=== PATIENT | male | born 1970 | race African-American/Black ===

== ENCOUNTER 2025-04-21 12:29 | Inpatient (IN) ==
--- NOTE | 2025-04-21 13:18 | Emergency Department Note ---
Impression & Plan Thrombocytopenia, Acute idiopathic thrombocytopenic purpura, Chronic anticoagulation, Deep vein thrombosis (DVT) of left upper extremity ED Provider Note CHIEF COMPLAINT: Low platelets HISTORY OF PRESENTING ILLNESS: This 55-year-old male patient presents to the emergency department with a friend for evaluation of low platelets and a concern for bruising The patient states that he was seen in the ER yesterday and was told he had low platelets. Admission was recommended, but the patient declined admission. Today he looks like he has worsening bruising in his mouth as well as bruising to his abdomen and legs. The patient also has blood in his urine which is new today. He denies any hematochezia or melena. Denies any hemoptysis or hematemesis. He is on Eliquis for history of a known DVT with extension into the SVC. He denies any history of low platelet counts. He has been seeing Dr. Farrar of hematology due to his DVTs. No known family history of bleeding disorders. No known personal history of bleeding disorders. Denies any recent injury or trauma. The patient's white blood cell count yesterday was 6.91. Hemoglobin was 12.6 and hematocrit 37.9. Platelet count was 0. aPTT elevated at 65, but other coags were normal. BUN elevated at 24 and glucose 110. CMP otherwise without concerning abnormalities. A consult with Dr. Perry of ENT was made in the ER last night due to the bruising like oral lesions of the buccal membrane and tongue. After reviewing pictures, she did not feel the patient required emergent treatment, but biopsy to be considered if symptoms persist. The patient was ordered TXA swish and spit. The patient declined admission. The patient was to follow-up with hematology this morning. He follows with [facility] hematology and per patient they told him to come back to the ER this morning. He last saw hematology on 04/04/2025. Per their note, he had thrombophilia workup which revealed normal protein C, protein S, and Antithrombin III. Factor V Leiden and prothrombin gene mutation were negative. The DRVVT and/or lupus sensitive APTT screen are prolonged. Additional reflex testing suggest the presence of a factor Xa inhibitor. Recommended repeat LA testing when patient is off anticoagulation. The patient's Doppler ultrasound revealed an occlusive venous thrombus throughout the left internal jugular and brachiocephalic veins, distal extension to the visualized superior vena cava. Vascular surgery evaluated the case and he was to continue with anticoagulation. 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 He had a CT scan of the chest and MRI of the abdomen done that showed bilateral adrenal nodules of indeterminate significance as well as a 2.6 cm indeterminate nodule of the left suprarenal fossa and lesion in the right hepatic lobe which is most likely hemangioma. No history of IV drug use. Unclear etiology for the extensive thrombosis of the left upper extremity. He was to continue the Eliquis indefinitely per hematology. REVIEW OF SYSTEMS: See HPI for pertinent positives and pertinent negatives. ALLERGIES: Chantix, Pollen MEDICATIONS: See below PAST MEDICAL HISTORY: See below PHYSICAL EXAM: VITALS: Vitals are noted on the nurse's note and reviewed by myself. GENERAL: Non toxic, in no acute distress, non-diaphoretic. SKIN: The patient has multiple areas of ecchymosis to his abdomen and lower legs. No obvious petechiae or purpura at this time, but due to the patient's skin tone, faint petechiae or purpura may be missed. Capillary refill <2 sec. EYES: PERRLA. EOMI. Conjunctivae without injection, sclerae without icterus. NOSE: Patent without discharge. No active bleeding. No septal hematoma. MOUTH: The patient has multiple areas of bruising over his tongue, gingiva, and buccal membranes. No active bleeding. Mucous membranes moist. Uvula midline. Airway patent. NECK: Supple without nuchal rigidity. HEART: Regular rate and rhythm without murmurs gallops or rubs. LUNGS: Clear to auscultation bilaterally without wheezes, rales or rhonchi. No retractions or accessory muscle use. ABDOMEN: Positive bowel sounds x 4. Normal tympanic percussion. Soft, nontender to palpation. No masses or hepatosplenomegaly. Em sign negative. No CVA tenderness. No guarding, rigidity, or rebound tenderness. No focal RLQ or LLQ tenderness. NEURO: Patient was alert and oriented. No focal neurological deficits. DIFFERENTIAL DIAGNOSIS: Differential diagnosis includes ITP, TTP, DIC, heparin- induced thrombocytopenia, drug-induced thrombocytopenia, malignancy, infection, coagulopathy, acute intracranial bleed, acute intra abdominal/pelvic bleed, acute cardiopulmonary bleed or abnormality. PE, or others. ED COURSE AND MEDICAL DECISION MAKING: HISTORY FROM INDEPENDENT HISTORIAN: Additional history was obtained from the patient's friend MEDICATIONS GIVEN: 500 mL normal saline solution bolus. Decadron 40 mg IV and IVIG dosed by the ED pharmacist. MONITOR: Continuous air sampling and monitoring: Order was placed for continuous air sampling and monitoring. Patient was placed on the air sampling and monitoring and continuous pulse ox. Patient was noted to be in normal sinus rhythm at an initial rate of 80 bpm per my interpretation. EKG: EKG was interpreted by myself as normal sinus rhythm at 74 bpm with no acute ST or T wave abnormalities. INTERPRETATION OF LABS: I interpreted the labs with full lab results as below in the lab section of this note. Laboratory results pertinent to the emergent complaint are discussed in the MDM section below. The patient was advised to follow up with their PCP and/or specialist(s) for further outpatient monitoring and management of any abnormal results. INTERPRETATION OF IMAGING: Imaging studies were interpreted by myself and read by radiology as per the imaging section of this note. The patient was advised to follow up with their PCP and/or specialist(s) for further outpatient management of any non-emergent abnormal findings. CT scan of the head without contrast showed no evidence for acute intracranial bleed. 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 CTA of the chest showed no evidence for PE. There is a small mass versus thrombus or flow artifact within the SVC which is likely secondary to the patient's known DVT in this area. Atelectasis versus early pneumonia of the medial left lung base. Multinodular goiter with possible right nodule measuring 3 cm. No evidence for acute bleeding. CT scan of the abdomen and pelvis with IV contrast shows no evidence for acute bleeding. Bilateral adrenal nodules with nonspecific density. Mass posterior to the left adrenal gland could represent an exophytic adrenal nodule or other finding. EXTERNAL RECORDS REVIEWED: I reviewed the patient's hematology office visit notes from [facility] as summarized above. Some on the nonemergent findings on the imaging today were also seen on previous imaging and are undergoing outpatient workup. CHRONIC MEDICAL/SOCIAL CONDITIONS AFFECTING CARE: Chronic Eliquis use CONSULTATIONS: Case management. ED pharmacist. Dr. Farrar of [facility] hematology. On-call hospitalist. MDM SUMMARY: I examined the patient. The patient was seen yesterday in the ER for bruising in his mouth. He was found to have a platelet count of 0. The patient declined admission at that time. The patient was to follow-up with hematology this morning as an outpatient, but was advised to come to the ER since he developed blood in his urine. The patient states he still has the bruising in his mouth as well as bruising to his abdomen and legs. He also has the hematuria, but denies other symptoms of bleeding. He denies any other symptoms at this time. An IV lock was placed and labs were drawn. The patient was given 500 mL normal saline solution bolus. White blood cell count normal at 6.66. Hemoglobin stable at 12.4. Platelet count is still 0. Peripheral smear is still pending. aPTT 66, but PT/INR and PTT ratio normal. Fibrinogen elevated at 504. LDH normal at 141. CMP without concerning abnormalities. Lipase slightly elevated at 109. High-sensitivity troponin normal. Magnesium normal. Urinalysis with 3+ protein, 3+ glucose, 2+ ketones, 3+ blood, 3+ bilirubin, positive urobilinogen, 3+ leukocyte esterase, greater than 20 red blood cells, greater than 50 white blood cells, and 2+ bacteria. The patient's blood type is A positive. CT scan of the head, chest, abdomen, and pelvis as above showed no evidence for acute bleeding. However, it does show nonemergent findings that will need further workup/evaluation. I had a meaningful discussion about this patient with Dr. Reynoso who agrees with my assessment and the treatment plan. The patient was agreeable to admission at this time. I spoke with Dr. Farrar of [facility] hematology. He recommended the patient to receive Decadron 40 mg IV once a day for 4 days as well as IVIG. He did not recommend platelet transfusion at this time. The patient was given his first dose of Decadron 40 mg IV in the ER. I spoke with the ED pharmacist in regards to dosing of the IVIG. I spoke with the on-call hospitalist who agreed to admit the patient for further evaluation and treatment. Please refer to their dictation for further details. The patient's care was transferred in stable condition. DIAGNOSIS: Acute thrombocytopenia - presumed ITP DVT of the left upper extremity Chronic Eliquis use Past Med/Surg History Problem List (Updated 04/21/25 @ 23:50 by Jocelyn Soliman PA-C) Deep vein thrombosis (DVT) of left upper extremity (Acute) Acute idiopathic thrombocytopenic purpura (Acute) Essential hypertension Adrenal nodule Dyslipidemia Type 2 diabetes mellitus Chronic anticoagulation (Acute) Thrombocytopenia (Acute) Medical History (Updated 04/21/25 @ 23:50 by Jocelyn Soliman PA-C) Deep vein thrombosis (DVT) of left upper extremity Atopic dermatitis Surgical History (Updated 04/21/25 @ 16:19 by Jessica Arteaga PA-C) No pertinent past surgical history Social History (Updated 04/21/25 @ 18:20 by Jessica Arteaga PA-C) Smoking Status: Current every day smoker Tobacco Type: Cigarettes Cigarettes Per Day: 10/day; Hx Alcohol Use: Yes Alcohol type: beer Hx Substance Use: Yes Substance Use Type Other:: 3 times per week Preferred Language: [place] Communication Ability: Effective Skidder Operator Required: No Beliefs That Will Affect Care: None Current Living Situation: Significant Other current occupation: [employer] Other Information That Helps Us Care for You: No Feels Safe at Home: Yes Safety Concerns: Feels Safe At This Time Assistive Devices: Glasses Allergies Allergies Allergy/AdvReac Type Severity Reaction Status Date / Time pollen extracts Allergy Unknown UNKNWN Verified 04/20/25 15:33 varenicline [From Chantix] AdvReac Insomnia Verified 04/20/25 15:32 Home Meds Home Medications Medication Instructions Recorded Confirmed apixaban 5 mg tablet (Eliquis) 5 mg PO BID 04/20/25 04/21/25 empagliflozin 25 mg tablet 25 mg PO QAM 04/20/25 04/21/25 (Jardiance) fluocinonide 0.05 % topical cream 1 applic topical DAILY 04/20/25 04/21/25 losartan 100 mg tablet 100 mg PO QAM 04/20/25 04/21/25 metformin 500 mg tablet,extended 500 mg PO UD 04/20/25 04/21/25 release 24 hr triamcinolone acetonide 0.1 % 1 applic topical BID 04/20/25 04/21/25 topical ointment Results & Data (ED) Vital Signs Vital Signs - 24 hr 04/21/25 12:32 04/21/25 13:00 04/21/25 13:22 Temperature 36.6 C Temperature Source Temporal Artery Scan Pulse Rate 82 82 83 Pulse Rate [Finger] Pulse Rate from SpO2 Sensor 81 83 Pulse Rhythm [Finger] Pulse Strength [Finger] Respiratory Rate 18 18 15 Respiratory Effort / Characteristics Non-Labored Spontaneous Respiratory Depth Normal Respiratory Pattern Blood Pressure 167/104 H 178/90 H Blood Pressure [Right Arm] Blood Pressure Mean 125 127 Blood Pressure Mean [Right Arm] Blood Pressure Position [Right Arm] Pulse Oximetry 95 97 96 Oxygen Delivery Method Room Air Room Air Room Air Oxygen Flow Rate Sepsis Recent Fever Within 48 Hours No Sepsis New/Unexplained Change in Mental Status No Sepsis Action Taken by Nursing No Action Required 04/21/25 13:23 04/21/25 13:47 04/21/25 14:00 Temperature Temperature Source Pulse Rate 75 Pulse Rate [Finger] 77 Pulse Rate from SpO2 Sensor 75 Pulse Rhythm [Finger] Regular Pulse Strength [Finger] Normal Respiratory Rate 18 18 Respiratory Effort / Characteristics Non-Labored Respiratory Depth Normal Respiratory Pattern Regular Blood Pressure 174/112 H Blood Pressure [Right Arm] 178/90 H Blood Pressure Mean 132 Blood Pressure Mean [Right Arm] 119 Blood Pressure Position [Right Arm] Lying Pulse Oximetry 97 95 96 Oxygen Delivery Method Room Air Room Air Room Air Oxygen Flow Rate 0 Sepsis Recent Fever Within 48 Hours Sepsis New/Unexplained Change in Mental Status Sepsis Action Taken by Nursing 04/21/25 14:41 04/21/25 14:41 04/21/25 14:41 Temperature Temperature Source Pulse Rate 71 Pulse Rate [Finger] 73 Pulse Rate from SpO2 Sensor Pulse Rhythm [Finger] Pulse Strength [Finger] Respiratory Rate 20 16 Respiratory Effort / Characteristics Non-Labored Spontaneous Respiratory Depth Normal Respiratory Pattern Regular Blood Pressure 155/91 H 155/91 H Blood Pressure [Right Arm] 155/91 H Blood Pressure Mean 106 106 Blood Pressure Mean [Right Arm] 112 Blood Pressure Position [Right Arm] Pulse Oximetry 97 99 Oxygen Delivery Method Room Air Oxygen Flow Rate Sepsis Recent Fever Within 48 Hours Sepsis New/Unexplained Change in Mental Status Sepsis Action Taken by Nursing 04/21/25 16:00 04/21/25 17:15 Temperature Temperature Source Pulse Rate 74 Pulse Rate [Finger] 81 Pulse Rate from SpO2 Sensor 74 Pulse Rhythm [Finger] Regular Pulse Strength [Finger] Normal Respiratory Rate 19 18 Respiratory Effort / Characteristics Non-Labored Respiratory Depth Normal Respiratory Pattern Regular Blood Pressure 174/119 H Blood Pressure [Right Arm] 159/98 H Blood Pressure Mean 134 Blood Pressure Mean [Right Arm] 118 Blood Pressure Position [Right Arm] Lying Pulse Oximetry 98 99 Oxygen Delivery Method Room Air Oxygen Flow Rate 0 Sepsis Recent Fever Within 48 Hours Sepsis New/Unexplained Change in Mental Status Sepsis Action Taken by Nursing Laboratory Data 04/21/25 12:50 04/21/25 12:50 Lab Results 04/21/25 04/21/25 04/21/25 Range/Units 12:50 14:05 14:42 WBC 6.66 (4.8-10.8) K/ul RBC 4.41 L (4.70-6.10) M/uL Hgb 12.4 L (14.0-18.0) g/dl Hct 36.8 L (42.0-52.0) % MCV 83.4 (80.0-100.0) fL MCH 28.1 (25.0-34.0) pg MCHC 33.7 (32.0-36.0) g/dL RDW Std Deviation 43.8 (36.4-46.3) fL RDW Coeff of Johnny 14.5 (11.5-14.5) % Plt Count 0 L* (130-400) K/uL Immature Gran % (Auto) 0.6 % Neut % (Auto) 56.0 % Lymph % (Auto) 31.2 % [place] % (Auto) 10.5 % Eos % (Auto) 1.4 % Baso % (Auto) 0.3 % Reticulocyte % (Auto) 1.39 (0.50-2.00) % Neut # (Auto) 3.73 (1.40-6.50) K/uL Lymph # (Auto) 2.08 (1.20-3.40) K/uL [place] # (Auto) 0.70 H (0.11-0.59) K/uL Eos # (Auto) 0.09 (0.00-0.50) K/uL Baso # (Auto) 0.02 (0.00-0.20) K/uL Reticulocyte # 0.060 (0.020-0.100) 10^6/uL Immature Gran # (Auto) 0.04 (0.01-0.20) K/uL Platelet Estimate Signific. Decreased L (Normal) PT 10.6 (9.0-12.0) Seconds INR 1.0 (0.9-1.1) APTT 66 H (21-31) Seconds PTT Ratio 2.5 Fibrinogen 504 H (184-400) mg/dl Sodium 141 (136-145) mmol/L Potassium 3.8 (3.5-5.1) mmol/L Chloride 110 H (98-107) mmol/L Carbon Dioxide 23 (21-32) mmol/L Anion Gap 8 (3-11) BUN 22 (6-23) mg/dl Creatinine 0.89 (0.6-1.4) mg/dl Est Cr Clr Drug Dosing 139.2 ml/min eGFR 100.58 BUN/Creatinine Ratio 24.7 H (10-20) Glucose 106 H (70-99(Fasting)) mg/dl Calcium 8.9 (8.6-10.3) mg/dl Magnesium 1.9 (1.7-2.4) mg/dl Total Bilirubin 0.4 (0.2-1.0) mg/dl AST 22 (13-39) U/L ALT 22 (7-52) U/L Alkaline Phosphatase 98 (34-104) U/L Lactate Dehydrogenase TNP 141 Troponin I High Sens 7.7 (0-20) pg/ml Total Protein 8.1 (6.0-8.3) gm/dl Albumin 3.5 (3.4-5.0) gm/dl Globulin 4.6 H (2.5-4.0) gm/dl Albumin/Globulin Ratio 0.8 L (0.9-2) Lipase 109 H (11-82) U/L Urine Color Red Urine Appearance Turbid A (Clear) Urine pH 8.5 H (4.5-7.5) Ur Specific [place] <= 1.005 (1.000-1.030) Urine Protein 3+ H (Negative) Urine Glucose (UA) 3+ H (Negative) Urine Ketones 2+ H (Negative) Urine Blood 3+ H (Negative) Urine Nitrite Negative (Negative) Urine Bilirubin 3+ H (Negative) Urine Urobilinogen Positive H (Negative) Ur Leukocyte Esterase 3+ H (Negative) Urine RBC >20 H (0-2) /hpf Urine WBC >50 H (0-5) /hpf Ur Epithelial Cells 0-2 (0-2) /hpf Urine Bacteria 2+ H (None Seen) Urine Comment Blood Type Antibody Screen 04/21/25 Range/Units 15:09 WBC (4.8-10.8) K/ul RBC (4.70-6.10) M/uL Hgb (14.0-18.0) g/dl Hct (42.0-52.0) % MCV (80.0-100.0) fL MCH (25.0-34.0) pg MCHC (32.0-36.0) g/dL RDW Std Deviation (36.4-46.3) fL RDW Coeff of Johnny (11.5-14.5) % Plt Count (130-400) K/uL Immature Gran % (Auto) % Neut % (Auto) % Lymph % (Auto) % [place] % (Auto) % Eos % (Auto) % Baso % (Auto) % Reticulocyte % (Auto) (0.50-2.00) % Neut # (Auto) (1.40-6.50) K/uL Lymph # (Auto) (1.20-3.40) K/uL [place] # (Auto) (0.11-0.59) K/uL Eos # (Auto) (0.00-0.50) K/uL Baso # (Auto) (0.00-0.20) K/uL Reticulocyte # (0.020-0.100) 10^6/uL Immature Gran # (Auto) (0.01-0.20) K/uL Platelet Estimate (Normal) PT (9.0-12.0) Seconds INR (0.9-1.1) APTT (21-31) Seconds PTT Ratio Fibrinogen (184-400) mg/dl Sodium (136-145) mmol/L Potassium (3.5-5.1) mmol/L Chloride (98-107) mmol/L Carbon Dioxide (21-32) mmol/L Anion Gap (3-11) BUN (6-23) mg/dl Creatinine (0.6-1.4) mg/dl Est Cr Clr Drug Dosing ml/min eGFR BUN/Creatinine Ratio (10-20) Glucose (70-99(Fasting)) mg/dl Calcium (8.6-10.3) mg/dl Magnesium (1.7-2.4) mg/dl Total Bilirubin (0.2-1.0) mg/dl AST (13-39) U/L ALT (7-52) U/L Alkaline Phosphatase (34-104) U/L Lactate Dehydrogenase Troponin I High Sens (0-20) pg/ml Total Protein (6.0-8.3) gm/dl Albumin (3.4-5.0) gm/dl Globulin (2.5-4.0) gm/dl Albumin/Globulin Ratio (0.9-2) Lipase (11-82) U/L Urine Color Urine Appearance (Clear) Urine pH (4.5-7.5) Ur Specific [place] (1.000-1.030) Urine Protein (Negative) Urine Glucose (UA) (Negative) Urine Ketones (Negative) Urine Blood (Negative) Urine Nitrite (Negative) Urine Bilirubin (Negative) Urine Urobilinogen (Negative) Ur Leukocyte Esterase (Negative) Urine RBC (0-2) /hpf Urine WBC (0-5) /hpf Ur Epithelial Cells (0-2) /hpf Urine Bacteria (None Seen) Urine Comment Blood Type A Positive Antibody Screen NEGATIVE Administered Medications Pantoprazole Sodium (Protonix) 40 mg in 10 mls @ 5 mls/min IV BID CHRIST Stop: 05/21/25 20:59 Last Admin: 04/21/25 22:12 Dose: 5 mls/min Documented By: SCAR Insulin Aspart (Insulin Aspart Per Unit Charge) 0 units SC ACHS CHRIST Stop: 05/21/25 20:59 Last Admin: 04/21/25 20:47 Dose: Not Given Documented By: SCAR Nicotine (Nicotine 21 Mg/24 Hr Tdsy) 1 patch TD QAM [facility]ST Stop: 05/21/25 20:09 Last Admin: 04/21/25 20:45 Dose: Not Given Documented By: SCAR Discontinued Medications Sodium Chloride (Nss) 500 mls @ 999 mls/hr IV .Q31M ONE Stop: 04/21/25 14:14 Last Infusion: 04/21/25 15:10 Dose: Infused Documented By: Admin: 04/21/25 14:39 Dose: 999 mls/hr Documented By: JAYDEN Immune Globulin (Octagam 10%) 200 mls @ 63 mls/hr IV Q1H CHRIST; Protocol Stop: 04/21/25 23:29 Last Admin: 04/21/25 22:40 Dose: 3.17 mg/kg/min, 200 mls/hr Documented By: Titration: 04/21/25 22:40 Dose: Infused Documented By: Titration: 04/21/25 22:09 Dose: 2.38 mg/kg/min, 150 mls/hr Documented By: Titration: 04/21/25 21:36 Dose: 1.43 mg/kg/min, 90 mls/hr Documented By: Admin: 04/21/25 20:33 Dose: 1 mg/kg/min, 63 mls/hr Documented By: Titration: 04/21/25 20:12 Dose: Infused Documented By: Titration: 04/21/25 18:32 Dose: 3.17 mg/kg/min, 200 mls/hr Documented By: Admin: 04/21/25 18:28 Dose: 1 mg/kg/min, 63 mls/hr Documented By: MEENU Immune Globulin (Octagam 10%) 50 mls @ 63 mls/hr IV NOW ONE; Protocol Stop: 04/21/25 17:02 Last Titration: 04/21/25 18:27 Dose: Infused Documented By: Admin: 04/21/25 17:39 Dose: 1 mg/kg/min, 63 mls/hr Documented By: MEENU Dexamethasone 40 mg/ Dextrose 35 mls @ 70 mls/hr IV NOW ONE Stop: 04/21/25 16:59 Last Infusion: 04/21/25 17:59 Dose: Infused Documented By: Admin: 04/21/25 17:29 Dose: 70 mls/hr Documented By: MEENU Ioversol (Optiray 320 125ml) 118 ml IV ONCE ONE Stop: 04/21/25 14:28 Last Admin: 04/21/25 14:28 Dose: 118 ml Documented By: DAVI Imaging Data Radiologist's Impression: Head CT 04/21/25 13:36 CT SCAN OF THE BRAIN WITHOUT IV CONTRAST CLINICAL HISTORY: Evaluate for bleed. COMPARISON STUDY: None TECHNIQUE: Unenhanced axial CT scan of the brain was performed from the vertex to the skull base. A dose lowering technique was utilized adhering to the principles of ALARA. FINDINGS: No acute intracranial hemorrhage, midline shift or mass effect is present. A round 6 mm hyperdense focus at the foramen of Monro represents a colloid cyst. There is no hydrocephalus. Basal cisterns are patent. No extra axial collections are present. There are no findings to suggest acute dural sinus thrombosis or acute territorial infarct. There are no calvarial fracture. IMPRESSION: 1. No acute intracranial findings. 2. 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 No hydrocephalus. ACT 112: Negative or not required by law. Electronically signed by: Gustavo Lima M.D. 04/21/2025 2:49 PM Abdomen/Pelvis CT 04/21/25 13:[address] WITH IV CONTRAST CT DOSE: 4103.67 mGy.cm HISTORY: thrombocytopenia, hematuria, abdominal bruising TECHNIQUE: Multiaxial CT images of the abdomen and pelvis were performed following the IV administration of 120 cc of Optiray, A dose lowering technique was utilized adhering to the principles of ALARA. COMPARISON STUDY: None FINDINGS: ABDOMEN: There are a few tiny cysts in the liver. There is mild fatty liver. Otherwise the liver, gallbladder, spleen, and pancreas are unremarkable. There are bilateral adrenal nodules measuring 2 cm on the left and 1.7 cm on the right. There is a 2.6 cm oval mass posterior to the left adrenal gland and superior to the pancreatic tail series 9 image 98. Kidneys show no hydronephrosis or calculi. No abdominal aortic aneurysm. Pelvis: Prostate is grossly unremarkable. Urinary bladder is mildly distended. There is sigmoid diverticulosis. No acute diverticulitis. Normal appendix. No bowel inflammation or obstruction. No free fluid, free air, or abscess. No soft tissue hematoma seen. No acute osseous findings. IMPRESSION: 1. No acute findings seen. 2. Bilateral adrenal nodules with nonspecific density on this IV contrast exam. Mass posterior to the left adrenal gland could represent an exophytic adrenal nodule or other finding. Suggest follow-up CT or MRI with adrenal mass protocol. 3. Otherwise as described. ACT 112: Positive. There are findings on this exam that require communication between the performing entity and the patient following Patient Test Result Information Act [place] Act 112) guidelines. The above report was generated using voice recognition software. It may contain grammatical, syntax or spelling errors. Electronically signed by: Lanre Lugo M.D. 04/21/2025 2:54 PM Chest CTA 04/21/25 13:43 CT angio chest PE protocol CT DOSE: 4104 HISTORY: PE. TECHNIQUE: Multiple CTA images of the chest were obtained after the intravenous administration of 120 ml Optiray. Coronal and sagittal MIPS were obtained from the axial data set and were submitted for review. All measurements were obtained according to NASCET criteria. A dose lowering technique was utilized adhering to the principles of ALARA. COMPARISON STUDY: None FINDINGS: There is mild bronchial wall thickening suggesting bronchitis. Inspiration is shallow and there is mild atelectasis in the lung bases. There is no lobar consolidation or pleural effusion. There is a small area of patchy groundglass opacity medial left lung base which could represent atelectasis or small area of pneumonitis/early pneumonia. No pneumothorax. There is a large multinodular goiter with a possible right-sided nodule measuring up to 3 cm. No enlarged adenopathy. No pericardial effusion. No pulmonary embolism seen. There is a 1.5 cm lobulated density within the SVC. No thoracic aortic dissection or aneurysm. There is a small area of mixed calcified and noncalcified plaque at the aortic arch. No significant aortic luminal narrowing seen. IMPRESSION: 1. No pulmonary embolism seen. 2. Small mass versus thrombus or flow artifact within the SVC. Suggest follow-up chest CT with normal venous phase contrast to see if this finding persists. 3. Atelectasis versus early pneumonia medial left lung base. 4. Multinodular goiter with possible right nodule measuring 3 cm. If this has not been previously evaluated, suggest follow-up thyroid ultrasound. ACT 112: Positive. There are findings on this exam that require communication between the performing entity and the patient following Patient Test Result Information Act ([place] Act 112) guidelines. The above report was generated using voice recognition software. It may contain grammatical, syntax or spelling errors. Electronically signed by: Lanre Lugo M.D. 04/21/2025 2:55 PM Discharge Plan Visit Data Chief Complaint: Facial Injury/Pain Stated Complaint: BLOOD CLOTS ED Provider: Danuta Reynoso ED Midlevel Provider: Jocelyn Soliman Discharge Problem: Thrombocytopenia, Acute idiopathic thrombocytopenic purpura, Chronic anticoagulation, Deep vein thrombosis (DVT) of left upper extremity Patient Disposition: Admitted As Inpatient Condition: Fair Discharge Instructions Interventions: ED Discharge Assessment Last Done: 04/21/25 19:27
[2025-04-21 14:16] LABS: Partial Thromboplastin Ratio 2.5; Partial Thromboplastin Time 66 Seconds (21-31); Prothrombin Time 10.6 Seconds (9.0-12.0)
[2025-04-21] MEDS: OPTIRAY 320 125ml IV ONE (14:28)
[2025-04-21 14:30] LABS: Hematocrit (blood only) 36.8 % (42.0-52.0); Hemoglobin 12.4 g/dl (14.0-18.0); Mean Corpuscular Hemoglobin 28.1 pg (25.0-34.0); Mean Corpuscular Hgb Conc 33.7 g/dL (32.0-36.0); Mean Corpuscular Volume 83.4 fL (80.0-100.0); Platelet Count 0 K/uL (130-400); RDW Coefficient of Variation 14.5 % (11.5-14.5); RDW Standard Deviation 43.8 fL (36.4-46.3); Red Blood Count 4.41 M/uL (4.70-6.10); White Blood Count 6.66 K/ul (4.8-10.8)
[2025-04-21 14:31] LABS: Alanine Aminotransferase 22 U/L (7-52); Albumin Globulin Ratio 0.8 (0.9-2); Alkaline Phosphatase 98 U/L (34-104); Anion Gap 8 (3-11); Aspartate Aminotransferase 22 U/L (13-39); BUN Creatinine Ratio 24.7 (10-20); Bilirubin,Total 0.4 mg/dl (0.2-1.0); Blood Urea Nitrogen 22 mg/dl (6-23); Calcium 8.9 mg/dl (8.6-10.3); Carbon Dioxide 23 mmol/L (21-32); Chloride 110 mmol/L (98-107); Creatinine Clr Calc Pharmacy 139.2 ml/min; Globulin 4.6 gm/dl (2.5-4.0); Glucose 106 mg/dl (70-99(Fasting)); Lipase 109 U/L (11-82); Magnesium 1.9 mg/dl (1.7-2.4); Potassium 3.8 mmol/L (3.5-5.1); Sodium 141 mmol/L (136-145); Total Protein 8.1 gm/dl (6.0-8.3); Troponin I High Sensitivity 7.7 pg/ml (0-20)
[2025-04-21] MEDS: SODIUM CHLORIDE 0.9% 500 ML IV ONE (14:39)
[2025-04-21 14:42] LABS: Basophils # (auto) 0.02 K/uL (0.00-0.20); Basophils % (auto) 0.3 %; Eosinophils # (auto) 0.09 K/uL (0.00-0.50); Eosinophils % (auto) 1.4 %; Immature Granulocytes # (auto) 0.04 K/uL (0.01-0.20); Immature Granulocytes % (auto) 0.6 %; Lymphocytes # (auto) 2.08 K/uL (1.20-3.40); Lymphocytes % (auto) 31.2 %; Monocytes % (auto) 10.5 %; Neutrophils # (auto) 3.73 K/uL (1.40-6.50); Platelet Estimate Signific. Decreased (Normal); Reticulocyte % 1.39 % (0.50-2.00)
[2025-04-21 14:49] LABS: Fibrinogen 504 mg/dl (184-400)
--- NOTE | 2025-04-21 14:52 | CT Scan Report ---
CT SCAN OF THE BRAIN WITHOUT IV CONTRAST CLINICAL HISTORY: Evaluate for bleed. COMPARISON STUDY: None TECHNIQUE: Unenhanced axial CT scan of the brain was performed from the vertex to the skull base. A dose lowering technique was utilized adhering to the principles of ALARA. FINDINGS: No acute intracranial hemorrhage, midline shift or mass effect is present. A round 6 mm hyp erdense focus at the foramen of Monro represents a colloid cyst. There is no hydrocephalus. Basal cis terns are patent. No extra axial collections are present. There are no findings to suggest acute dura l sinus thrombosis or acute territorial infarct. There are no calvarial fracture. IMPRESSION: 1. No acute intracranial findings. 2. 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 No hydrocephalus. ACT 112: Negative or not required by law. Electronically signed by: Gustavo Lima M.D. 04/21/2025 2:49 PM
--- NOTE | 2025-04-21 14:57 | CT Scan Report ---
CT angio chest PE protocol CT DOSE: 4104 HISTORY: PE. TECHNIQUE: Multiple CTA images of the chest were obtained after the intravenous administration of 120 ml Optiray. Coronal and sagittal MIPS were obtained from the axial data set and were submitted for review. All measurements were obtained according to NASCET criteria. A dose lowering technique was u tilized adhering to the principles of ALARA. COMPARISON STUDY: None FINDINGS: There is mild bronchial wall thickening suggesting bronchitis. Inspiration is shallow and t here is mild atelectasis in the lung bases. There is no lobar consolidation or pleural effusion. Ther e is a small area of patchy groundglass opacity medial left lung base which could represent atelectas is or small area of pneumonitis/early pneumonia. No pneumothorax. There is a large multinodular goite r with a possible right-sided nodule measuring up to 3 cm. No enlarged adenopathy. No pericardial eff usion. No pulmonary embolism seen. There is a 1.5 cm lobulated density within the SVC. No thoracic ao rtic dissection or aneurysm. There is a small area of mixed calcified and noncalcified plaque at the aortic arch. No significant aortic luminal narrowing seen. IMPRESSION: 1. No pulmonary embolism seen. 2. Small mass versus thrombus or flow artifact within the SVC. Suggest follow-up chest CT with normal venous phase contrast to see if this finding persists. 3. Atelectasis versus early pneumonia medial left lung base. 4. Multinodular goiter with possible right nodule measuring 3 cm. If this has not been previously joaquin luated, suggest follow-up thyroid ultrasound. ACT 112: Positive. There are findings on this exam that require communication between the performing entity and the patient following Patient Test Result Information Act [place] Act 112) guidelines. The above report was generated using voice recognition software. It may contain grammatical, syntax o r spelling errors. Electronically signed by: Lanre Lugo M.D. 04/21/2025 2:55 PM
--- NOTE | 2025-04-21 14:57 | CT Scan Report ---
ABDOMEN AND PELVIS CT WITH IV CONTRAST CT DOSE: 4103.67 mGy.cm HISTORY: thrombocytopenia, hematuria, abdominal bruising TECHNIQUE: Multiaxial CT images of the abdomen and pelvis were performed following the IV administrat ion of 120 cc of Optiray, A dose lowering technique was utilized adhering to the principles of ALARA . COMPARISON STUDY: None FINDINGS: ABDOMEN: There are a few tiny cysts in the liver. There is mild fatty liver. Otherwise the liver, gal lbladder, spleen, and pancreas are unremarkable. There are bilateral adrenal nodules measuring 2 cm o n the left and 1.7 cm on the right. There is a 2.6 cm oval mass posterior to the left adrenal gland a nd superior to the pancreatic tail series 9 image 98. Kidneys show no hydronephrosis or calculi. No a bdominal aortic aneurysm. Pelvis: Prostate is grossly unremarkable. Urinary bladder is mildly distended. There is sigmoid diver ticulosis. No acute diverticulitis. Normal appendix. No bowel inflammation or obstruction. No free fl uid, free air, or abscess. No soft tissue hematoma seen. No acute osseous findings. IMPRESSION: 1. No acute findings seen. 2. Bilateral adrenal nodules with nonspecific density on this IV contrast exam. Mass posterior to the left adrenal gland could represent an exophytic adrenal nodule or other finding. Suggest follow-up C T or MRI with adrenal mass protocol. 3. Otherwise as described. ACT 112: Positive. There are findings on this exam that require communication between the performing entity and the patient following Patient Test Result Information Act [place] Act 112) guidelines. The above report was generated using voice recognition software. It may contain grammatical, syntax o r spelling errors. Electronically signed by: Lanre Lugo M.D. 04/21/2025 2:54 PM
[2025-04-21 14:59] LABS: Appearance Urine Turbid (Clear); Bilirubin Urine 3+ (Negative); Blood Urine 3+ (Negative); Color Urine Red; Glucose Urine UA 3+ (Negative); Ketones Urine 2+ (Negative); Leukocyte Esterase Urine 3+ (Negative); Nitrite Urine Negative (Negative); Protein Urine 3+ (Negative); Specific Gravity Urine <= 1.005 (1.000-1.030); Urobilinogen Urine Positive (Negative); pH Urine 8.5 (4.5-7.5)
[2025-04-21 15:43] LABS: Epithelial Cell Urine 0-2 /hpf (0-2); RBC Urine >20 /hpf (0-2); WBC Urine >50 /hpf (0-5)
[2025-04-21 15:44] LABS: Bacteria Urine 2+ (None Seen)
[2025-04-21] MEDS ORDERED: dexAMETHasone**PF** 10 MG/ML VIAL IV ONE (15:56)
[2025-04-21] MEDS ORDERED: Nursing to Pharmacy Communication SCH (17:15)
[2025-04-21] MEDS: dexAMETHasone 40 MG in DEXTROSE 5% 25 ML IV ONE (17:29)
[2025-04-21] MEDS: Octagam 10% IVIG 5 gram bottle IV ONE (17:39)
--- NOTE | 2025-04-21 17:40 | History & Physical Report ---
Date of Service April 21, 2025 Assessment & Plan (1) Acute idiopathic thrombocytopenic purpura: (2) Type 2 diabetes mellitus: (3) Essential hypertension: (4) Deep vein thrombosis (DVT) of left upper extremity: (5) Adrenal nodule: Plan This is a 55 y/o male with DM2, HTN, recent UE DVT, bilateral adrenal nodules, dyslipidemia, and other history as outlined below who presents to the ED with worsening intraoral bleeding and hematuria. Work-up in the ED revealed a platelet count of 0. Hgb was stable from yesterday. CT abd/pel showed no acute findings, continues to show bilateral adrenal nodules. CT head showed no acute intracranial findings, 6 mm colloid cyst at foramen on Monro. CTA chest shows no pulmonary embolism but showed small mass vs. thrombus or flow artifact within the SVC, atelectasis vs. early pneumonia medial left lung base, multinodular goiter with possible right nodule measuring 3 cm (has previously had an FNA of the thyroid that was benign). ED provider spoke with pt's circulator who recommended admission with treatment for possible ITP. #Acute thrombocytopenia #Presumed ITP - Admit to PCU - Per hematology, dexamethasone x 4 days and IVIG - Follow CBC for response - Peripheral smear pending - Hold Eliquis for now due to bleeding risk #Recent LUE DVT with extension to SVC - CTA chest findings noted - Holding Eliquis for now as above - Will need to coordinate with hematology on appropriate timing to resume AC #Possible UTI - culture pending - Starting empiric ceftriaxone #Type 2 Diabetes - last A1c on 03/24/25 was 7.0 - Holding oral agents while admitted - Insulin sliding scale - BSG ACHS - Diabetic diet #Hypertension - BPs have been elevated as outpatient, pt was prescribed amlodipine but did not start due to concerns about side effects - Continue losartan at home dose - Monitor BP overnight and reevaluate in the AM - may need to consider addition of another agent #Bilateral adrenal nodules - Has seen surgery outpatient for this - recommended observation for now. Due for repeat CT in June. Pt seen and reviewed with collaborating physician, Dr. Harrington. Plan of care discussed and as outlined above. Updated pt's sister of the plan of care via phone. All questions answered. Code status: Full code DVT prophylaxis: Petrona I spent a total of 85 minutes coordinating, documenting, and providing care for this patient excluding time spent in the performance of separately billed services or time spent by another provider/QHP. Kathy Arteaga PA-C History of Present Illness Chief Complaint: bleeding in mouth, hematuria Primary Care Provider: Edenilson Roldan MD This is a 55 y/o male with DM2, HTN, recent UE DVT, bilateral adrenal nodules, dyslipidemia, and other history as outlined below who presents to the ED with worsening intraoral bleeding and hematuria. Pt developed acute DVT of the LUE in Dec 2024. Clot extended throughout the left internal jugular and brachiocephalic veins with distal extension to the SVC. Pt was started on Eliquis and evaluated by hematology. Thrombophilia workup is negative. Hematology recommended continuation of Eliquis indefinitely. Pt was seen by Dr. Mckinnon in March for the adrenal nodules - scheduled to have a f/u CT in June. 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 Yesterday, when he woke up, he noted a gritty sensation in his mouth, then noted multiple areas of intraoral ecchymosis so came to the ED for evaluation. In the ED, he was noted to have new thrombocytopenia with platelet count of 0 and was recommended to be admitted. However, pt states he became very overwhelmed and signed out AMA. Since being home, he noted worsening of the intraoral bruising and new hematuria that started last night. Pt spoke with hematology this morning who recommended he return to the ED. In the ED, labs again revealed platelets of 0 so patient was referred for admission. His main complaints are the intraoral bruising and hematuria. He notes the lesions in his mouth are painful but denies dysphagia or odynophagia. He denies epistaxis or blood in stool. 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 He denies recent illness. No chest pain, dyspnea, nausea, vomiting, syncope, BEDOYA, palpitations, unusual joint pains, peripheral edema. He is on losartan for HTN but BPs have remained elevated. He was prescribed amlodipine but did not start this due to concerns that it would cause edema. Allergies Allergy/AdvReac Type Severity Reaction Status Date / Time pollen extracts Allergy Unknown UNKNWN Verified 04/20/25 15:33 varenicline [From Chantix] AdvReac Insomnia Verified 04/20/25 15:32 Home Medications Medication Instructions Recorded Confirmed Type apixaban 5 mg tablet (Eliquis) 5 mg PO BID 04/20/25 04/21/25 History empagliflozin 25 mg tablet 25 mg PO QAM 04/20/25 04/21/25 History (Jardiance) fluocinonide 0.05 % topical cream 1 applic topical DAILY 04/20/25 04/21/25 History losartan 100 mg tablet 100 mg PO QAM 04/20/25 04/21/25 History metformin 500 mg tablet,extended 500 mg PO UD 04/20/25 04/21/25 History release 24 hr triamcinolone acetonide 0.1 % 1 applic topical BID 04/20/25 04/21/25 History topical ointment Past Med/Surg History Problem List (Updated 04/21/25 @ 18:51 by Jessica Arteaga PA-C) Acute idiopathic thrombocytopenic purpura Essential hypertension Adrenal nodule Dyslipidemia Type 2 diabetes mellitus Chronic anticoagulation (Acute) Thrombocytopenia (Acute) Medical History (Updated 04/21/25 @ 18:51 by Jessica Arteaga PA-C) Deep vein thrombosis (DVT) of left upper extremity Atopic dermatitis Surgical History (Updated 04/21/25 @ 16:19 by Jessica Arteaga PA-C) No pertinent past surgical history Social History (Updated 04/21/25 @ 18:20 by Jessica Arteaga PA-C) Smoking Status: Current every day smoker Cigarettes Per Day: 10; Hx Alcohol Use: No Hx Substance Use: Yes Substance Use Type Other:: edibles Preferred Language: Amharic current occupation: [employer] Feels Safe at Home: Yes Review of Systems Review of Systems: All systems reviewed & are unremarkable except as noted in Subjective Physical Exam Physical Exam: General: awake, alert, NAD HEENT: no scleral icterus, +multiple petechial lesions buccal mucosa, tongue, palate Neck: supple, trachea midline Heart: RRR, no M/G/R Lungs: CTA bilaterally Abdomen: soft, NTND, +BS Skin: +areas of ecchymosis bilateral UE and LE Neurologic: Ox3, no confusion or dysarthria Results & Data Results & Data Vital Signs (Past 12 Hours) Vital Signs Temp Pulse Pulse Resp BP BP Pulse Ox 04/21/25 17:15 81 18 159/98 H 99 04/21/25 16:00 74 19 174/119 H 98 04/21/25 14:41 71 16 155/91 H 99 04/21/25 14:41 155/91 H 04/21/25 14:41 73 20 155/91 H 97 04/21/25 14:00 75 18 174/112 H 96 04/21/25 13:47 95 04/21/25 13:23 77 18 178/90 H 97 04/21/25 13:22 83 15 178/90 H 96 04/21/25 13:00 82 18 167/104 H 97 04/21/25 12:32 36.6 C 82 18 95 O2 Del Method O2 Flow Rate 04/21/25 17:15 Room Air 0 04/21/25 16:00 04/21/25 14:41 04/21/25 14:41 04/21/25 14:41 Room Air 04/21/25 14:00 Room Air 04/21/25 13:47 Room Air 04/21/25 13:23 Room Air 0 04/21/25 13:22 Room Air 04/21/25 13:00 Room Air 04/21/25 12:32 Room Air Laboratory Results Lab Results 04/21/25 04/21/25 04/21/25 Range/Units 12:50 14:05 14:42 WBC 6.66 (4.8-10.8) K/ul RBC 4.41 L (4.70-6.10) M/uL Hgb 12.4 L (14.0-18.0) g/dl Hct 36.8 L (42.0-52.0) % MCV 83.4 (80.0-100.0) fL MCH 28.1 (25.0-34.0) pg MCHC 33.7 (32.0-36.0) g/dL RDW Std Deviation 43.8 (36.4-46.3) fL RDW Coeff of Johnny 14.5 (11.5-14.5) % Plt Count 0 L* (130-400) K/uL Immature Gran % (Auto) 0.6 % Neut % (Auto) 56.0 % Lymph % (Auto) 31.2 % [place] % (Auto) 10.5 % Eos % (Auto) 1.4 % Baso % (Auto) 0.3 % Reticulocyte % (Auto) 1.39 (0.50-2.00) % Neut # (Auto) 3.73 (1.40-6.50) K/uL Lymph # (Auto) 2.08 (1.20-3.40) K/uL [place] # (Auto) 0.70 H (0.11-0.59) K/uL Eos # (Auto) 0.09 (0.00-0.50) K/uL Baso # (Auto) 0.02 (0.00-0.20) K/uL Reticulocyte # 0.060 (0.020-0.100) 10^6/uL Immature Gran # (Auto) 0.04 (0.01-0.20) K/uL Platelet Estimate Signific. Decreased L (Normal) PT 10.6 (9.0-12.0) Seconds INR 1.0 (0.9-1.1) APTT 66 H (21-31) Seconds PTT Ratio 2.5 Fibrinogen 504 H (184-400) mg/dl Sodium 141 (136-145) mmol/L Potassium 3.8 (3.5-5.1) mmol/L Chloride 110 H (98-107) mmol/L Carbon Dioxide 23 (21-32) mmol/L Anion Gap 8 (3-11) BUN 22 (6-23) mg/dl Creatinine 0.89 (0.6-1.4) mg/dl Est Cr Clr Drug Dosing 139.2 ml/min eGFR 100.58 BUN/Creatinine Ratio 24.7 H (10-20) Glucose 106 H (70-99(Fasting)) mg/dl Calcium 8.9 (8.6-10.3) mg/dl Magnesium 1.9 (1.7-2.4) mg/dl Total Bilirubin 0.4 (0.2-1.0) mg/dl AST 22 (13-39) U/L ALT 22 (7-52) U/L Alkaline Phosphatase 98 (34-104) U/L Lactate Dehydrogenase TNP 141 Troponin I High Sens 7.7 (0-20) pg/ml Total Protein 8.1 (6.0-8.3) gm/dl Albumin 3.5 (3.4-5.0) gm/dl Globulin 4.6 H (2.5-4.0) gm/dl Albumin/Globulin Ratio 0.8 L (0.9-2) Lipase 109 H (11-82) U/L Urine Color Red Urine Appearance Turbid A (Clear) Urine pH 8.5 H (4.5-7.5) Ur Specific [place] <= 1.005 (1.000-1.030) Urine Protein 3+ H (Negative) Urine Glucose (UA) 3+ H (Negative) Urine Ketones 2+ H (Negative) Urine Blood 3+ H (Negative) Urine Nitrite Negative (Negative) Urine Bilirubin 3+ H (Negative) Urine Urobilinogen Positive H (Negative) Ur Leukocyte Esterase 3+ H (Negative) Urine RBC >20 H (0-2) /hpf Urine WBC >50 H (0-5) /hpf Ur Epithelial Cells 0-2 (0-2) /hpf Urine Bacteria 2+ H (None Seen) Urine Comment Blood Type Antibody Screen 04/21/25 Range/Units 15:09 WBC (4.8-10.8) K/ul RBC (4.70-6.10) M/uL Hgb (14.0-18.0) g/dl Hct (42.0-52.0) % MCV (80.0-100.0) fL MCH (25.0-34.0) pg MCHC (32.0-36.0) g/dL RDW Std Deviation (36.4-46.3) fL RDW Coeff of Johnny (11.5-14.5) % Plt Count (130-400) K/uL Immature Gran % (Auto) % Neut % (Auto) % Lymph % (Auto) % [place] % (Auto) % Eos % (Auto) % Baso % (Auto) % Reticulocyte % (Auto) (0.50-2.00) % Neut # (Auto) (1.40-6.50) K/uL Lymph # (Auto) (1.20-3.40) K/uL [place] # (Auto) (0.11-0.59) K/uL Eos # (Auto) (0.00-0.50) K/uL Baso # (Auto) (0.00-0.20) K/uL Reticulocyte # (0.020-0.100) 10^6/uL Immature Gran # (Auto) (0.01-0.20) K/uL Platelet Estimate (Normal) PT (9.0-12.0) Seconds INR (0.9-1.1) APTT (21-31) Seconds PTT Ratio Fibrinogen (184-400) mg/dl Sodium (136-145) mmol/L Potassium (3.5-5.1) mmol/L Chloride (98-107) mmol/L Carbon Dioxide (21-32) mmol/L Anion Gap (3-11) BUN (6-23) mg/dl Creatinine (0.6-1.4) mg/dl Est Cr Clr Drug Dosing ml/min eGFR BUN/Creatinine Ratio (10-20) Glucose (70-99(Fasting)) mg/dl Calcium (8.6-10.3) mg/dl Magnesium (1.7-2.4) mg/dl Total Bilirubin (0.2-1.0) mg/dl AST (13-39) U/L ALT (7-52) U/L Alkaline Phosphatase (34-104) U/L Lactate Dehydrogenase Troponin I High Sens (0-20) pg/ml Total Protein (6.0-8.3) gm/dl Albumin (3.4-5.0) gm/dl Globulin (2.5-4.0) gm/dl Albumin/Globulin Ratio (0.9-2) Lipase (11-82) U/L Urine Color Urine Appearance (Clear) Urine pH (4.5-7.5) Ur Specific [place] (1.000-1.030) Urine Protein (Negative) Urine Glucose (UA) (Negative) Urine Ketones (Negative) Urine Blood (Negative) Urine Nitrite (Negative) Urine Bilirubin (Negative) Urine Urobilinogen (Negative) Ur Leukocyte Esterase (Negative) Urine RBC (0-2) /hpf Urine WBC (0-5) /hpf Ur Epithelial Cells (0-2) /hpf Urine Bacteria (None Seen) Urine Comment Blood Type A Positive Antibody Screen NEGATIVE Diagnostic Findings Head CT 04/21/25 13:36 CT SCAN OF THE BRAIN WITHOUT IV CONTRAST CLINICAL HISTORY: Evaluate for bleed. COMPARISON STUDY: None TECHNIQUE: Unenhanced axial CT scan of the brain was performed from the vertex to the skull base. A dose lowering technique was utilized adhering to the principles of ALARA. FINDINGS: No acute intracranial hemorrhage, midline shift or mass effect is present. A round 6 mm hyperdense focus at the foramen of Monro represents a colloid cyst. There is no hydrocephalus. Basal cisterns are patent. No extra axial collections are present. There are no findings to suggest acute dural sinus thrombosis or acute territorial infarct. There are no calvarial fracture. IMPRESSION: 1. No acute intracranial findings. 2. 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 No hydrocephalus. ACT 112: Negative or not required by law. Electronically signed by: Gustavo Lima M.D. 04/21/2025 2:49 PM Abdomen/Pelvis CT 04/21/25 13:[address] WITH IV CONTRAST CT DOSE: 4103.67 mGy.cm HISTORY: thrombocytopenia, hematuria, abdominal bruising TECHNIQUE: Multiaxial CT images of the abdomen and pelvis were performed following the IV administration of 120 cc of Optiray, A dose lowering technique was utilized adhering to the principles of ALARA. COMPARISON STUDY: None FINDINGS: ABDOMEN: There are a few tiny cysts in the liver. There is mild fatty liver. Otherwise the liver, gallbladder, spleen, and pancreas are unremarkable. There are bilateral adrenal nodules measuring 2 cm on the left and 1.7 cm on the right. There is a 2.6 cm oval mass posterior to the left adrenal gland and superior to the pancreatic tail series 9 image 98. Kidneys show no hydronephrosis or calculi. No abdominal aortic aneurysm. Pelvis: Prostate is grossly unremarkable. Urinary bladder is mildly distended. There is sigmoid diverticulosis. No acute diverticulitis. Normal appendix. No bowel inflammation or obstruction. No free fluid, free air, or abscess. No soft tissue hematoma seen. No acute osseous findings. IMPRESSION: 1. No acute findings seen. 2. Bilateral adrenal nodules with nonspecific density on this IV contrast exam. Mass posterior to the left adrenal gland could represent an exophytic adrenal nodule or other finding. Suggest follow-up CT or MRI with adrenal mass protocol. 3. Otherwise as described. ACT 112: Positive. There are findings on this exam that require communication between the performing entity and the patient following Patient Test Result Information Act [place] Act 112) guidelines. The above report was generated using voice recognition software. It may contain grammatical, syntax or spelling errors. Electronically signed by: Lanre Lugo M.D. 04/21/2025 2:54 PM Chest CTA 04/21/25 13:43 CT angio chest PE protocol CT DOSE: 4104 HISTORY: PE. TECHNIQUE: Multiple CTA images of the chest were obtained after the intravenous administration of 120 ml Optiray. Coronal and sagittal MIPS were obtained from the axial data set and were submitted for review. All measurements were obtained according to NASCET criteria. A dose lowering technique was utilized adhering to the principles of ALARA. COMPARISON STUDY: None FINDINGS: There is mild bronchial wall thickening suggesting bronchitis. Inspiration is shallow and there is mild atelectasis in the lung bases. There is no lobar consolidation or pleural effusion. There is a small area of patchy groundglass opacity medial left lung base which could represent atelectasis or small area of pneumonitis/early pneumonia. No pneumothorax. There is a large multinodular goiter with a possible right-sided nodule measuring up to 3 cm. No enlarged adenopathy. No pericardial effusion. No pulmonary embolism seen. There is a 1.5 cm lobulated density within the SVC. No thoracic aortic dissection or aneurysm. There is a small area of mixed calcified and noncalcified plaque at the aortic arch. No significant aortic luminal narrowing seen. IMPRESSION: 1. No pulmonary embolism seen. 2. Small mass versus thrombus or flow artifact within the SVC. Suggest follow-up chest CT with normal venous phase contrast to see if this finding persists. 3. Atelectasis versus early pneumonia medial left lung base. 4. Multinodular goiter with possible right nodule measuring 3 cm. If this has not been previously evaluated, suggest follow-up thyroid ultrasound. ACT 112: Positive. There are findings on this exam that require communication between the performing entity and the patient following Patient Test Result Information Act ([place] Act 112) guidelines. The above report was generated using voice recognition software. It may contain grammatical, syntax or spelling errors. Electronically signed by: Lanre Lugo M.D. 04/21/2025 2:55 PM Medications Administered Discontinued Medications Sodium Chloride (Nss) 500 mls @ 999 mls/hr IV .Q31M ONE Stop: 04/21/25 14:14 Last Infusion: 04/21/25 15:10 Dose: Infused Documented By: Admin: 04/21/25 14:39 Dose: 999 mls/hr Documented By: JAYDEN Dexamethasone 40 mg/ Dextrose 35 mls @ 70 mls/hr IV NOW ONE Stop: 04/21/25 16:59 Last Admin: 04/21/25 17:29 Dose: 70 mls/hr Documented By: MEENU Ioversol (Optiray 320 125ml) 118 ml IV ONCE ONE Stop: 04/21/25 14:28 Last Admin: 04/21/25 14:28 Dose: 118 ml Documented By: DAVI Code Status & VTE Plan VTE Prophylaxis Plan VTE Prophylaxis will be ordered: Yes Supervising Physician Co-Signing Physician Notes Patient seen and examined independently. Discussed with above provider. Patient with a past medical history of DVT on Eliquis presented to the hospital with severe thrombocytopenia. He had presented initially on 04/20 but decided to leave AGAINST MEDICAL ADVICE but presented back to the ED today again. He has petechiae in bilateral lower extremity as well as oral mucosa. He also reports hematuria. Denies any hemoptysis, altered mental status, vision changes or abdominal pain. ED provider reached out to Dr. Farrar(patient's circulator) who recommended patient to be started on dexamethasone for 4 days and IVIG for possible ITP. Will start ceftriaxone for possible UTI. Discussed with patient's sister( who is a physician) over the phone. Plan to coordinate with patient's circulator in next subsequent days depending on clinical improvement. I have reviewed the advanced practitioner's documentation, and I agree with, and take responsibility for the plan of care I spent a total of 30 minutes coordinating, documenting, and providing care for this patient excluding time spent in the performance of separately billed services. 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
[2025-04-21] MEDS: Octagam 10% IVIG 20 gram bottle IV SCH (18:28)
[2025-04-21] MEDS ORDERED: GLUCOSE 40% GEL 15 GM TUBE PO PRN (20:10)
[2025-04-21] MEDS ORDERED: DEXTROSE 50% 50 ML SYRINGE IV PRN (20:10)
[2025-04-21] MEDS ORDERED: ACETAMINOPHEN 325 MG TAB PO PRN (20:10)
[2025-04-21] MEDS ORDERED: GLUCOSE 10 TAB/TUBE PO PRN (20:10)
[2025-04-21] MEDS ORDERED: CARBOHYDRATES FOR HYPOGLYCEMIA PO PRN (20:10)
[2025-04-21] MEDS ORDERED: GLUCAGON FOR INJ 1 MG VIAL SQ PRN (20:10)
[2025-04-21] MEDS: NICOTINE 21 MG/24 HR TDSY TD SCH (20:45)
[2025-04-21] MEDS: INSULIN ASPART PER UNIT CHARGE SC SCH (20:47)
[2025-04-21] MEDS: PANTOprazole 40 MG/10 ML SYR IV SCH (22:12)
[2025-04-22] MEDS: LOSARTAN POTASSIUM 50 MG TAB PO STA (00:17)
--- NOTE | 2025-04-22 06:39 | Electrocardiogram Report ---
Test Reason : Blood Pressure : */* mmHG Vent. Rate : 74 BPM Atrial Rate : 74 BPM P-R Int : 146 ms QRS Dur : 90 ms QT Int : 390 ms P-R-T Axes : 31 -37 -14 degrees QTcB Int : 432 ms Normal sinus rhythm Left axis deviation Minimal voltage criteria for LVH, may be normal variant ( R in aVL ) Abnormal ECG No previous ECGs available Confirmed by Clarence Fontenot ([id number]) on 04/22/2025 6:39:21 AM Referred By: Confirmed By: Clarence Fontenot
[2025-04-22 07:26] LABS: Calcium 8.5 mg/dl (8.6-10.3); Potassium 4.2 mmol/L (3.5-5.1)
--- NOTE | 2025-04-22 07:47 | Hospitalist Progress Note ---
Date of Service April 22, 2025 Assessment & Plan (1) Acute idiopathic thrombocytopenic purpura: (2) Type 2 diabetes mellitus: (3) Essential hypertension: (4) Deep vein thrombosis (DVT) of left upper extremity: (5) Adrenal nodule: Plan Mr Tapia is a 55 y/o male with DM2, HTN, recent extensive LUE DVT, bilateral adrenal nodules, dyslipidemia, and other history as outlined below admitted for concern of ITP. Work-up in the ED revealed a platelet count of 0. Hgb was stable from yesterday. CT abd/pel showed no acute findings, continues to show bilateral adrenal nodules. CT head showed no acute intracranial findings, 6 mm colloid cyst at foramen on [place]. CTA chest shows no pulmonary embolism but showed small mass vs. thrombus or flow artifact within the SVC, atelectasis vs. early pneumonia medial left lung base, multinodular goiter with possible right nodule measuring 3 cm (has previously had an FNA of the thyroid that was benign). 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 Discussion with Dr Farrar about patient's case was had, who recommended patient get transferred given his primary hematologic concerns with recent unprovoked DVT and now platelet dyscrasia. Discussed case with [place] (per patient request), plan to transfer to med/tele at [place] with accepting physician Dr. Walsh #Paroxysmal A Fib 3 min episode of A fib on tele starting metoprolol 12.5 q 6 h holding AC iso thrombocytopenia #Acute thrombocytopenia, suspected ITP - Per hematology, recommend transfer to tertiary care -Continue while admitted dexamethasone -s/p 105gm IVG - Follow CBC for response - Peripheral smear noncontributory - Hold Eliquis for now due to bleeding risk -elevated globlins/protein gap, ordered SPEP #Recent LUE DVT with extension to SVC - CTA chest findings noted, residual burden in SVC - Holding Eliquis for now as above #Possible UTI - culture pending, asymptomatic - continue empiric ceftriaxone #Type 2 Diabetes - last A1c on 03/24/25 was 7.0 - Holding oral agents while admitted - Insulin sliding scale - BSG ACHS - Diabetic diet #Hypertension - BPs have been elevated as outpatient, pt was prescribed amlodipine but did not start due to concerns about side effects - Continue losartan at home dose - Monitor BP overnight and reevaluate in the AM - may need to consider addition of another agent #Bilateral adrenal nodules - Has seen surgery outpatient for this - recommended observation for now. Due for repeat CT in June. stable on CT this admission Code status: Full code DVT prophylaxis: SCDs Admission and Anticipated Discharge Date Admission Date: April 21, 2025 Subjective Reports subjective improvement in mouth lesions and resolved tongue pain endorses anxiety over situation denies chest pain, palpitations, visible blood in urine Discussed at length with sisters and patient about transfer given ongoing conflicting hematologic issues warranting further evaluation Physical Exam Constitutional: WD/WN, vitals as above ENMT: near resolved purpura on tongue, some residual lesion on left lateral border as well as on bilateral buccal mucosa Cardiovascular: tachycardic Gastrointestinal (Abdomen): normal bowel sounds, soft, nontender, no hepatosplenomegaly Results & Data Results & Data Vital Signs (Past 12 Hours) Vital Signs Temp Pulse Pulse Resp BP Pulse Ox O2 Del Method 04/22/25 02:46 36.4 C L 65 20 153/93 H 94 Room Air 04/22/25 01:35 79 04/21/25 23:32 36.7 C 77 18 176/110 H 92 Room Air 04/21/25 19:50 36.6 C 75 20 187/98 H 94 Room Air Laboratory Results Short CBC 04/21/25 04/22/25 Range/Units 12:50 06:37 WBC 6.66 5.36 (4.8-10.8) K/ul Hgb 12.4 L 11.1 L (14.0-18.0) g/dl Hct 36.8 L 32.8 L (42.0-52.0) % Plt Count 0 L* 0 L* (130-400) K/uL BMP 04/21/25 04/22/25 12:50 06:37 Sodium 141 135 L Potassium 3.8 4.2 Chloride 110 H 107 Carbon Dioxide 23 21 BUN 22 22 Creatinine 0.89 0.88 Glucose 106 H 148 H Calcium 8.9 8.5 L Liver Function 04/21/25 Range/Units 12:50 Total Bilirubin 0.4 (0.2-1.0) mg/dl AST 22 (13-39) U/L ALT 22 (7-52) U/L Alkaline Phosphatase 98 (34-104) U/L Albumin 3.5 (3.4-5.0) gm/dl Urine 04/21/25 Range/Units 14:42 Urine Color Red Urine Appearance Turbid A (Clear) Urine pH 8.5 H (4.5-7.5) Ur Specific [place] <= 1.005 (1.000-1.030) Urine Protein 3+ H (Negative) Urine Glucose (UA) 3+ H (Negative) Medications Administered Home Medications Medication Instructions Recorded Confirmed Last Taken apixaban 5 mg tablet (Eliquis) 5 mg PO BID 04/20/25 04/21/25 04/21/25 AM DOSE empagliflozin 25 mg tablet 25 mg PO QAM 04/20/25 04/21/25 04/21/25 (Jardiance) fluocinonide 0.05 % topical cream 1 applic topical DAILY 04/20/25 04/21/25 Unknown losartan 100 mg tablet 100 mg PO QAM 04/20/25 04/21/25 04/21/25 metformin 500 mg tablet,extended 500 mg PO UD 04/20/25 04/21/25 04/21/25 release 24 hr AM triamcinolone acetonide 0.1 % 1 applic topical BID 04/20/25 04/21/25 Unknown topical ointment Active Medications Generic Name Dose Route Start Last Admin Trade Name Fanny PRN Reason Stop Dose Admin Betamethasone Dipropion Augmented 1 appln 04/22/25 09:00 04/22/25 08:11 Betamethasone Dip Aug (Diprolene) 0.05% Cr 15 Gm Tube EXT 05/22/25 08:59 1 appln DAILY CHRIST Administration Pantoprazole Sodium 40 mg in 10 mls @ 5 mls/min 04/21/25 21:00 04/21/25 22:12 Protonix IV 05/21/25 20:59 5 mls/min BID CHRIST Administration Insulin Aspart 0 units 04/21/25 21:00 04/22/25 08:09 Insulin Aspart Per Unit Charge SC 05/21/25 20:59 16 units ACHS CHRIST Administration Losartan Potassium 100 mg 04/22/25 09:00 04/22/25 08:10 Losartan Potassium 50 Mg Tab PO 05/22/25 08:59 100 mg QAM CHRIST Administration Miscellaneous 1 each 04/22/25 08:59 04/22/25 08:10 Remove Nicoderm Patch N/A 05/22/25 08:58 Not Given [id number] [facility] Nicotine 1 patch 04/21/25 20:10 04/22/25 08:13 Nicotine 21 Mg/24 Hr Tdsy TD 05/21/25 20:09 Not Given QAM [facility] (2) Type 2 diabetes mellitus Diabetes mellitus complication detail: with dermatitis Diabetes mellitus complication status: with skin complications Diabetes mellitus usp insulin use: without usp use Qualified Code(s): E11.620 - Type 2 diabetes mellitus with diabetic dermatitis (4) Deep vein thrombosis (DVT) of left upper extremity Affected thrombotic vein of extremity: unspecified vein of extremity Chronicity: unspecified Qualified Code(s): I82.622 - Acute embolism and thrombosis of deep veins of left upper extremity
[2025-04-22] MEDS: LOSARTAN POTASSIUM 50 MG TAB PO SCH (08:10)
[2025-04-22 08:11] LABS: Hematocrit (blood only) 32.8 % (42.0-52.0); Hemoglobin 11.1 g/dl (14.0-18.0); Mean Corpuscular Hemoglobin 28.5 pg (25.0-34.0); Mean Corpuscular Hgb Conc 33.8 g/dL (32.0-36.0); Mean Corpuscular Volume 84.1 fL (80.0-100.0); Platelet Count 0 K/uL (130-400); RDW Coefficient of Variation 14.4 % (11.5-14.5); RDW Standard Deviation 43.6 fL (36.4-46.3); White Blood Count 5.36 K/ul (4.8-10.8)
[2025-04-22] MEDS: BETAMETHASONE DIP AUG (DIPROLENE) 0.05% CR 15 GM TUBE EXT SCH (08:11)
[2025-04-22 08:27] LABS: Basophils # (auto) 0.01 K/uL (0.00-0.20); Basophils % (auto) 0.2 %; Immature Granulocytes # (auto) 0.03 K/uL (0.01-0.20); Immature Granulocytes % (auto) 0.6 %; Lymphocytes # (auto) 1.14 K/uL (1.20-3.40); Lymphocytes % (auto) 21.3 %; Monocytes # (auto) 0.11 K/uL (0.11-0.59); Monocytes % (auto) 2.1 %; Neutrophils # (auto) 4.07 K/uL (1.40-6.50); Neutrophils % (auto) 75.8 %
[2025-04-22] MEDS ORDERED: IMMUNE GLOBULIN (HUMAN) SOLN IV SCH (09:00)
[2025-04-22] MEDS: cefTRIAXone SODIUM 2,000 MG/50 ML BAG IV SCH (10:36)
[2025-04-22] MEDS: dexAMETHasone 40 MG in DEXTROSE 5% 25 ML IV SCH (10:40)
[2025-04-22] MEDS: METOPROLOL TARTRATE 25 MG TAB PO SCH (11:21)
[2025-04-22] MEDS: carvediloL 3.125 MG TAB PO SCH (12:45)
--- NOTE | 2025-04-22 13:36 | Electrocardiogram Report ---
Test Reason : Blood Pressure : */* mmHG Vent. Rate : 68 BPM Atrial Rate : 68 BPM P-R Int : 136 ms QRS Dur : 118 ms QT Int : 418 ms P-R-T Axes : 76 -15 -32 degrees QTcB Int : 444 ms Normal sinus rhythm T wave abnormality, consider inferior ischemia Abnormal ECG When compared with ECG of 21-Apr-2025 13:56, T wave inversion more evident in Inferior leads Confirmed by Sajan Arredondo ([id number]) on 04/22/2025 1:36:22 PM Referred By: REFERRED SELF Confirmed By: Sajan Arredondo
[2025-04-22] MEDS ORDERED: Octagam 10% IVIG 5 gram bottle IV SCH (21:00)
[2025-04-22] MEDS ORDERED: Octagam 10% IVIG 20 gram bottle IV SCH (22:00)
[2025-04-23 07:26] LABS: Hematocrit (blood only) 31.7 % (42.0-52.0); Mean Corpuscular Hemoglobin 28.4 pg (25.0-34.0); Mean Corpuscular Hgb Conc 34.7 g/dL (32.0-36.0); Mean Corpuscular Volume 81.9 fL (80.0-100.0); Platelet Count 0 K/uL (130-400); RDW Coefficient of Variation 14.2 % (11.5-14.5); RDW Standard Deviation 41.5 fL (36.4-46.3); Red Blood Count 3.87 M/uL (4.70-6.10); White Blood Count 11.61 K/ul (4.8-10.8)
[2025-04-23 07:31] LABS: Calcium 8.5 mg/dl (8.6-10.3); Creatinine Clr Calc Pharmacy 136.3 ml/min; Potassium 4.1 mmol/L (3.5-5.1)
[2025-04-23 08:04] LABS: Basophils # (auto) 0.01 K/uL (0.00-0.20); Basophils % (auto) 0.1 %; Immature Granulocytes # (auto) 0.07 K/uL (0.01-0.20); Immature Granulocytes % (auto) 0.6 %; Lymphocytes # (auto) 1.98 K/uL (1.20-3.40); Lymphocytes % (auto) 17.1 %; Monocytes # (auto) 0.68 K/uL (0.11-0.59); Monocytes % (auto) 5.9 %; Neutrophils # (auto) 8.87 K/uL (1.40-6.50); Neutrophils % (auto) 76.3 %
[2025-04-23] MEDS ORDERED: Octagam 10% IVIG 20 gram bottle IV SCH (22:00)
[2025-04-26 11:16] LABS: Albumin 3.3 g/dL (3.8-4.8); Alpha 1 Globulin 0.3 g/dL (0.2-0.3); Alpha 2 Globulin 0.8 g/dL (0.5-0.9); Beta-1-Globulin 0.5 g/dL (0.4-0.6); Beta-2-Globulin 0.5 g/dL (0.2-0.5); Gamma Globulin 3.3 g/dL (0.8-1.7); Monoclonal Protein Band 1 DNR g/dL (NONE DETECTED); Monoclonal Protein Band 2 DNR g/dL (NONE DETECTED); Monoclonal Protein Band 3 DNR g/dL (NONE DETECTED); Total Protein 8.8 g/dL (6.1-8.1)
--- NOTE | 2025-04-29 07:10 | Discharge Summary ---
Discharge Summary Date of Service April 29, 2025 Principal Dx & Hospital Course #1 = Principal Diagnosis (1) Acute idiopathic thrombocytopenic purpura: (2) Type 2 diabetes mellitus: (3) Essential hypertension: (4) Deep vein thrombosis (DVT) of left upper extremity: (5) Adrenal nodule: Plan Mr Tapia is a 55 y/o male with DM2, HTN, recent extensive LUE DVT, bilateral adrenal nodules, dyslipidemia, and other history as outlined below admitted for concern of ITP. Work-up in the ED revealed a platelet count of 0. Hgb was stable from yesterday. CT abd/pel showed no acute findings, continues to show bilateral adrenal nodules. CT head showed no acute intracranial findings, 6 mm colloid cyst at foramen on [place]. CTA chest shows no pulmonary embolism but showed small mass vs. thrombus or flow artifact within the SVC, atelectasis vs. early pneumonia medial left lung base, multinodular goiter with possible right nodule measuring 3 cm (has previously had an FNA of the thyroid that was benign). 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 Discussion with Dr Farrar about patient's case was had, who recommended patient get transferred given his primary hematologic concerns with recent unprovoked DVT and now platelet dyscrasia. Discussed case with [place] (per patient request), plan to transfer to med/tele at [place] with accepting physician Dr. Walsh #Paroxysmal A Fib 3 min episode of A fib on tele starting metoprolol 12.5 q 6 h holding AC iso thrombocytopenia #Acute thrombocytopenia, suspected ITP - Per hematology, recommend transfer to tertiary care -Continue while admitted dexamethasone -s/p 105gm IVG - Follow CBC for response - Peripheral smear noncontributory - Hold Eliquis for now due to bleeding risk -elevated globlins/protein gap, ordered SPEP #Recent LUE DVT with extension to SVC - CTA chest findings noted, residual burden in SVC - Holding Eliquis for now as above #Possible UTI - culture pending, asymptomatic - continue empiric ceftriaxone #Type 2 Diabetes - last A1c on 03/24/25 was 7.0 - Holding oral agents while admitted - Insulin sliding scale - BSG ACHS - Diabetic diet #Hypertension - BPs have been elevated as outpatient, pt was prescribed amlodipine but did not start due to concerns about side effects - Continue losartan at home dose - Monitor BP overnight and reevaluate in the AM - may need to consider addition of another agent #Bilateral adrenal nodules - Has seen surgery outpatient for this - recommended observation for now. Due for repeat CT in June. stable on CT this admission Code status: Full code DVT prophylaxis: SCDs Notes For Next Care Provider Medication Changes From Visit held eliquis started metoprolol iso a fib Admission HPI Per Admitting Provider This is a 55 y/o male with DM2, HTN, recent UE DVT, bilateral adrenal nodules, dyslipidemia, and other history as outlined below who presents to the ED with worsening intraoral bleeding and hematuria. Pt developed acute DVT of the LUE in Dec 2024. Clot extended throughout the left internal jugular and brachiocephalic veins with distal extension to the SVC. Pt was started on Eliquis and evaluated by hematology. Thrombophilia workup is negative. Hematology recommended continuation of Eliquis indefinitely. Pt was seen by Dr. Mckinnon in March for the adrenal nodules - scheduled to have a f/u CT in June. 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 Yesterday, when he woke up, he noted a gritty sensation in his mouth, then noted multiple areas of intraoral ecchymosis so came to the ED for evaluation. In the ED, he was noted to have new thrombocytopenia with platelet count of 0 and was recommended to be admitted. However, pt states he became very overwhelmed and signed out AMA. Since being home, he noted worsening of the intraoral bruising and new hematuria that started last night. Pt spoke with hematology this morning who recommended he return to the ED. In the ED, labs again revealed platelets of 0 so patient was referred for admission. His main complaints are the intraoral bruising and hematuria. He notes the lesions in his mouth are painful but denies dysphagia or odynophagia. He denies epistaxis or blood in stool. 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 He denies recent illness. No chest pain, dyspnea, nausea, vomiting, syncope, BEDOYA, palpitations, unusual joint pains, peripheral edema. He is on losartan for HTN but BPs have remained elevated. He was prescribed amlodipine but did not start this due to concerns that it would cause edema. Admission Exam Per Admitting Provider General: awake, alert, NAD HEENT: no scleral icterus, +multiple petechial lesions buccal mucosa, tongue, palate Neck: supple, trachea midline Heart: RRR, no M/G/R Lungs: CTA bilaterally Abdomen: soft, NTND, +BS Skin: +areas of ecchymosis bilateral UE and LE Neurologic: Ox3, no confusion or dysarthria Discharge Exam did not see on day of d/c Updated Medication List Medication Instructions Recorded Confirmed Type apixaban 5 mg tablet (Eliquis) 5 mg PO BID 04/20/25 04/21/25 History empagliflozin 25 mg tablet 25 mg PO QAM 04/20/25 04/21/25 History (Jardiance) fluocinonide 0.05 % topical cream 1 applic topical DAILY 04/20/25 04/21/25 History losartan 100 mg tablet 100 mg PO QAM 04/20/25 04/21/25 History metformin 500 mg tablet,extended 500 mg PO UD 04/20/25 04/21/25 History release 24 hr triamcinolone acetonide 0.1 % 1 applic topical BID 04/20/25 04/21/25 History topical ointment metoprolol tartrate 25 mg tablet 12.5 mg (1/2 x 25 mg) PO Q6H #0 04/22/25 Rx tabs nicotine 21 mg/24 hr daily 1 patch transdermal QAM #0 ea 04/22/25 Rx transdermal patch (Nicoderm CQ) Hospital Stay Data Consultations 04/21/25 16:59 ED Decision to Admit Stat 04/22/25 15:38 Burn CD for patient Stat 04/22/25 15:48 Burn CD for patient Stat Diagnostic Imagining Performed 04/21/25 13:36 CT head/brain wo con Stat 04/21/25 13:43 CT abd pelvis IV con only Stat CT angio chest PE protocol Stat Pending Results Patient Have Any Pending Studies at Discharge: No Discharge Instructions Given to Patient (Per Discharging Provider) You were admitted for low platelets (thrombocytopenia) Work-up in the ED revealed a platelet count of 0. CT abd/pel showed no acute findings, continues to show bilateral adrenal nodules. CT head showed no acute intracranial findings, 6 mm colloid cyst at foramen on [place]. CTA chest shows no pulmonary embolism but showed small mass vs. thrombus or flow artifact within the SVC, atelectasis vs. early pneumonia medial left lung base, multinodular goiter with possible right nodule measuring 3 cm (has previously had an FNA of the thyroid that was benign). Discussion with Dr Farrar about your case was had, who recommended patient get transferred given your primary blood-related concerns with recent unprovoked blood clot and now platelet dyscrasia. Plan to transfer to [place] with accepting physician Dr. Walsh #Paroxysmal A Fib 3 min episode of A fib on tele starting metoprolol 12.5 q 6 h holding AC iso thrombocytopenia #Acute thrombocytopenia, suspected ITP - Per hematology, recommend transfer to tertiary care -Continue while admitted dexamethasone -s/p 105gm IVG - Follow CBC for response - Peripheral smear noncontributory - Hold Eliquis for now due to bleeding risk -elevated globlins/protein gap, ordered SPEP #Recent LUE DVT with extension to SVC - CTA chest findings noted, residual burden in SVC - Holding Eliquis for now as above #Possible UTI - culture pending, asymptomatic - continue empiric ceftriaxone #Type 2 Diabetes - last A1c on 03/24/25 was 7.0 - Holding oral agents while admitted - Insulin sliding scale - BSG ACHS - Diabetic diet #Hypertension - BPs have been elevated as outpatient, pt was prescribed amlodipine but did not start due to concerns about side effects - Continue losartan at home dose - Monitor BP overnight and reevaluate in the AM - may need to consider addition of another agent #Bilateral adrenal nodules - Has seen surgery outpatient for this - recommended observation for now. Due for repeat CT in June. stable on CT this admission Total Time Total Time Spent Total Time Spent (In Minutes): 0
== END 2025-04-23 20:19 | disposition short-term general hospital (02) | DRG 813 ==
LOC: ED 12:29 → SUATTDRO 17:18 → 2S 17:18

== ENCOUNTER 2025-07-25 20:17 | Observation (INO) ==
--- NOTE | 2025-07-25 21:09 | Emergency Department Note ---
Impression & Plan Recurrent falls, MAGDA (acute kidney injury), Tachycardia, Elevated troponin, Thrombocytopenia ED Provider Note HISTORY OF PRESENT ILLNESS: Patient is a 55-year-old male presenting with generalized weakness and recurrent falls. Patient reportedly was just discharged a week and a half ago from [facility] after being admitted for intracranial hemorrhage. Patient has a history of ITP. He is on Eliquis. He reportedly has been feeling very lightheaded and dizzy like he is going to pass out when he gets up over the last 10 days. Denies any fevers or chills. No any chest pain or shortness of breath. He has fallen twice in the last 2 days secondary to this lightheadedness. He denies hitting his head with his falls. However, he was primary doctor referred him to the emergency department given his history of thrombocytopenia. Patient reports a history of DVT. Denies any PE history. Denies any abdominal pain, nausea or vomiting. Denies any dysuria or hematuria. Reports she has no lightheadedness or dizziness while seated, but only when standing. He reports good p.o. intake. ROS: as above PHYSICAL EXAM: Constitutional: Patient appears in no acute distress. HENT: Head: Normocephalic and atraumatic. Eyes: EOMI, PERRL Mouth/Throat: Mucous membranes moist. Neck: Trachea midline. Neck supple. Cardiovascular: RRR, No murmurs, rubs or gallops. Intact distal pulses. Pulmonary/Chest: No respiratory distress. Breath sounds clear and equal bilaterally. No wheezes or rales Abdominal: Abdomen soft, no tenderness, rebound or guarding. Musculoskeletal: No edema, tenderness or deformity noted. Skin: Warm and dry. No rash, erythema, pallor or cyanosis Psychiatric: Appropriate mood and affect for situation. Neurological: Alert and keenly responsive. CN II-XII grossly intact, moving all extremities equally and fully. MDM: - Vitals signs showed tachycardia - History obtained via patient. History as above. - Chronic conditions affecting care: DM-2; thrombocytopenia; HTN; ITP; HLD - Differential diagnoses include, but are not limited to: Dehydration; electrolyte abnormality; ACS; pneumonia; dysrhythmia; CVA; intracranial hemorrhage - Order placed for continuous cardiac monitoring. At this time, monitor showed rate of 82 bpm with normal sinus rhythm, per my interpretation. - External medical records reviewed. Discharge summary dated 04/29/2025 was reviewed. Patient was admitted for ITP. He had a platelet count of 0 on arrival. Patient was subsequently transferred to [facility] due to his unprovoked DVT and platelet dyscrasia - EKG image interpreted by myself showed normal sinus rhythm. Rate 97 bpm. QT 346. No acute ischemic changes. - Laboratory workup interpreted by myself showed leukocytosis (WBC 14.92); anemia (Hgb 8.6); thrombocytopenia (plt 40); normal electrolytes; MAGDA (Cr 2.06); elevated troponin (35.4) - CXR image reviewed by myself is negative for pneumonia, per my interpretation. - CT head wo contrast negative for acute pathology - CT cervical spine wo contrast negative - Orthostatic vital signs showed patient was grossly positive and noted to have significant tachycardia with position changes. - Patient was ordered 1 L normal saline for his MAGDA and orthostasis. However, when nursing went to administer the saline, the patient refused. I did elem back and discussed the results and plan of care with the patient. He reported that "I do not like this hospital and I want to be transferred to [facility]." I did discuss with the patient that based on his pathologies on laboratory workup today, we could care for him and treat him here at [facility] and he would not need transfer to a tertiary care facility. However, he is demanding that I speak with [facility]. - Did discuss case with [facility] hospitalist, Dr. Kohli, at [id number]. After discussion of the patient's test results, she reported that "this does not warrant a transfer to a tertiary care center." - Discussed tertiary care facilities recommendations with the patient and his significant other is at bedside and we called his sister to also discussed results. He is begrudgingly agreeable to admission and IV fluids at this time. - Discussion was had with rn case manager about patient's case and need for admission - Hospitalist consulted for admission - Patient admitted to [facility] for further evaluation and management. ASSESSMENT AND PLAN: Diagnosis: recurrent falls; MAGDA; tachycardia; elevated troponin; thrombocytopenia Plan: admit Past Med/Surg History Problem List (Updated 07/26/25 @ 01:57 by Danuta Reynoso MD) Thrombocytopenia (Acute) Elevated troponin (Acute) Tachycardia (Acute) MAGDA (acute kidney injury) (Acute) Recurrent falls (Acute) Deep vein thrombosis (DVT) of left upper extremity (Acute) Acute idiopathic thrombocytopenic purpura (Acute) Essential hypertension Adrenal nodule Dyslipidemia Type 2 diabetes mellitus Chronic anticoagulation (Acute) Thrombocytopenia (Acute) Medical History (Updated 07/26/25 @ 01:57 by Danuta Reynoso MD) Deep vein thrombosis (DVT) of left upper extremity Atopic dermatitis Surgical History No pertinent past surgical history Social History Smoking Status: Never smoker Tobacco Type: Cigarettes Cigarettes Per Day: 10/day; Hx Alcohol Use: Yes Alcohol type: beer Hx Substance Use: Yes Substance Use Type Other:: 3 times per week Preferred Language: Kazakh Communication Ability: Effective Blankmaker Required: No Beliefs That Will Affect Care: None Current Living Situation: Significant Other current occupation: [employer] Feels Safe at Home: Yes Assistive Devices: Glasses Allergies Allergies Allergy/AdvReac Type Severity Reaction Status Date / Time pollen extracts Allergy Intermediate ITCHY Verified 07/25/25 21:33 EYES, SNEEZING varenicline [From Chantix] AdvReac Intermediate Insomnia Verified 07/25/25 21:33 Home Meds Home Medications Medication Instructions Recorded Confirmed apixaban 5 mg tablet (Eliquis) 5 mg PO BID 04/20/25 07/25/25 fluocinonide 0.05 % topical cream 1 applic topical DAILY 04/20/25 07/25/25 losartan 100 mg tablet 100 mg PO QAM 04/20/25 07/25/25 triamcinolone acetonide 0.1 % 1 applic topical BID PRN Rash 04/20/25 07/25/25 topical ointment amlodipine 5 mg tablet 5 mg PO DAILY 07/25/25 07/25/25 aspirin 81 mg tablet,delayed 81 mg PO DAILY 07/25/25 07/25/25 release atorvastatin 80 mg tablet 80 mg PO DAILY 07/25/25 07/25/25 insulin glargine-yfgn 100 unit/mL 5 unit subcut HS 07/25/25 07/25/25 (3 mL) subcutaneous pen metoprolol tartrate 25 mg tablet 25 mg PO BID 07/25/25 07/25/25 pantoprazole 40 mg tablet,delayed 40 mg PO DAILY 07/25/25 07/25/25 release prednisone 10 mg tablet 10 mg PO DAILY 07/25/25 07/25/25 Results & Data (ED) Vital Signs Vital Signs - 24 hr 07/25/25 20:20 07/25/25 20:46 07/25/25 20:55 Temperature 36.5 C Temperature Source Temporal Artery Scan Pulse Rate - Lying 111 H Pulse Rate - Sitting 112 H Pulse Rate - Standing 132 H Pulse Rate 111 H Pulse Rate [Apical] Respiratory Rate 18 Respiratory Effort / Characteristics Non-Labored Spontaneous Respiratory Depth Normal Respiratory Pattern Blood Pressure - Lying 145/93 H Blood Pressure - Sitting 117/76 Blood Pressure- Standing 114/87 Blood Pressure 118/85 Blood Pressure [Right Arm] Blood Pressure Mean 96 Blood Pressure Mean [Right Arm] Pulse Oximetry 98 98 Oxygen Delivery Method Room Air Room Air Sepsis Recent Fever Within 48 Hours No Sepsis New/Unexplained Change in Mental Status No Sepsis Action Taken by Nursing No Action Required 07/25/25 20:55 07/25/25 21:11 07/25/25 21:44 Temperature 36.6 C 37 C Temperature Source Oral Oral Pulse Rate - Lying Pulse Rate - Sitting Pulse Rate - Standing Pulse Rate 102 H Pulse Rate [Apical] 121 H 86 Respiratory Rate 18 18 Respiratory Effort / Characteristics Non-Labored Respiratory Depth Normal Respiratory Pattern Blood Pressure - Lying Blood Pressure - Sitting Blood Pressure- Standing Blood Pressure Blood Pressure [Right Arm] 114/87 119/82 Blood Pressure Mean Blood Pressure Mean [Right Arm] 96 94 Pulse Oximetry 97 98 Oxygen Delivery Method Room Air Room Air Sepsis Recent Fever Within 48 Hours Sepsis New/Unexplained Change in Mental Status Sepsis Action Taken by Nursing 07/25/25 22:00 07/25/25 23:00 07/26/25 00:00 Temperature 37.1 C 36.9 C 36.8 C Temperature Source Oral Oral Oral Pulse Rate - Lying Pulse Rate - Sitting Pulse Rate - Standing Pulse Rate Pulse Rate [Apical] 94 H 78 82 Respiratory Rate 22 20 18 Respiratory Effort / Characteristics Non-Labored Spontaneous Non-Labored Spontaneous Non-Labored Respiratory Depth Normal Normal Normal Respiratory Pattern Regular Regular Blood Pressure - Lying Blood Pressure - Sitting Blood Pressure- Standing Blood Pressure Blood Pressure [Right Arm] 122/82 107/62 115/68 Blood Pressure Mean Blood Pressure Mean [Right Arm] 95 77 83 Pulse Oximetry 96 98 97 Oxygen Delivery Method Room Air Room Air Room Air Sepsis Recent Fever Within 48 Hours Sepsis New/Unexplained Change in Mental Status Sepsis Action Taken by Nursing 07/26/25 01:04 Temperature Temperature Source Pulse Rate - Lying Pulse Rate - Sitting Pulse Rate - Standing Pulse Rate 82 Pulse Rate [Apical] Respiratory Rate Respiratory Effort / Characteristics Respiratory Depth Respiratory Pattern Blood Pressure - Lying Blood Pressure - Sitting Blood Pressure- Standing Blood Pressure Blood Pressure [Right Arm] Blood Pressure Mean Blood Pressure Mean [Right Arm] Pulse Oximetry Oxygen Delivery Method Sepsis Recent Fever Within 48 Hours Sepsis New/Unexplained Change in Mental Status Sepsis Action Taken by Nursing Laboratory Data 07/25/25 20:36 07/25/25 20:36 Lab Results 07/25/25 07/25/25 Range/Units 20:36 22:42 WBC 14.92 H (4.8-10.8) K/ul RBC 3.43 L (4.70-6.10) M/uL Hgb 8.6 L (14.0-18.0) g/dl Hct 29.2 L (42.0-52.0) % MCV 85.1 (80.0-100.0) fL MCH 25.1 (25.0-34.0) pg MCHC 29.5 L (32.0-36.0) g/dL RDW Std Deviation 66.4 H (36.4-46.3) fL RDW Coeff of Johnny 21.2 H (11.5-14.5) % Plt Count 40 L (130-400) K/uL Immature Gran % (Auto) 0.7 % Neut % (Auto) 79.5 % Lymph % (Auto) 9.9 % Luna % (Auto) 8.8 % Eos % (Auto) 0.8 % Baso % (Auto) 0.3 % Neut # (Auto) 11.85 H (1.40-6.50) K/uL Lymph # (Auto) 1.48 (1.20-3.40) K/uL Luna # (Auto) 1.32 H (0.11-0.59) K/uL Eos # (Auto) 0.12 (0.00-0.50) K/uL Baso # (Auto) 0.05 (0.00-0.20) K/uL Immature Gran # (Auto) 0.10 (0.01-0.20) K/uL Absolute Nucleated RBC 0.02 (0.00-0.12) K/uL Nucleated RBC % (auto) 0.1 % Polychromasia 1+ Anisocytosis Present Tear Drop Cells 1+ PT 12.2 H (9.0-12.0) Seconds INR 1.1 (0.9-1.1) Sodium 138 (136-145) mmol/L Potassium 4.2 (3.5-5.1) mmol/L Chloride 106 (98-107) mmol/L Carbon Dioxide 20 L (21-32) mmol/L Anion Gap 12 H (3-11) BUN 50 H (6-23) mg/dl Creatinine 2.06 H (0.6-1.4) mg/dl Est Cr Clr Drug Dosing Not Reportable eGFR 37.11 BUN/Creatinine Ratio 24.3 H (10-20) Glucose 166 H (70-99(Fasting)) mg/dl Calcium 9.0 (8.6-10.3) mg/dl Total Bilirubin 0.3 (0.2-1.0) mg/dl AST 15 (13-39) U/L ALT 14 (7-52) U/L Alkaline Phosphatase 107 H (34-104) U/L Troponin I High Sens 35.4 H 34.1 H (0-20) pg/ml Total Protein 7.5 (6.0-8.3) gm/dl Albumin 4.0 (3.4-5.0) gm/dl Globulin 3.5 (2.5-4.0) gm/dl Albumin/Globulin Ratio 1.1 (0.9-2) Administered Medications Sodium Chloride (Nss) 1,000 mls @ 999 mls/hr IV .Q1H1M ONE Stop: 07/26/25 02:05 Last Admin: 07/26/25 01:10 Dose: 999 mls/hr Documented By: KRISTOPHER Discontinued Medications Sodium Chloride (Nss) 1,000 mls @ 999 mls/hr IV .Q1H1M ONE Stop: 07/26/25 00:30 Last Admin: 07/25/25 23:34 Dose: Not Given Documented By: KRISTOPHER Imaging Data Radiologist's Impression: Cervical Spine CT 07/25/25 20:31 Exam(s): CT C SPINE EXAM: CT Cervical Spine Without Intravenous Contrast CLINICAL HISTORY: recurrent falls. TECHNIQUE: Axial computed tomography images of the cervical spine without intravenous contrast. CTDI is 26.68 mGy and DLP is 597.28 mGy-cm. Automated exposure control was utilized for the study. A dose lowering technique was utilized adhering to the principles of ALARA. COMPARISON: No relevant prior studies available. FINDINGS: Vertebrae: No acute fracture. Maintenance of height of the vertebral bodies. No subluxation. Reversal of the normal cervical lordosis. Discs/spinal canal/neural foramina: Multilevel degenerative changes, greatest between C4-5 and C6-7 with prominent posterior disc osteophytes at C4-5 and C5-6. Soft tissues: Prevertebral soft tissues are unremarkable. Enlarged mdfou-jwynfyb-znup-left lobes of the thyroid gland with multiple nodules. IMPRESSION: Reversal of the normal cervical lordosis, most commonly seen with muscle spasm or positioning. Multilevel degenerative changes. Multinodular goiter. Electronically signed by: Willie Whatley M.D. 07/26/25 00:00 AM Chest X-Ray 07/25/25 20:31 Exam(s): XR CXR 1 VIEW EXAM: XR Chest, 1 View CLINICAL HISTORY: dizziness. TECHNIQUE: Frontal view of the chest. COMPARISON: No relevant prior studies available. FINDINGS: Lungs: No infiltrate. Hypoventilation with mild bibasilar atelectasis. No CHF. Pleural space: No pleural effusion. No pneumothorax. Heart: Unremarkable. No cardiomegaly. Mediastinum: Unremarkable. Normal mediastinal contour. Bones/joints: Unremarkable. No acute fracture. IMPRESSION: Hypoventilation with mild bibasilar atelectasis. Electronically signed by: Willie Whatley M.D. 07/26/25 00:[address] 07/25/25 20:31 Exam(s): CT HEAD Without Contrast EXAM: CT Head Without Intravenous Contrast CLINICAL HISTORY: recurrent falls. TECHNIQUE: Axial computed tomography images of the head/brain without intravenous contrast. CTDI is 63.46 mGy and DLP is 961.59 mGy-cm. Automated exposure control was utilized for the study. A dose lowering technique was utilized adhering to the principles of ALARA. COMPARISON: 04/21/2025. FINDINGS: Brain: Ventricles and sulci are normal in size and configuration for age. No acute stroke. No acute hemorrhage. 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 No abnormal extra-axial fluid collection. Ventricles: No hydrocephalus. No midline shift. Bones/joints: Unremarkable. No acute fracture. Soft tissues: Unremarkable. Sinuses: Unremarkable as visualized. No acute sinusitis. IMPRESSION: No acute abnormality. 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 No hydrocephalus. Electronically signed by: Willie Whatley M.D. 07/25/25 23:33 PM Discharge Plan Visit Data Chief Complaint: Referred by Doctor Stated Complaint: CAT SCAN ED Provider: Danuta Reynoso Discharge Problem: Recurrent falls, MAGDA (acute kidney injury), Tachycardia, Elevated troponin, Thrombocytopenia Condition: Fair Forms Stand Alone Forms: My [facility] ClearGist Prescriptions Prescriptions: No Action atorvastatin 80 mg tablet 80 mg PO DAILY prednisone 10 mg tablet 10 mg PO DAILY Rx Instructions: PER PT "ONLY HAVE 1 MORE WEEK UNTIL IT ENDS". amlodipine 5 mg tablet 5 mg PO DAILY aspirin 81 mg Tablet,Delayed Release (Dr/Ec) 81 mg PO DAILY pantoprazole 40 mg tablet,delayed release (DR/EC) 40 mg PO DAILY insulin glargine-yfgn 100 unit/mL (3 mL) insulin pen 5 unit SUBCUT HS metoprolol tartrate 25 mg tablet 25 mg PO BID Eliquis 5 mg tablet 5 mg PO BID Hold Instructions: ITP fluocinonide 0.05 % cream 1 applic TOPICAL DAILY losartan 100 mg tablet 100 mg PO QAM triamcinolone acetonide 0.1 % ointment 1 applic TOPICAL BID PRN (Reason: Rash) Rx Instructions: apply 2 times a day to rash on trunk/arms/legs Referrals Referrals: Edenilson Roldan MD [Primary Care Provider] -
[2025-07-25 21:11] LABS: Alanine Aminotransferase 14 U/L (7-52); Albumin Globulin Ratio 1.1 (0.9-2); Albumin Level 4.0 gm/dl (3.4-5.0); Alkaline Phosphatase 107 U/L (34-104); Anion Gap 12 (3-11); Bilirubin,Total 0.3 mg/dl (0.2-1.0); Blood Urea Nitrogen 50 mg/dl (6-23); Calcium 9.0 mg/dl (8.6-10.3); Carbon Dioxide 20 mmol/L (21-32); Chloride 106 mmol/L (98-107); Globulin 3.5 gm/dl (2.5-4.0); Glucose 166 mg/dl (70-99(Fasting)); Potassium 4.2 mmol/L (3.5-5.1); Sodium 138 mmol/L (136-145); Total Protein 7.5 gm/dl (6.0-8.3)
[2025-07-25 21:17] LABS: INR 1.1 (0.9-1.1); Prothrombin Time 12.2 Seconds (9.0-12.0)
[2025-07-25 21:20] LABS: Anisocytosis Present; Hematocrit (blood only) 29.2 % (42.0-52.0); Hemoglobin 8.6 g/dl (14.0-18.0); Immature Granulocytes # (auto) 0.10 K/uL (0.01-0.20); Immature Granulocytes % (auto) 0.7 %; Mean Corpuscular Hemoglobin 25.1 pg (25.0-34.0); Mean Corpuscular Volume 85.1 fL (80.0-100.0); Platelet Count 40 K/uL (130-400); Polychromasia 1+; RDW Standard Deviation 66.4 fL (36.4-46.3); Red Blood Count 3.43 M/uL (4.70-6.10); Tear Drop Cells 1+; White Blood Count 14.92 K/ul (4.8-10.8)
--- NOTE | 2025-07-25 23:33 | CT Scan Report ---
Exam(s): CT HEAD Without Contrast EXAM: CT Head Without Intravenous Contrast CLINICAL HISTORY: recurrent falls. TECHNIQUE: Axial computed tomography images of the head/brain without intravenous contrast. CTDI is 63.46 mGy and DLP is 961.59 mGy-cm. Automated exposure control was utilized for the study. A dose lowering technique was utilized adhering to the principles of ALARA. COMPARISON: 04/21/2025. FINDINGS: Brain: Ventricles and sulci are normal in size and configuration for age. No acute stroke. No acute hemorrhage. 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 No abnormal extra-axial fluid collection. Ventricles: No hydrocephalus. No midline shift. Bones/joints: Unremarkable. No acute fracture. Soft tissues: Unremarkable. Sinuses: Unremarkable as visualized. No acute sinusitis. IMPRESSION: No acute abnormality. 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 No hydrocephalus. Electronically signed by: Willie Whtaley M.D. 07/25/25 23:33 PM
[2025-07-25] MEDS: SODIUM CHLORIDE 0.9% 1,000 ML IV ONE (23:34)
--- NOTE | 2025-07-26 00:01 | CT Scan Report ---
Exam(s): CT C SPINE EXAM: CT Cervical Spine Without Intravenous Contrast CLINICAL HISTORY: recurrent falls. TECHNIQUE: Axial computed tomography images of the cervical spine without intravenous contrast. CTDI is 26.68 mGy and DLP is 597.28 mGy-cm. Automated exposure control was utilized for the study. A dose lowering technique was utilized adhering to the principles of ALARA. COMPARISON: No relevant prior studies available. FINDINGS: Vertebrae: No acute fracture. Maintenance of height of the vertebral bodies. No subluxation. Reversal of the normal cervical lordosis. Discs/spinal canal/neural foramina: Multilevel degenerative changes, greatest between C4-5 and C6-7 with prominent posterior disc osteophytes at C4-5 and C5-6. Soft tissues: Prevertebral soft tissues are unremarkable. Enlarged coarw-mnpgoot-azuu-left lobes of the thyroid gland with multiple nodules. IMPRESSION: Reversal of the normal cervical lordosis, most commonly seen with muscle spasm or positioning. Multilevel degenerative changes. Multinodular goiter. Electronically signed by: Willie Whatley M.D. 07/26/25 00:00 AM
--- NOTE | 2025-07-26 00:02 | XRay Report ---
Exam(s): XR CXR 1 VIEW EXAM: XR Chest, 1 View CLINICAL HISTORY: dizziness. TECHNIQUE: Frontal view of the chest. COMPARISON: No relevant prior studies available. FINDINGS: Lungs: No infiltrate. Hypoventilation with mild bibasilar atelectasis. No CHF. Pleural space: No pleural effusion. No pneumothorax. Heart: Unremarkable. No cardiomegaly. Mediastinum: Unremarkable. Normal mediastinal contour. Bones/joints: Unremarkable. No acute fracture. IMPRESSION: Hypoventilation with mild bibasilar atelectasis. Electronically signed by: Willie Whatley M.D. 07/26/25 00:01 AM
[2025-07-26] MEDS: SODIUM CHLORIDE 0.9% 1,000 ML IV ONE (01:10)
[2025-07-26 02:16] LABS: Magnesium 2.2 mg/dl (1.7-2.4)
--- NOTE | 2025-07-26 02:29 | History & Physical Report ---
Date of Service July 26, 2025 Assessment & Plan (1) Dizziness: Plan: Assessment and plan below following discussion of case with ED provider and reviewing patient history/pertinent normal/abnormal diagnostic test results. Dizziness likely secondary to orthostasis Orthostatic vitals noted to be positive at the ER. 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 Eliquis Full code Text document was generated using coresystems voice recognition software. It may contain grammatical or spelling errors. Kindly contact undersigned for clarification of any documentation item in question. History of Present Illness Chief Complaint: Dizziness Primary Care Provider: Edenilson Roldan MD History obtained from patient and records. Medical history significant for hypertension, hyperlipidemia, CVA, traumatic subdural hematoma, chronic anemia (baseline hemoglobin 8-9), ITP currently on CellCept, dapsone, outpatient Doptelet, ongoing steroid taper; DVT status post IVC on Eliquis, history chronic left IJ thrombus, DM 2 insulin requiring, Klinefelter syndrome as per records, history of thyroid nodules, bilateral adrenal nodules as per records, past tobacco abuse. Prolonged [facility] confinement April 23 to July 13, 2025 following [facility] transfer. Patient admitted for refractory ITP. Hospital stay complicated by multiple DVTs status post IVC filter placement, subacute stroke, subdural hematoma, NSTEMI, and hospital-acquired pneumonia. Patient with dizzy spells the last few days. No headache symptoms. Denies chest pain, SOB, abdominal pain. No obvious bleeding. Compliant with home medications. Denies flulike symptoms. Appetite okay. Patient directed to ER by outpatient provider. Medical History as above Surgical History : IVC filter, epistaxis procedure Family History : MS Personal/Social history : Past tobacco abuse, occasional EtOH intake, [employer] Allergies Allergy/AdvReac Type Severity Reaction Status Date / Time pollen extracts Allergy Intermediate ITCHY Verified 07/25/25 21:33 EYES, SNEEZING varenicline [From Chantix] AdvReac Intermediate Insomnia Verified 07/25/25 21:33 Home Medications Medication Instructions Recorded Confirmed Type apixaban 5 mg tablet (Eliquis) 5 mg PO BID 04/20/25 07/25/25 History fluocinonide 0.05 % topical cream 1 applic topical DAILY 04/20/25 07/25/25 History losartan 100 mg tablet 100 mg PO QAM 04/20/25 07/25/25 History triamcinolone acetonide 0.1 % 1 applic topical BID PRN Rash 04/20/25 07/25/25 History topical ointment amlodipine 5 mg tablet 5 mg PO DAILY 07/25/25 07/25/25 History aspirin 81 mg tablet,delayed 81 mg PO DAILY 07/25/25 07/25/25 History release atorvastatin 80 mg tablet 80 mg PO DAILY 07/25/25 07/25/25 History insulin glargine-yfgn 100 unit/mL 5 unit subcut HS 07/25/25 07/25/25 History (3 mL) subcutaneous pen metoprolol tartrate 25 mg tablet 25 mg PO BID 07/25/25 07/25/25 History pantoprazole 40 mg tablet,delayed 40 mg PO DAILY 07/25/25 07/25/25 History release prednisone 10 mg tablet 10 mg PO DAILY 07/25/25 07/25/25 History dapsone 100 mg tablet 100 mg PO DAILY 07/26/25 07/26/25 History mycophenolate mofetil 500 mg tablet 500 mg PO DAILY 07/26/25 07/26/25 History Past Med/Surg History Problem List (Updated 07/26/25 @ 06:31 by Shade Mcdwoell MD) Dizziness Thrombocytopenia (Acute) Elevated troponin (Acute) Tachycardia (Acute) MAGDA (acute kidney injury) (Acute) Recurrent falls (Acute) Deep vein thrombosis (DVT) of left upper extremity (Acute) Acute idiopathic thrombocytopenic purpura (Acute) Essential hypertension Adrenal nodule Dyslipidemia Type 2 diabetes mellitus Chronic anticoagulation (Acute) Thrombocytopenia (Acute) Medical History (Updated 07/26/25 @ 06:31 by Shade Mcdowell MD) Deep vein thrombosis (DVT) of left upper extremity Atopic dermatitis Surgical History No pertinent past surgical history Social History Smoking Status: Current every day smoker Tobacco Type: Cigarettes Cigarettes Per Day: 10; Second Hand Exposure: No; Do You Dip or Chew Tobacco: No; Hx Alcohol Use: Yes Alcohol type: beer Hx Substance Use: Yes Substance Use Type Other:: 3 times per week Preferred Language: Albanian Communication Ability: Effective 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 Beliefs That Will Affect Care: None Current Living Situation: Significant Other current occupation: [employer] Other Information That Helps Us Care for You: No Feels Safe at Home: Yes Safety Concerns: Feels Safe At This Time Assistive Devices: Glasses Review of Systems Review of Systems: As per HPI, all other systems reviewed and negative Physical Exam Physical Exam: GENERAL: Comfortable, obese, irate, no respiratory distress SKIN: Pallor, warm HEENT: Pale palpebral conjunctivae, no ptosis, dry buccal mucosa NECK : Supple, no tenderness CHEST : CTA, no tenderness HEART : RRR, no obvious murmurs ABDOMEN: Some distention, nontender EXTREMITIES : Minimal LE swelling, no LE tenderness, palpable pulses, no other conspicuous deformities noted NEUROLOGIC : Coherent, no facial asymmetry, no other gross focality Results & Data Results & Data Vital Signs (Past 12 Hours) Vital Signs Temp Pulse Pulse Resp BP BP Pulse Ox 07/26/25 01:04 82 07/26/25 00:00 36.8 C 82 18 115/68 97 07/25/25 23:00 36.9 C 78 20 107/62 98 07/25/25 22:00 37.1 C 94 H 22 122/82 96 07/25/25 21:44 37 C 86 18 119/82 98 07/25/25 21:11 102 H 07/25/25 20:55 36.6 C 121 H 18 114/87 97 07/25/25 20:55 98 07/25/25 20:20 36.5 C 111 H 18 118/85 98 O2 Del Method 07/26/25 01:04 07/26/25 00:00 Room Air 07/25/25 23:00 Room Air 07/25/25 22:00 Room Air 07/25/25 21:44 Room Air 07/25/25 21:11 07/25/25 20:55 Room Air 07/25/25 20:55 Room Air 07/25/25 20:20 Room Air Laboratory Results Laboratory Results WBC 14.92 K/ul (4.8-10.8) H 07/25/25 20:36 RBC 3.43 M/uL (4.70-6.10) L 07/25/25 20:36 Hgb 8.6 g/dl (14.0-18.0) L 07/25/25 20:36 Hct 29.2 % (42.0-52.0) L 07/25/25 20:36 MCV 85.1 fL (80.0-100.0) 07/25/25 20: MCH 25.1 pg (25.0-34.0) 07/25/25 20: MCHC 29.5 g/dL (32.0-36.0) L 07/25/25 20:36 RDW Std Deviation 66.4 fL (36.4-46.3) H 07/25/25 20:36 RDW Coeff of Johnny 21.2 % (11.5-14.5) H 07/25/25 20:36 Plt Count 40 K/uL (130-400) L 07/25/25 20:36 Immature Gran % (Auto) 0.7 % 07/25/25 20:36 Neut % (Auto) 79.5 % 07/25/25 20:36 Lymph % (Auto) 9.9 % 07/25/25 20:36 Meade % (Auto) 8.8 % 07/25/25 20:36 Eos % (Auto) 0.8 % 07/25/25 20:36 Baso % (Auto) 0.3 % 07/25/25 20:36 Neut # (Auto) 11.85 K/uL (1.40-6.50) H 07/25/25 20:36 Lymph # (Auto) 1.48 K/uL (1.20-3.40) 07/25/25 20:36 Meade # (Auto) 1.32 K/uL (0.11-0.59) H 07/25/25 20:36 Eos # (Auto) 0.12 K/uL (0.00-0.50) 07/25/25 20:36 Baso # (Auto) 0.05 K/uL (0.00-0.20) 07/25/25 20:36 Immature Gran # (Auto) 0.10 K/uL (0.01-0.20) 07/25/25 20:36 Absolute Nucleated RBC 0.02 K/uL (0.00-0.12) 07/25/25 20:36 Nucleated RBC % (auto) 0.1 % 07/25/25 20:36 Polychromasia 1+ 07/25/25 20:36 Anisocytosis Present 07/25/25 20:36 Tear Drop Cells 1+ 07/25/25 20:36 PT 12.2 Seconds (9.0-12.0) H 07/25/25 20:36 INR 1.1 (0.9-1.1) 07/25/25 20:36 Sodium 138 mmol/L (136-145) 07/25/25 20:36 Potassium 4.2 mmol/L (3.5-5.1) 07/25/25 20:36 Chloride 106 mmol/L (98-107) 07/25/25 20:36 Carbon Dioxide 20 mmol/L (21-32) L 07/25/25 20:36 Anion Gap 12 (3-11) H 07/25/25 20:36 BUN 50 mg/dl (6-23) H 07/25/25 20:36 Creatinine 2.06 mg/dl (0.6-1.4) H 07/25/25 20:36 Est Cr Clr Drug Dosing Not Reportable 07/25/25 20:36 eGFR 37.11 07/25/25 20:36 BUN/Creatinine Ratio 24.3 (10-20) H 07/25/25 20:36 Glucose 166 mg/dl (70-99(Fasting)) H 07/25/25 20:36 Calcium 9.0 mg/dl (8.6-10.3) 07/25/25 20:36 Magnesium 2.2 mg/dl (1.7-2.4) 07/25/25 20:36 Total Bilirubin 0.3 mg/dl (0.2-1.0) 07/25/25 20:36 AST 15 U/L (13-39) 07/25/25 20:36 ALT 14 U/L (7-52) 07/25/25 20:36 Alkaline Phosphatase 107 U/L (34-104) H 07/25/25 20:36 Troponin I High Sens 34.1 pg/ml (0-20) H 07/25/25 22:42 Total Protein 7.5 gm/dl (6.0-8.3) 07/25/25 20:36 Albumin 4.0 gm/dl (3.4-5.0) 07/25/25 20:36 Globulin 3.5 gm/dl (2.5-4.0) 07/25/25 20:36 Albumin/Globulin Ratio 1.1 (0.9-2) 07/25/25 20:[address] 07/25/25 20:31 Exam(s): CT C SPINE EXAM: CT Cervical Spine Without Intravenous Contrast CLINICAL HISTORY: recurrent falls. TECHNIQUE: Axial computed tomography images of the cervical spine without intravenous contrast. CTDI is 26.68 mGy and DLP is 597.28 mGy-cm. Automated exposure control was utilized for the study. A dose lowering technique was utilized adhering to the principles of ALARA. COMPARISON: No relevant prior studies available. FINDINGS: Vertebrae: No acute fracture. Maintenance of height of the vertebral bodies. No subluxation. Reversal of the normal cervical lordosis. Discs/spinal canal/neural foramina: Multilevel degenerative changes, greatest between C4-5 and C6-7 with prominent posterior disc osteophytes at C4-5 and C5-6. Soft tissues: Prevertebral soft tissues are unremarkable. Enlarged uivna-eitdomf-zdru-left lobes of the thyroid gland with multiple nodules. IMPRESSION: Reversal of the normal cervical lordosis, most commonly seen with muscle spasm or positioning. Multilevel degenerative changes. Multinodular goiter. Electronically signed by: Willie Whatley M.D. 07/26/25 00:00 AM Chest X-Ray 07/25/25 20:31 Exam(s): XR CXR 1 VIEW EXAM: XR Chest, 1 View CLINICAL HISTORY: dizziness. TECHNIQUE: Frontal view of the chest. COMPARISON: No relevant prior studies available. FINDINGS: Lungs: No infiltrate. Hypoventilation with mild bibasilar atelectasis. No CHF. Pleural space: No pleural effusion. No pneumothorax. Heart: Unremarkable. No cardiomegaly. Mediastinum: Unremarkable. Normal mediastinal contour. Bones/joints: Unremarkable. No acute fracture. IMPRESSION: Hypoventilation with mild bibasilar atelectasis. Electronically signed by: Willie Whatley M.D. 07/26/25 00:[address] 07/25/25 20:31 Exam(s): CT HEAD Without Contrast EXAM: CT Head Without Intravenous Contrast CLINICAL HISTORY: recurrent falls. TECHNIQUE: Axial computed tomography images of the head/brain without intravenous contrast. CTDI is 63.46 mGy and DLP is 961.59 mGy-cm. Automated exposure control was utilized for the study. A dose lowering technique was utilized adhering to the principles of ALARA. COMPARISON: 04/21/2025. FINDINGS: Brain: Ventricles and sulci are normal in size and configuration for age. No acute stroke. No acute hemorrhage. 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 No abnormal extra-axial fluid collection. Ventricles: No hydrocephalus. No midline shift. Bones/joints: Unremarkable. No acute fracture. Soft tissues: Unremarkable. Sinuses: Unremarkable as visualized. No acute sinusitis. IMPRESSION: No acute abnormality. 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 No hydrocephalus. Electronically signed by: Willie Whatley M.D. 07/25/25 23:33 PM Diagnostic Findings EKG as per my interpretation :Rate 100, NSR, LAD, LAFB, LVH, no ischemia
[2025-07-26 03:02] LABS: Base Excess VBG -5.0 mEq/L; HCO3 VBG 21 mmol/L; Oxygen Saturation VBG < 60.0 %; PCO2 VBG 42 mmHg (38-50); PO2 VBG 37 mmHg; pH VBG 7.31 (7.36-7.41)
[2025-07-26 03:24] LABS: Anion Gap 10.0 (3-11); Blood Urea Nitrogen 50.0 mg/dl (6-23); Calcium 8.5 mg/dl (8.6-10.3); Carbon Dioxide 21.0 mmol/L (21-32); Chloride 107.0 mmol/L (98-107); Creatinine Clr Calc Pharmacy 74.0 ml/min; Glucose 141.0 mg/dl (70-99(Fasting)); Potassium 3.7 mmol/L (3.5-5.1); Sodium 138.0 mmol/L (136-145)
[2025-07-26 03:30] LABS: Anisocytosis Present; Hematocrit (blood only) 26.9 % (42.0-52.0); Hemoglobin 7.9 g/dl (14.0-18.0); Immature Granulocytes # (auto) 0.10 K/uL (0.01-0.20); Immature Granulocytes % (auto) 0.8 %; Mean Corpuscular Hemoglobin 25.0 pg (25.0-34.0); Mean Corpuscular Volume 85.1 fL (80.0-100.0); Platelet Count 35 K/uL (130-400); Polychromasia 1+; RDW Standard Deviation 65.9 fL (36.4-46.3); Red Blood Count 3.16 M/uL (4.70-6.10); Tear Drop Cells 1+; White Blood Count 12.13 K/ul (4.8-10.8)
[2025-07-26 03:47] LABS: Creatine Kinase 39.0 U/L (30-223)
[2025-07-26] MEDS: LACTATED RINGER'S 1,000 ML IV ONE ×2 (04:00→09:11)
[2025-07-26] MEDS ORDERED: CARBOHYDRATES FOR HYPOGLYCEMIA PO PRN ×2 (04:45→05:18)
[2025-07-26] MEDS ORDERED: DEXTROSE 50% 50 ML SYRINGE IV PRN ×2 (04:45→05:18)
[2025-07-26] MEDS ORDERED: GLUCOSE 40% GEL 15 GM TUBE PO PRN ×2 (04:45→05:18)
[2025-07-26] MEDS ORDERED: GLUCOSE 10 TAB/TUBE PO PRN ×2 (04:45→05:18)
[2025-07-26] MEDS ORDERED: GLUCAGON FOR INJ 1 MG VIAL SQ PRN ×2 (04:45→05:18)
[2025-07-26] MEDS: INSULIN ASPART PER UNIT CHARGE SC SCH (05:46)
[2025-07-26] MEDS: MYCOPHENOLATE MOFETIL 250 MG CAP PO SCH (08:30)
[2025-07-26] MEDS: ASPIRIN 81 MG ECTAB PO SCH (08:31)
[2025-07-26] MEDS: DAPSONE 25 MG TAB PO SCH (08:31)
[2025-07-26] MEDS: ATORVASTATIN 40 MG TAB PO SCH (08:31)
[2025-07-26 08:42] LABS: Hematocrit (blood only) 25.1 % (42.0-52.0); Hemoglobin 7.8 g/dl (14.0-18.0)
[2025-07-26] MEDS: APIXABAN 5 MG TABLET PO SCH (08:53)
[2025-07-26] MEDS: METOPROLOL TARTRATE 25 MG TAB PO SCH (08:54)
[2025-07-26 08:56] LABS: Anion Gap 10.0 (3-11); Blood Urea Nitrogen 46.0 mg/dl (6-23); Calcium 8.6 mg/dl (8.6-10.3); Carbon Dioxide 21.0 mmol/L (21-32); Chloride 108.0 mmol/L (98-107); Creatinine Clr Calc Pharmacy 94.5 ml/min; Glucose 95.0 mg/dl (70-99(Fasting)); Potassium 3.5 mmol/L (3.5-5.1); Sodium 139.0 mmol/L (136-145)
--- NOTE | 2025-07-26 12:18 | Electrocardiogram Report ---
Test Reason : Blood Pressure : */* mmHG Vent. Rate : 97 BPM Atrial Rate : 97 BPM P-R Int : 134 ms QRS Dur : 80 ms QT Int : 346 ms P-R-T Axes : 59 -8 35 degrees QTcB Int : 439 ms Normal sinus rhythm Minimal voltage criteria for LVH, may be normal variant ( R in aVL ) Borderline ECG When compared with ECG of 22-Apr-2025 10:34, QRS duration has decreased T wave inversion no longer evident in Inferior leads T wave inversion no longer evident in Lateral leads Confirmed by Sajan Arredondo ([id number]) on 07/26/2025 12:18:32 PM Referred By: Edenilson Roldan Confirmed By: Sajan Arredondo
[2025-07-26 13:43] LABS: Appearance Urine Clear (Clear); Bacteria Urine Automated None Seen (None Seen); Epithelial Cell Urine Auto 0-2 /hpf (0-2); Glucose Urine UA Negative (Negative); WBC Urine Automated 0-5 /hpf (0-5)
--- NOTE | 2025-07-26 14:08 | Communication Note ---
Date of Service: July 26, 2025 Patient was seen and examined at bedside for acute kidney injury, dizziness secondary to orthostatic hypotension. Continue with IV fluid, orthostatic vitals were positive at presentation, gradually improving. Patient advised to slowly transition during change in position. Continue to hold amlodipine and losartan for now. His baseline hemoglobin around 8-9, repeat hemoglobin 7.8 today. Monitor H&H closely, get FOBT. Acute kidney injury has resolved with IV fluid administration. Platelet slightly down trended, monitor platelets this a.m., consider hematology evaluation due to platelet downtrend and need for anticoagulation. Patient at bedside and her sister over the phone were updated regarding plan of care, patient agreed to stay overnight to monitor his platelets. For detailed information on the patient, refer to today's H&P note.
[2025-07-26] MEDS: LANTUS PER UNIT CHARGE SQ SCH (20:27)
[2025-07-27] MEDS: POLYETHYLENE (MIRALAX) 17 GM PACK PO SCH (07:59)
[2025-07-27] MEDS: [UNRECOGNIZED DRUG - OTHER] PO SCH (08:03)
[2025-07-27] MEDS: ACETAMINOPHEN 500 MG TAB PO PRN (08:07)
[2025-07-27 08:28] LABS: Anion Gap 10.0 (3-11); Blood Urea Nitrogen 32.0 mg/dl (6-23); Calcium 9.1 mg/dl (8.6-10.3); Carbon Dioxide 22.0 mmol/L (21-32); Chloride 106.0 mmol/L (98-107); Creatinine Clr Calc Pharmacy 111.2 ml/min; Glucose 172.0 mg/dl (70-99(Fasting)); Magnesium 1.8 mg/dl (1.7-2.4); Potassium 3.8 mmol/L (3.5-5.1); Sodium 138.0 mmol/L (136-145)
[2025-07-27 08:33] LABS: Hematocrit (blood only) 25.3 % (42.0-52.0); Hemoglobin 7.6 g/dl (14.0-18.0); Mean Corpuscular Hemoglobin 24.8 pg (25.0-34.0); Mean Corpuscular Volume 82.4 fL (80.0-100.0); Platelet Count 49 K/uL (130-400); RDW Standard Deviation 61.2 fL (36.4-46.3); Red Blood Count 3.07 M/uL (4.70-6.10); White Blood Count 11.11 K/ul (4.8-10.8)
[2025-07-27 08:34] LABS: Immature Granulocytes # (auto) 0.08 K/uL (0.01-0.20); Immature Granulocytes % (auto) 0.7 %; Polychromasia 1+; Tear Drop Cells 1+
[2025-07-27 11:04] VITALS: BP 147/102; RESP 18; TEMP 98.4; O2SAT 95
--- NOTE | 2025-07-27 13:06 | Hospitalist Progress Note ---
Date of Service July 27, 2025 Assessment & Plan (1) Dizziness: Plan: Assessment and plan below following discussion of case with ED provider and reviewing patient history/pertinent normal/abnormal diagnostic test results. Dizziness likely secondary to orthostasis Orthostatic vitals noted to be positive at the ER. 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 He is platelet was 40 on 07/25/2025 and today it has gone up to 49 Awaiting ticket agent evaluation for continuation of anticoagulation with low platelet DVT status post IVC on Eliquis ARF, possible hypovolemia Admission creatinine was 2.06 and there was likely the cause for dizziness Received intravenous fluid and was advised to drink more fluid Creatinine has been normalized Hypertension Hold amlodipine and losartan for now His medications to control high blood pressure will be restarted on discharge Hyperlipidemia, statin Rx hx CVA Traumatic subdural hematoma DM 2 insulin requiring, suboptimal control as of recent hemoglobin A1c of 7.5 last March 2025 Basal bolus insulin, ISS BG goal 110-140, carb con coverage Chronic anemia, hemoglobin at baseline, patient denies overt bleeding Past tobacco abuse DVT prophylaxis. Duable Chinesequis Full code Text document was generated using [employer] voice recognition software. It may contain grammatical or spelling errors. Kindly contact undersigned for clarification of any documentation item in question. Admission and Anticipated Discharge Date Admission Date: July 26, 2025 Subjective The patient was seen and examined in medical telemetry unit He has been stable and denies any more dizziness even with ambulation Wondering when he can be discharged Denies any other significant symptoms Review of Systems Review of Systems: All systems reviewed and are unremarkable except as noted below Physical Exam Physical Exam: Sitting at the edge of the bed without any acute distress Constitutional: well developed, well nourished, + ill appearing and + obese Eyes: PERRL, conjunctivae normal, anicteric sclerae ENMT: external ear and nose normal, oropharynx normal Neck: trachea midline, no thyromegaly Respiratory: no respiratory distress Auscultation: lungs clear to auscultation bilaterally Cardiovascular: Rate/Rhythm: regular rate and regular rhythm; not tachycardic Heart Sounds: normal S1 and normal S2; no murmur Extremities: + edema (Trace edema bilaterally) Gastrointestinal (Abdomen): Inspection/Auscultation: normal bowel sounds; abdomen not distended Percussion/Palpation: abdomen soft; abdomen nontender Musculoskeletal: No acute arthritis involving any of the joint Neurologic: normal touch/pain/proprioception and moves all extremities; no focal motor deficits Lymphatic: no cervical or axillary lymphadenopathy Results & Data Results & Data Vital Signs (Past 12 Hours) Vital Signs Temp Pulse Pulse Resp BP Pulse Ox O2 Del Method 07/27/25 11:03 36.9 C 95 H 18 147/102 H 95 Room Air 07/27/25 10:03 Room Air 07/27/25 08:13 37.1 C 132 H 20 135/103 H 96 Room Air 07/27/25 07:00 121 H Laboratory Results Short CBC 07/27/25 Range/Units 07:58 WBC 11.11 H (4.8-10.8) K/ul Hgb 7.6 L (14.0-18.0) g/dl Hct 25.3 L (42.0-52.0) % Plt Count 49 L (130-400) K/uL BMP 07/27/25 07:58 Sodium 138 Potassium 3.8 Chloride 106 Carbon Dioxide 22 BUN 32 H Creatinine 1.12 Glucose 172 H Calcium 9.1 Urine 07/26/25 Range/Units Unknown Urine Color Yellow Urine Appearance Clear (Clear) Urine pH 5.0 (4.5-7.5) Ur Specific [place] 1.023 (1.000-1.030) Urine Protein 1+ H (Negative) Urine Glucose (UA) Negative (Negative) Medications Administered Current Inpatient Medications Acetaminophen (Acetaminophen 500 Mg Tab) 1,000 mg PO Q8H PRN PRN Reason: Pain or Fever Stop: 08/26/25 07:56 Last Admin: 07/27/25 08:07 Dose: 1,000 mg Apixaban (Apixaban 5 Mg Tablet) 5 mg PO BID [facility] Stop: 08/25/25 08:59 Last Admin: 07/27/25 08:01 Dose: 5 mg Aspirin (Aspirin 81 Mg Ectab) 81 mg PO DAILY [facility] Stop: 08/25/25 08:59 Last Admin: 07/27/25 08:02 Dose: 81 mg Atorvastatin Calcium (Atorvastatin 40 Mg Tab) 80 mg PO DAILY [facility] Stop: 08/25/25 08:59 Last Admin: 07/27/25 08:02 Dose: 80 mg Avatrombopag (Avatrombopag Maleate 20 Mg Tab) 20 mg PO MoWeFr@0900 [facility] Stop: 08/26/25 08:59 Last Admin: 07/27/25 08:03 Dose: 20 mg Dapsone (Dapsone 25 Mg Tab) 100 mg PO DAILY [facility] Stop: 08/25/25 08:59 Last Admin: 07/27/25 08:00 Dose: 100 mg Dextrose (Dextrose 50% 50 Ml Syringe) 25 - 50 ml IV UD PRN; Protocol PRN Reason: Hypoglycemia Protocol Stop: 08/25/25 05:17 Glucagon (Glucagon For Inj 1 Mg Vial) 1 mg SQ UD PRN; Protocol PRN Reason: Hypoglycemia Protocol Stop: 08/25/25 05:17 Glucose (Glucose 40% Gel 15 Gm Tube) 15 - 30 gm PO UD PRN; Protocol PRN Reason: Hypoglycemia Protocol Stop: 08/25/25 05:17 Glucose (Glucose 10 Tab/Tube) 4 - 8 tab PO UD PRN; Protocol PRN Reason: Hypoglycemia Protocol Stop: 08/25/25 05:17 Insulin Aspart (Insulin Aspart Per Unit Charge) 0 units SC ACHS [facility]ST Stop: 08/25/25 05:17 Last Admin: 07/27/25 12:44 Dose: 2 units Insulin Glargine (Lantus Per Unit Charge) 5 units SQ HS [facility] Stop: 08/25/25 20:59 Last Admin: 07/26/25 20:29 Dose: Not Given Metoprolol Tartrate (Metoprolol Tartrate 25 Mg Tab) 25 mg PO BID [facility] Stop: 08/25/25 08:59 Last Admin: 07/27/25 08:01 Dose: 25 mg Miscellaneous (Carbohydrates For Hypoglycemia ) 15 - 30 gm PO UD PRN PRN Reason: Hypoglycemia Protocol Stop: 08/25/25 05:17 Mycophenolate Mofetil (Mycophenolate Mofetil 250 Mg Cap) 500 mg PO DAILY [facility] Stop: 08/25/25 08:59 Last Admin: 07/27/25 08:00 Dose: 500 mg Pantoprazole Sodium (Pantoprazole 40 Mg Tab) 40 mg PO DAILY [facility] Stop: 08/25/25 08:59 Last Admin: 07/27/25 08:01 Dose: 40 mg Polyethylene Glycol (Polyethylene (Miralax) 17 Gm Pack) 17 gm PO DAILY [facility] Stop: 08/26/25 08:59 Last Admin: 07/27/25 07:59 Dose: 17 gm Prednisone (Prednisone 10 Mg Tablet) 10 mg PO DAILY [facility] Stop: 08/25/25 08:59 Last Admin: 07/27/25 08:01 Dose: 10 mg
[2025-07-27 14:50] VITALS: PULSE 121
--- NOTE | 2025-07-27 18:18 | Discharge Summary ---
Date of Service July 27, 2025 Admission HPI Per Admitting Provider History obtained from patient and records. Medical history significant for hypertension, hyperlipidemia, CVA, traumatic subdural hematoma, chronic anemia (baseline hemoglobin 8-9), ITP currently on CellCept, dapsone, outpatient Doptelet, ongoing steroid taper; DVT status post IVC on Eliquis, history chronic left IJ thrombus, DM 2 insulin requiring, Klinefelter syndrome as per records, history of thyroid nodules, bilateral adrenal nodules as per records, past tobacco abuse. Prolonged [facility] confinement April 23 to July 13, 2025 following [facility] transfer. Patient admitted for refractory ITP. Hospital stay complicated by multiple DVTs status post IVC filter placement, subacute stroke, subdural hematoma, NSTEMI, and hospital-acquired pneumonia. Patient with dizzy spells the last few days. No headache symptoms. Denies chest pain, SOB, abdominal pain. No obvious bleeding. Compliant with home medications. Denies flulike symptoms. Appetite okay. Patient directed to ER by outpatient provider. Medical History as above Surgical History : IVC filter, epistaxis procedure Family History : MS Personal/Social history : Past tobacco abuse, occasional EtOH intake, [employer] Admission Exam Per Admitting Provider Physical Exam: GENERAL: Comfortable, obese, irate, no respiratory distress SKIN: Pallor, warm HEENT: Pale palpebral conjunctivae, no ptosis, dry buccal mucosa NECK : Supple, no tenderness CHEST : CTA, no tenderness HEART : RRR, no obvious murmurs ABDOMEN: Some distention, nontender EXTREMITIES : Minimal LE swelling, no LE tenderness, palpable pulses, no other conspicuous deformities noted NEUROLOGIC : Coherent, no facial asymmetry, no other gross focality Principal Diagnosis Dizziness,ITP Discharge Exam Sitting at the edge of the bed without any acute distress Constitutional well developed, well nourished, + ill appearing and + obese Eyes PERRL, conjunctivae normal, anicteric sclerae ENMT external ear and nose normal, oropharynx normal Neck trachea midline, no thyromegaly Respiratory no respiratory distress Auscultation: lungs clear to auscultation bilaterally Cardiovascular Rate/Rhythm: regular rate and regular rhythm; not tachycardic Heart Sounds: normal S1 and normal S2; no murmur Extremities: + edema (Trace edema bilaterally) Gastrointestinal (Abdomen) Inspection/Auscultation: normal bowel sounds; abdomen not distended Percussion/Palpation: abdomen soft; abdomen nontender Neurologic normal touch/pain/proprioception and moves all extremities; no focal motor deficits Lymphatic no cervical or axillary lymphadenopathy Discharge Data Allergies Allergy/AdvReac Type Severity Reaction Status Date / Time pollen extracts Allergy Intermediate ITCHY Verified 07/25/25 21:33 EYES, SNEEZING varenicline [From Chantix] AdvReac Intermediate Insomnia Verified 07/25/25 21:33 Consultations 07/26/25 01:06 ED Decision to Admit Stat Ordered Studies 07/25/25 20:31 CT cervical spine wo con Stat CT head/brain wo con Stat Hospital Course (1) Dizziness: Assessment and plan below following discussion of case with ED provider and reviewing patient history/pertinent normal/abnormal diagnostic test results. Dizziness likely secondary to orthostasis Orthostatic vitals noted to be positive at the ER. 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 He is platelet was 40 on 07/25/2025 and today it has gone up to 49 Awaiting purse framer evaluation for continuation of anticoagulation with low platelet DVT status post IVC on Eliquis ARF, possible hypovolemia Admission creatinine was 2.06 and there was likely the cause for dizziness Received intravenous fluid and was advised to drink more fluid Creatinine has been normalized Hypertension Hold amlodipine and losartan for now His medications to control high blood pressure will be restarted on discharge Hyperlipidemia, statin Rx hx CVA Traumatic subdural hematoma DM 2 insulin requiring, suboptimal control as of recent hemoglobin A1c of 7.5 last March 2025 Basal bolus insulin, ISS BG goal 110-140, carb con coverage Chronic anemia, hemoglobin at baseline, patient denies overt bleeding Past tobacco abuse DVT prophylaxis. Eliquis Full code Text document was generated using [employer] voice recognition software. It may contain grammatical or spelling errors. Kindly contact undersigned for clarification of any documentation item in question. Total Time Total Time Spent Total Time Spent (In Minutes): 35 Minutes Discharge Plan Discharge Items Patient Disposition: Home - Self-Care Reason For Visit: DIZZINESS, RENAL FAILURE Discharge Diagnosis: Dizziness,ITP Condition on Discharge: Fair Activity: Resume your previous activity Non-emergency contact: Primary Care Provider Call non-emergency contact if: you have any medication questions and your symptoms worsen Follow-up/Referrals: Edenilson Roldan MD [Primary Care Provider] - (Date & Time 08/02/2025 11:20 AM Provider: Edenilson Roldan MD [facility] ) Indira Farrar MD [Hospitalist] - (Date & Time 08/10/2025 8:30 AM Provider: Indiar Farrar MD Hematology/Oncology [facility] ) Diet: Carb Consistent or DM2 and Heart Healthy Addtl Attending Provider Instructions: Please take precautions to avoid falls Do not do any strenuous activities Take your medications as advised and avoid any NSAIDs for pain Please keep appointments with a healthcare provider Pending Studies at Discharge: No Stand-Alone Forms: My [facility] [employer], Smoking Cessation Medications and DC Order Prescriptions: Continued atorvastatin 80 mg tablet 80 mg PO DAILY prednisone 10 mg tablet 10 mg PO DAILY Rx Instructions: PER PT "ONLY HAVE 1 MORE WEEK UNTIL IT ENDS". amlodipine 5 mg tablet 5 mg PO DAILY aspirin 81 mg Tablet,Delayed Release (Dr/Ec) 81 mg PO DAILY pantoprazole 40 mg tablet,delayed release (DR/EC) 40 mg PO DAILY insulin glargine-yfgn 100 unit/mL (3 mL) insulin pen 5 unit SUBCUT HS metoprolol tartrate 25 mg tablet 25 mg PO BID mycophenolate mofetil 500 mg tablet 500 mg PO DAILY dapsone 100 mg tablet 100 mg PO DAILY Doptelet (30 tab pack) 20 mg tablet 20 mg PO UD Rx Instructions: 3x wk (MWF) Eliquis 5 mg tablet 5 mg PO BID Hold Instructions: ITP fluocinonide 0.05 % cream 1 applic TOPICAL DAILY losartan 100 mg tablet 100 mg PO QAM triamcinolone acetonide 0.1 % ointment 1 applic TOPICAL BID PRN (Reason: Rash) Rx Instructions: apply 2 times a day to rash on trunk/arms/legs Discharge Orders: Discharge Order (Routine); Ordered 07/27/25 Ordered By: Collins Gurrola Admission Data Admit Date/Time: 07/26/25 02:30 Attending Provider: Collins Gurrola Admit Provider: Shade Mcdowell Primary Care Provider: Edenilson Roldan Other Providers: Shade Mcdowell; Edwin Patel Other Interventions: Discharge Summary Assessment (RN) Last Done: 07/27/25 14:49
== END 2025-07-27 17:09 | disposition home or self-care (01) ==
LOC: 2N 20:17 → ED 20:17 → SUATTDRO 07-26 02:30 → 2N 07-26 04:53

== ENCOUNTER 2025-07-30 22:53 | Inpatient (IN) ==
[2025-07-31 00:34] LABS: Hematocrit (blood only) 25.4 % (42.0-52.0); Hemoglobin 7.6 g/dl (14.0-18.0); Mean Corpuscular Hemoglobin 24.8 pg (25.0-34.0); Mean Corpuscular Volume 82.7 fL (80.0-100.0); Platelet Count 128 K/uL (130-400); RDW Standard Deviation 63.4 fL (36.4-46.3); Red Blood Count 3.07 M/uL (4.70-6.10); White Blood Count 18.13 K/ul (4.8-10.8)
[2025-07-31 00:44] LABS: INR 1.1 (0.9-1.1); Partial Thromboplastin Time 23 Seconds (21-31); Prothrombin Time 11.6 Seconds (9.0-12.0)
[2025-07-31 00:50] LABS: Anisocytosis Present; Immature Granulocytes # (auto) 0.29 K/uL (0.01-0.20); Immature Granulocytes % (auto) 1.6 %; Polychromasia 1+
[2025-07-31 00:56] LABS: Alanine Aminotransferase 12 U/L (7-52); Albumin Globulin Ratio 1.0 (0.9-2); Albumin Level 3.8 gm/dl (3.4-5.0); Alkaline Phosphatase 107 U/L (34-104); Anion Gap 11 (3-11); Bilirubin,Total 0.8 mg/dl (0.2-1.0); Blood Urea Nitrogen 38 mg/dl (6-23); Calcium 8.9 mg/dl (8.6-10.3); Carbon Dioxide 22 mmol/L (21-32); Chloride 102 mmol/L (98-107); Globulin 3.7 gm/dl (2.5-4.0); Glucose 144 mg/dl (70-99(Fasting)); Potassium 4.1 mmol/L (3.5-5.1); Sodium 135 mmol/L (136-145); Total Protein 7.5 gm/dl (6.0-8.3)
--- NOTE | 2025-07-31 01:20 | Emergency Department Note ---
History of Present Illness General Chief Complaint: Cardiac Assessment Stated Complaint: LEGS SWELLING, DIZZINESS, SOB, CHEST PAINS Time Seen by Provider: 07/31/25 00:08 History of Present Illness Provider Complaint: shortness of breath Onset (ago): day(s) (2) Consistency/Duration: + progressively worsening Maximum Pain Intensity: 9 Relieved By: + upright position Exacerbated By: + lying flat and + exertion Associated symptoms: + orthopnea and + lower extremity pain (Bilateral lower extremity swelling); no chest pain, no fever, no cough, no sputum production, no nausea/vomiting or no abdominal pain Treatment prior to arrival: none Home Medications Medication Instructions Recorded Confirmed Type apixaban 5 mg tablet (Eliquis) 5 mg PO BID 04/20/25 07/25/25 History fluocinonide 0.05 % topical cream 1 applic topical DAILY 04/20/25 07/25/25 History losartan 100 mg tablet 100 mg PO QAM 04/20/25 07/25/25 History triamcinolone acetonide 0.1 % 1 applic topical BID PRN Rash 04/20/25 07/25/25 History topical ointment amlodipine 5 mg tablet 5 mg PO DAILY 07/25/25 07/25/25 History aspirin 81 mg tablet,delayed 81 mg PO DAILY 07/25/25 07/25/25 History release atorvastatin 80 mg tablet 80 mg PO DAILY 07/25/25 07/25/25 History insulin glargine-yfgn 100 unit/mL 5 unit subcut HS 07/25/25 07/25/25 History (3 mL) subcutaneous pen metoprolol tartrate 25 mg tablet 25 mg PO BID 07/25/25 07/25/25 History pantoprazole 40 mg tablet,delayed 40 mg PO DAILY 07/25/25 07/25/25 History release prednisone 10 mg tablet 10 mg PO DAILY 07/25/25 07/25/25 History avatrombopag 20 mg tablet 20 mg PO UD 07/26/25 07/26/25 History (Doptelet (30 tab pack)) dapsone 100 mg tablet 100 mg PO DAILY 07/26/25 07/26/25 History mycophenolate mofetil 500 mg tablet 500 mg PO DAILY 07/26/25 07/26/25 History Allergies Allergy/AdvReac Type Severity Reaction Status Date / Time pollen extracts Allergy Intermediate ITCHY Verified 07/25/25 21:33 EYES, SNEEZING varenicline [From Chantix] AdvReac Intermediate Insomnia Verified 07/25/25 21:33 Past Med/Surg History Problem List (Updated 07/31/25 @ 01:20 by Geovani Resendiz MD) Dizziness Thrombocytopenia (Acute) Elevated troponin (Acute) Tachycardia (Acute) MAGDA (acute kidney injury) (Acute) Recurrent falls (Acute) Deep vein thrombosis (DVT) of left upper extremity (Acute) Acute idiopathic thrombocytopenic purpura (Acute) Essential hypertension Adrenal nodule Dyslipidemia Type 2 diabetes mellitus Chronic anticoagulation (Acute) Thrombocytopenia (Acute) Medical History Deep vein thrombosis (DVT) of left upper extremity Atopic dermatitis Surgical History No pertinent past surgical history Social History Smoking Status: Never smoker Tobacco Type: Cigarettes Cigarettes Per Day: 10; Second Hand Exposure: No; Do You Dip or Chew Tobacco: No; Hx Alcohol Use: Yes Alcohol type: beer Hx Substance Use: Yes Substance Use Type Other:: 3 times per week Preferred Language: Polish Communication Ability: Effective Digital Forensic Analyst Required: No Beliefs That Will Affect Care: None Current Living Situation: Significant Other current occupation: [employer] Feels Safe at Home: Yes Assistive Devices: None Physical Exam 2 Vital Signs: Vital Signs - 24 hr 07/30/25 22:56 07/30/25 23:00 07/31/25 01:10 Temperature 36 C L Temperature Source Temporal Artery Sc an Pulse Rate 120 H Respiratory Rate 18 Blood Pressure 101/67 Blood Pressure Elizabeth n 78 Pulse Oximetry 96 Oxygen Delivery Me thod Room Air Room Air Room Air Oxygen Flow Rate 96 Sepsis Recent Feve r Within 48 Hours No Sepsis New/Unexpla ined Change in Men daksha Status No Sepsis Action Take n by Nursing No Action Required Physical Exam: Physical Exam GENERAL: oriented to person, place, and time. appears well-developed and well- nourished. HENT: Exam performed. - Head: Normocephalic and atraumatic. EYES: Conjunctivae and EOM are normal. Right eye exhibits no discharge. Left eye exhibits no discharge. No scleral icterus. NECK: Normal range of motion. Neck supple. No JVD present. CV: Normal rate, regular rhythm, normal heart sounds and intact distal pulses. 2+ pitting edema of the bilateral lower extremities. Palpable radial pulses bue. PULM/CHEST: Effort normal and breath sounds normal. No respiratory distress. No stridor. no wheezes. no rales. ABD: The abdomen is soft. There is no tenderness. NEURO: Motor and sensation grossly intact. SKIN: Skin is warm and dry. He is not diaphoretic. PSYCH: normal mood and affect. Behavior is normal. Judgment and thought content normal. Course Course 0008: The patient was evaluated in room D4A. A complete history and physical exam was performed Cardiac monitoring: An order was placed for continuous cardiac monitoring. The monitor shows a rate of 110 with sinus tachycardia rhythm interpreted by me 0116: Vital signs stable. Labs show leukocytosis of 18. Hemoglobin 7.6, at baseline. Patient's creatinine is back up to 1.93. At time of discharge the patient's creatinine was 1.12. High-sensitivity troponin is elevated. Patient is on Eliquis. No chest pain patient is currently reporting. High sensitive troponin 34.2. Patient will be admitted to the [facility] Medical Decision Making Laboratory Data Attestation: I reviewed the patient's lab results. 07/31/25 00:21 07/31/25 00:21 Lab Results 07/31/25 Range/Units 00:21 WBC 18.13 H (4.8-10.8) K/ul RBC 3.07 L (4.70-6.10) M/uL Hgb 7.6 L (14.0-18.0) g/dl Hct 25.4 L (42.0-52.0) % MCV 82.7 (80.0-100.0) fL MCH 24.8 L (25.0-34.0) pg MCHC 29.9 L (32.0-36.0) g/dL RDW Std Deviation 63.4 H (36.4-46.3) fL RDW Coeff of Johnny 20.8 H (11.5-14.5) % Plt Count 128 L (130-400) K/uL MPV 11.2 (9.4-12.4) fL Immature Gran % (Auto) 1.6 % Neut % (Auto) 78.4 % Lymph % (Auto) 6.7 % Clay % (Auto) 12.4 % Eos % (Auto) 0.6 % Baso % (Auto) 0.3 % Neut # (Auto) 14.23 H (1.40-6.50) K/uL Lymph # (Auto) 1.22 (1.20-3.40) K/uL Clay # (Auto) 2.24 H (0.11-0.59) K/uL Eos # (Auto) 0.10 (0.00-0.50) K/uL Baso # (Auto) 0.05 (0.00-0.20) K/uL Immature Gran # (Auto) 0.29 H (0.01-0.20) K/uL Absolute Nucleated RBC 0.13 H (0.00-0.12) K/uL Nucleated RBC % (auto) 0.7 % Polychromasia 1+ Anisocytosis Present PT 11.6 (9.0-12.0) Seconds INR 1.1 (0.9-1.1) APTT 23 (21-31) Seconds PTT Ratio 0.9 Sodium 135 L (136-145) mmol/L Potassium 4.1 (3.5-5.1) mmol/L Chloride 102 (98-107) mmol/L Carbon Dioxide 22 (21-32) mmol/L Anion Gap 11 (3-11) BUN 38 H (6-23) mg/dl Creatinine 1.93 H (0.6-1.4) mg/dl Est Cr Clr Drug Dosing Not Reportable eGFR 40.13 BUN/Creatinine Ratio 19.7 (10-20) Glucose 144 H (70-99(Fasting)) mg/dl Calcium 8.9 (8.6-10.3) mg/dl Total Bilirubin 0.8 (0.2-1.0) mg/dl AST 14 (13-39) U/L ALT 12 (7-52) U/L Alkaline Phosphatase 107 H (34-104) U/L Troponin I High Sens 34.2 H (0-20) pg/ml B-Natriuretic Peptide 13 (0-100) pg/ml Total Protein 7.5 (6.0-8.3) gm/dl Albumin 3.8 (3.4-5.0) gm/dl Globulin 3.7 (2.5-4.0) gm/dl Albumin/Globulin Ratio 1.0 (0.9-2) Imaging Data Attestation: I personally reviewed and interpreted this imaging study as follows: My Impression: Chest x-ray negative. Airway clear. No pneumothorax. No consolidation. No cardiomegaly or cephalization.. No free air under the diaphragm. No fractures of the skeletal structures. ECG Data Attestation: I personally reviewed and interpreted this ECG as follows: Interpretation: Sinus tachycardia with a rate of 114. FL QRS and QTc intervals within normal limits. No ST elevation or ST depression. [facility] Narrative 0008: The patient was evaluated in room D4A. A complete history and physical exam was performed Cardiac monitoring: An order was placed for continuous cardiac monitoring. The monitor shows a rate of 110 with sinus tachycardia rhythm interpreted by me 0116: Vital signs stable. Labs show leukocytosis of 18. Hemoglobin 7.6, at baseline. Patient's creatinine is back up to 1.93. At time of discharge the patient's creatinine was 1.12. High-sensitivity troponin is elevated. Patient is on Eliquis. No chest pain patient is currently reporting. High sensitive troponin 34.2. Patient will be admitted to the [facility] team Impression & Plan MAGDA (acute kidney injury) Discharge Plan Visit Data Chief Complaint: Cardiac Assessment Stated Complaint: LEGS SWELLING, DIZZINESS, SOB, CHEST PAINS ED Provider: Geovani Resendiz Discharge Problem: MAGDA (acute kidney injury) Patient Disposition: Admitted As Inpatient Condition: Fair Forms Stand Alone Forms: My [facility] Prescriptions Prescriptions: No Action atorvastatin 80 mg tablet 80 mg PO DAILY prednisone 10 mg tablet 10 mg PO DAILY Rx Instructions: PER PT "ONLY HAVE 1 MORE WEEK UNTIL IT ENDS". amlodipine 5 mg tablet 5 mg PO DAILY aspirin 81 mg Tablet,Delayed Release (Dr/Ec) 81 mg PO DAILY pantoprazole 40 mg tablet,delayed release (DR/EC) 40 mg PO DAILY insulin glargine-yfgn 100 unit/mL (3 mL) insulin pen 5 unit SUBCUT HS metoprolol tartrate 25 mg tablet 25 mg PO BID mycophenolate mofetil 500 mg tablet 500 mg PO DAILY dapsone 100 mg tablet 100 mg PO DAILY Doptelet (30 tab pack) 20 mg tablet 20 mg PO UD Rx Instructions: 3x wk (MWF) Eliquis 5 mg tablet 5 mg PO BID Hold Instructions: ITP fluocinonide 0.05 % cream 1 applic TOPICAL DAILY losartan 100 mg tablet 100 mg PO QAM triamcinolone acetonide 0.1 % ointment 1 applic TOPICAL BID PRN (Reason: Rash) Rx Instructions: apply 2 times a day to rash on trunk/arms/legs Referrals Referrals: Edenilson Roldan MD [Primary Care Provider] -
--- NOTE | 2025-07-31 01:25 | XRay Report ---
Exam(s): XR CXR 1 VIEW EXAM: XR Chest, 1 View CLINICAL HISTORY: Reason for exam: Chest pain, nonspecific. TECHNIQUE: Frontal view of the chest. COMPARISON: No relevant prior studies available. FINDINGS: Lungs: Unremarkable. No acute infiltration, atelectasis or mass. Pleural space: Unremarkable. No pneumothorax or pleural fluid. Heart: Unremarkable. No cardiomegaly. Mediastinum: Unremarkable. Normal mediastinal contour. Bones/joints: No acute findings. IMPRESSION: No acute findings in the chest. Electronically signed by: Antwan Thompson MD 07/31/25 01:24 AM
[2025-07-31] MEDS: FUROSEMIDE INJ 20 MG/2 ML VIAL IV ONE (02:31)
--- NOTE | 2025-07-31 05:24 | History & Physical Report ---
Date of Service July 31, 2025 Assessment & Plan (1) SILVA (dyspnea on exertion): Plan: 55-year-old male with past medical significant for type 2 diabetes, dyslipidemia, history of ITP, atopic dermatitis, tobacco use disorder, CVA, traumatic subdural hematoma, chronic anemia baseline hemoglobin 8-9, DVT status post IVC filter, on Eliquis, history of chronic left IJ thrombus, Klinefelter syndrome, bilateral adrenal nodules, thyroid nodules who was recently in the hospital for dizziness thought to be orthostatic and MAGDA thought to be from hypovolemia got discharged on 07/27/2025 comes back because of edema in lower extremities and pain in the lower extremities and also dyspnea on exertion. Patient denies any chest pain. Denies any headache. No blurred vision. No runny nose or sore throat. No cough. No nausea. No abdominal pain. Normal bowel and bladder movements. Denies any blood in the stools. In April patient was transferred from [facility] to [facility] for refractory ITP to IVIG and steroids and had a prolonged hospital stay until July 13, 2025. His hospital stay was complicated by multiple DVTs status post IVC filter placement because of low platelets and also ischemic stroke and subdural hematoma, non-ST left ND, hospital-acquired pneumonia and incidentally on bone marrow biopsy also found to have Klinefelter syndrome. During the stay in [facility] he also required multiple blood transfusions secondary to recurrent severe epistaxis also developed submucosal hematomas and necrotic tongue hematoma secondary to severe thrombocytopenia which is resolved. Dyspnea on exertion EKG okay Chest x-ray okay Initial troponin 34 and repeat is 33 Will monitor on telemetry Serial cardiac enzymes and echo Consult cardiology for further recommendations Bilateral lower extremity edema Tenderness History of DVT status post IVC filter and also on Eliquis Will check Dopplers Give a dose of IV Lasix 20 mg MAGDA Creatinine 1.9 Baseline creatinine around 1 Will follow repeat labs Will follow CT abdomen pelvis Diabetes Continue home long-acting insulin Sliding scale Monitor Tachycardia IV Lopressor 2.5 mg Continue home metoprolol tartrate Will monitor Hypertension Holding losartan for MAGDA Continue amlodipine and metoprolol's tartrate Amlodipine could be contributing to the lower EXTR edema We will monitor GERD On Protonix History of DVT Status post IVC filter On Eliquis History of CVA On aspirin and statin and Eliquis History of ITP On CellCept, dapsone and Doptelet Ongoing steroid taper currently on prednisone 10 mg daily Platelets 128 today Chronic anemia Hemoglobin 7.6 today hemoglobin was 7.6 on 07/2425 Will follow labs DVT prophylaxis Eliquis Disposition Med/telemetry Full code History of Present Illness Chief Complaint: Dyspnea on exertion and lower extremity edema Primary Care Provider: Edenilson Roldan MD 55-year-old male with past medical significant for type 2 diabetes, dyslipidemia, history of ITP, atopic dermatitis, tobacco use disorder, CVA, traumatic subdural hematoma, chronic anemia baseline hemoglobin 8-9, DVT status post IVC filter, on Eliquis, history of chronic left IJ thrombus, Klinefelter syndrome, bilateral adrenal nodules, thyroid nodules who was recently in the hospital for dizziness thought to be orthostatic and MAGDA thought to be from hypovolemia got discharged on 07/27/2025 comes back because of edema in lower extremities and pain in the lower extremities and also dyspnea on exertion. Patient denies any chest pain. Denies any headache. No blurred vision. No runny nose or sore throat. No cough. No nausea. No abdominal pain. Normal bowel and bladder movements. Denies any blood in the stools. In April patient was transferred from [facility] to [facility] for refractory ITP to IVIG and steroids and had a prolonged hospital stay until July 13, 2025. His hospital stay was complicated by multiple DVTs status post IVC filter placement because of low platelets and also ischemic stroke and subdural hematoma, non-ST left ND, hospital-acquired pneumonia and incidentally on bone marrow biopsy also found to have Klinefelter syndrome. During the stay in [facility] he also required multiple blood transfusions secondary to recurrent severe epistaxis also developed submucosal hematomas and necrotic tongue hematoma secondary to severe thrombocytopenia which is resolved. Past medical history. As mentioned above Past surgical history. IVC filter placement. Epistaxis procedure. Social history. Past tobacco use. Alcohol occasional. No drug use. Family history significant for maternal grand mother had cancer. Sister has MS. Allergies Allergy/AdvReac Type Severity Reaction Status Date / Time pollen extracts Allergy Intermediate ITCHY Verified 07/25/25 21:33 EYES, SNEEZING varenicline [From Chantix] AdvReac Intermediate Insomnia Verified 07/25/25 21:33 Home Medications Medication Instructions Recorded Confirmed Type amlodipine 5 mg tablet 5 mg PO DAILY 07/31/25 07/31/25 History apixaban 5 mg tablet (Eliquis) 5 mg PO BID 07/31/25 07/31/25 History aspirin 81 mg tablet,delayed 81 mg PO DAILY 07/31/25 07/31/25 History release atorvastatin 80 mg tablet 80 mg PO DAILY 07/31/25 07/31/25 History avatrombopag 20 mg tablet 20 mg PO UD 07/31/25 07/31/25 History (Doptelet (30 tab pack)) dapsone 100 mg tablet 100 mg PO DAILY 07/31/25 07/31/25 History fluocinonide 0.05 % topical cream 1 applic topical DAILY 07/31/25 07/31/25 Hist ory losartan 100 mg tablet 100 mg PO DAILY 07/31/25 07/31/25 History metoprolol tartrate 25 mg tablet 25 mg PO BID 07/31/25 07/31/25 History mycophenolate mofetil 500 mg tablet 500 mg PO DAILY 07/31/25 07/31/25 History pantoprazole 40 mg tablet,delayed 40 mg PO DAILY 07/31/25 07/31/25 History release Past Med/Surg History Problem List (Updated 07/31/25 @ 05:18 by Mario Stout MD) SILVA (dyspnea on exertion) Dizziness Thrombocytopenia (Acute) Elevated troponin (Acute) Tachycardia (Acute) MAGDA (acute kidney injury) (Acute) Recurrent falls (Acute) Deep vein thrombosis (DVT) of left upper extremity (Acute) Acute idiopathic thrombocytopenic purpura (Acute) Essential hypertension Adrenal nodule Dyslipidemia Type 2 diabetes mellitus Chronic anticoagulation (Acute) Thrombocytopenia (Acute) Medical History Deep vein thrombosis (DVT) of left upper extremity Atopic dermatitis Surgical History No pertinent past surgical history Social History Smoking Status: Never smoker Tobacco Type: Cigarettes Cigarettes Per Day: 10; Second Hand Exposure: No; Do You Dip or Chew Tobacco: No; Hx Alcohol Use: Yes Alcohol type: beer Hx Substance Use: Yes Substance Use Type Other:: 3 times per week Preferred Language: Azerbaijani Communication Ability: Effective X Ray Equipment Servicer Required: No Beliefs That Will Affect Care: None Current Living Situation: Significant Other current occupation: [employer] Feels Safe at Home: Yes Assistive Devices: None Review of Systems Review of Systems: All systems reviewed & are unremarkable except as noted in HPI & below Physical Exam Physical Exam: General- Not in distress Head- atraumatic Eyes- PERRL,. ENT- oropharynx clear Neck- supple, no JVD. Lungs- clear to auscultation no wheezing or crackles Heart- regular rate and rhythm; no murmur, no gallop. Abdomen- normal bowel sounds, soft, nontender, no distension Extremities- b/l lower extremity edema present, calf tenderness present , no erythema seen Neuro- alert, oriented PERRL, no facial palsy; no dysarthria; moves extremities Results & Data Results & Data Vital Signs (Past 12 Hours) Vital Signs Temp Pulse Pulse Resp BP BP Pulse Ox 07/31/25 01:34 115 H 07/31/25 01:10 07/31/25 00:54 117 H 17 123/88 93 07/30/25 23:00 07/30/25 22:56 36 C L 120 H 18 101/67 96 O2 Del Method O2 Flow Rate 07/31/25 01:34 07/31/25 01:10 Room Air 96 07/31/25 00:54 Room Air 07/30/25 23:00 Room Air 07/30/25 22:56 Room Air Diagnostic Findings Laboratory Results WBC 18.13 K/ul (4.8-10.8) H 07/31/25 00:21 RBC 3.07 M/uL (4.70-6.10) L 07/31/25 00:21 Hgb 7.6 g/dl (14.0-18.0) L 07/31/25 00:21 Hct 25.4 % (42.0-52.0) L 07/31/25 00:21 MCV 82.7 fL (80.0-100.0) 07/31/25 00:21 MCH 24.8 pg (25.0-34.0) L 07/31/25 00:21 MCHC 29.9 g/dL (32.0-36.0) L 07/31/25 00:21 RDW Std Deviation 63.4 fL (36.4-46.3) H 07/31/25 00:21 RDW Coeff of Johnny 20.8 % (11.5-14.5) H 07/31/25 00:21 Plt Count 128 K/uL (130-400) L 07/31/25 00:21 MPV 11.2 fL (9.4-12.4) 07/31/25 00:21 Immature Gran % (Auto) 1.6 % 07/31/25 00:21 Neut % (Auto) 78.4 % 07/31/25 00:21 Lymph % (Auto) 6.7 % 07/31/25 00:21 Braxton % (Auto) 12.4 % 07/31/25 00:21 Eos % (Auto) 0.6 % 07/31/25 00:21 Baso % (Auto) 0.3 % 07/31/25 00:21 Neut # (Auto) 14.23 K/uL (1.40-6.50) H 07/31/25 00:21 Lymph # (Auto) 1.22 K/uL (1.20-3.40) 07/31/25 00:21 Braxton # (Auto) 2.24 K/uL (0.11-0.59) H 07/31/25 00:21 Eos # (Auto) 0.10 K/uL (0.00-0.50) 07/31/25 00:21 Baso # (Auto) 0.05 K/uL (0.00-0.20) 07/31/25 00:21 Immature Gran # (Auto) 0.29 K/uL (0.01-0.20) H 07/31/25 00:21 Absolute Nucleated RBC 0.13 K/uL (0.00-0.12) H 07/31/25 00:21 Nucleated RBC % (auto) 0.7 % 07/31/25 00:21 Polychromasia 1+ 07/31/25 00:21 Anisocytosis Present 07/31/25 00:21 PT 11.6 Seconds (9.0-12.0) 07/31/25 00:21 INR 1.1 (0.9-1.1) 07/31/25 00:21 APTT 23 Seconds (21-31) 07/31/25 00:21 PTT Ratio 0.9 07/31/25 00:21 Sodium 135 mmol/L (136-145) L 07/31/25 00:21 Potassium 4.1 mmol/L (3.5-5.1) 07/31/25 00:21 Chloride 102 mmol/L (98-107) 07/31/25 00:21 Carbon Dioxide 22 mmol/L (21-32) 07/31/25 00:21 Anion Gap 11 (3-11) 07/31/25 00:21 BUN 38 mg/dl (6-23) H 07/31/25 00:21 Creatinine 1.93 mg/dl (0.6-1.4) H 07/31/25 00:21 Est Cr Clr Drug Dosing Not Reportable 07/31/25 00:21 eGFR 40.13 07/31/25 00:21 BUN/Creatinine Ratio 19.7 (10-20) 07/31/25 00:21 Glucose 144 mg/dl (70-99(Fasting)) H 07/31/25 00:21 Calcium 8.9 mg/dl (8.6-10.3) 07/31/25 00:21 Total Bilirubin 0.8 mg/dl (0.2-1.0) 07/31/25 00:21 AST 14 U/L (13-39) 07/31/25 00:21 ALT 12 U/L (7-52) 07/31/25 00:21 Alkaline Phosphatase 107 U/L (34-104) H 07/31/25 00:21 Troponin I High Sens 33.8 pg/ml (0-20) H 07/31/25 02:22 B-Natriuretic Peptide 13 pg/ml (0-100) 07/31/25 00:21 Total Protein 7.5 gm/dl (6.0-8.3) 07/31/25 00:21 Albumin 3.8 gm/dl (3.4-5.0) 07/31/25 00:21 Globulin 3.7 gm/dl (2.5-4.0) 07/31/25 00:21 Albumin/Globulin Ratio 1.0 (0.9-2) 07/31/25 00:21 Impressions Chest X-Ray 07/30/25 23:00 Exam(s): XR CXR 1 VIEW EXAM: XR Chest, 1 View CLINICAL HISTORY: Reason for exam: Chest pain, nonspecific. TECHNIQUE: Frontal view of the chest. COMPARISON: No relevant prior studies available. FINDINGS: Lungs: Unremarkable. No acute infiltration, atelectasis or mass. Pleural space: Unremarkable. No pneumothorax or pleural fluid. Heart: Unremarkable. No cardiomegaly. Mediastinum: Unremarkable. Normal mediastinal contour. Bones/joints: No acute findings. IMPRESSION: No acute findings in the chest. Electronically signed by: Antwan Thompson MD 07/31/25 01:24 AM ECG Additional Comments: EKG. Sinus tachycardia rate of 114. Nonspecific T wave abnormality in inferior leads. QTc 465. Code Status & VTE Plan VTE Prophylaxis Plan VTE Prophylaxis will be ordered: Yes
[2025-07-31] MEDS: METOPROLOL TARTRATE 1 MG/ML VIAL IV STA ×2 (05:26→20:02)
--- NOTE | 2025-07-31 06:44 | Electrocardiogram Report ---
Test Reason : Blood Pressure : */* mmHG Vent. Rate : 127 BPM Atrial Rate : 127 BPM P-R Int : 122 ms QRS Dur : 82 ms QT Int : 324 ms P-R-T Axes : 64 -16 40 degrees QTcB Int : 470 ms Sinus tachycardia Minimal voltage criteria for LVH, may be normal variant ( R in aVL ) Borderline ECG When compared with ECG of 31-Jul-2025 00:23, Nonspecific T wave abnormality, improved in Inferior leads Confirmed by Clarence Fontenot ([id number]) on 07/31/2025 6:44:23 AM Referred By: REFERRED SELF Confirmed By: Clarence Fontenot
--- NOTE | 2025-07-31 06:44 | Electrocardiogram Report ---
Test Reason : Blood Pressure : */* mmHG Vent. Rate : 114 BPM Atrial Rate : 114 BPM P-R Int : 126 ms QRS Dur : 84 ms QT Int : 338 ms P-R-T Axes : -24 -15 -21 degrees QTcB Int : 465 ms Sinus tachycardia Otherwise normal ECG When compared with ECG of 25-Jul-2025 21:11, Nonspecific T wave abnormality now evident in Inferior leads Confirmed by Clarence Fontenot ([id number]) on 07/31/2025 6:44:02 AM Referred By: REFERRED SELF Confirmed By: Clarence Fontenot
--- NOTE | 2025-07-31 07:08 | CT Scan Report ---
EXAM: CT abd pelvis wo con CLINICAL HISTORY: kisha, lower ext edema TECHNIQUE: Contiguous axial images were obtained from the level of the diaphragm to the pubic symphysis without intravenous or oral contrast. Coronal and sagittal reconstructions were likewise performed and indicated to increase the sensitivity for detecting clinically relevant pathology. CT scan was performed according to ALARA (as low as reasonable achievable). COMPARISON: 04/21/2025 13:20:46 SYSTEM DEVELOPMENT MANAGER. FINDINGS: The visualized lung bases are clear. Evaluation of the abdominal and pelvic visceral organs is limited without intravenous contrast. The unenhanced liver, spleen, pancreas, and adrenal glands are grossly unremarkable. The gallbladder is present. The kidneys are normal in size and attenuation without obvious calcification. There is no hydronephrosis or perinephric stranding. The ureters are normal in caliber. No adenopathy or fluid collections are seen. No evidence of focal or diffuse bowel wall thickening or evidence of bowel obstruction is seen. The appendix is visualized in the right lower quadrant and appears within normal limits. The aorta is normal in caliber. IVC filter is seen in situ. The iliac veins are distended and show mild retroperitoneal fat stranding The urinary bladder is partially distended. No aggressive appearing osseous lesions are identified. IMPRESSION: 1. IVC filter insitu with distended iliac veins with retroperitoneal fat stranding- raising the possibility of thrombus - new finding. Advise contrast enhanced CT for further evaluation. Electronically signed by Abdi Pascual 07-31-2025 07:08 AM
[2025-07-31] MEDS ORDERED: GLUCOSE 40% GEL 15 GM TUBE PO PRN (08:10)
[2025-07-31] MEDS ORDERED: ACETAMINOPHEN 325 MG TAB PO PRN (08:10)
[2025-07-31] MEDS ORDERED: DEXTROSE 50% 50 ML SYRINGE IV PRN (08:10)
[2025-07-31] MEDS ORDERED: GLUCOSE 10 TAB/TUBE PO PRN (08:10)
[2025-07-31] MEDS ORDERED: NITROGLYCERIN SL 0.4 MG/TAB TAB SL PRN (08:10)
[2025-07-31] MEDS ORDERED: POLYETHYLENE (MIRALAX) 17 GM PACK PO PRN (08:10)
[2025-07-31] MEDS ORDERED: CARBOHYDRATES FOR HYPOGLYCEMIA PO PRN (08:10)
[2025-07-31] MEDS ORDERED: GLUCAGON FOR INJ 1 MG VIAL SQ PRN (08:10)
[2025-07-31 08:55] LABS: Hematocrit (blood only) 24.8 % (42.0-52.0); Hemoglobin 7.4 g/dl (14.0-18.0); Immature Granulocytes # (auto) 0.19 K/uL (0.01-0.20); Immature Granulocytes % (auto) 1.2 %; Mean Corpuscular Hemoglobin 24.3 pg (25.0-34.0); Mean Corpuscular Volume 81.6 fL (80.0-100.0); Platelet Count 131 K/uL (130-400); RDW Standard Deviation 62.2 fL (36.4-46.3); Red Blood Count 3.04 M/uL (4.70-6.10); White Blood Count 15.67 K/ul (4.8-10.8)
[2025-07-31 09:16] LABS: Anion Gap 11.0 (3-11); Blood Urea Nitrogen 38.0 mg/dl (6-23); Calcium 8.8 mg/dl (8.6-10.3); Carbon Dioxide 22.0 mmol/L (21-32); Chloride 103.0 mmol/L (98-107); Creatinine Clr Calc Pharmacy 63.6 ml/min; Glucose 137.0 mg/dl (70-99(Fasting)); Magnesium 2.0 mg/dl (1.7-2.4); Potassium 3.8 mmol/L (3.5-5.1); Sodium 136.0 mmol/L (136-145)
[2025-07-31 09:28] LABS: Anisocytosis Present; Ovalocytes 1+; Polychromasia 1+; Tear Drop Cells 1+
--- NOTE | 2025-07-31 09:36 | Ultrasound Report ---
EXAM: US Duplex Bilateral Lower Extremities Veins INDICATION: Swelling TECHNIQUE: Real-time duplex ultrasound scan of the bilateral lower extremity veins integrating B-mode two-dimensional vascular structure, Doppler spectral analysis, color flow Doppler imaging and compression. COMPARISON: No relevant prior studies available. FINDINGS: Right deep veins: Occlusive thrombus from the groin to the knee including the common femoral, deep, femoral and popliteal veins. Poorly evaluated deep Veins. Right superficial veins: Greater saphenous vein occluded. Left deep veins: Occlusive thrombus from the groin to the knee including the common femoral, deep, femoral and popliteal veins. Poorly evaluated deep Veins. Left superficial veins: Greater saphenous vein occluded. Soft tissues: No abnormality noted. IMPRESSION: 1. Bilateral occlusive deep venous thrombosis from each groin to each knee. Poorly evaluated deep veins of each calf. 2. Bilateral greater saphenous vein thrombosis. ACT 112: N/A Electronically signed by Nuvia Preciado 07-31-2025 09:36 AM
[2025-07-31] MEDS: INSULIN ASPART PER UNIT CHARGE SC SCH (09:39)
[2025-07-31 09:52] LABS: Hemoglobin A1C 5.9 % (4.5-5.6)
[2025-07-31] MEDS: APIXABAN 5 MG TABLET PO SCH (10:12)
[2025-07-31] MEDS: METOPROLOL TARTRATE 25 MG TAB PO SCH (10:12)
[2025-07-31] MEDS: ATORVASTATIN 40 MG TAB PO SCH (10:12)
[2025-07-31] MEDS: ASPIRIN 81 MG ECTAB PO SCH (10:14)
[2025-07-31] MEDS: DAPSONE 25 MG TAB PO SCH (10:15)
[2025-07-31] MEDS: MYCOPHENOLATE MOFETIL 250 MG CAP PO SCH (10:15)
--- NOTE | 2025-07-31 11:30 | Communication Note ---
Date of Service: July 31, 2025 55 years old with significant past medical history of ITP, and history of DVT on Eliquis. He was admitted with increasing swelling of the legs and exertional shortness of breath for the last day or 2. He mentioned that he has been taking Eliquis regularly and with food sometime and sometimes without food. He remains hemodynamically stable and has been requiring 2 L to maintain saturation but not short of breath at rest. He was noted to have extensive bilateral DVT and cannot rule out any pulmonary embolism due to MAGDA and failure of worsening renal function but he has a [place] filter in situ. Discussed with the patient in detail and also his girlfriend and started on intravenous heparin for extensive bilateral DVTs. Pros and cons of heparin explained and he will be given oral anticoagulation down the line. Full progress note will be done tomorrow. DR Danielle monetrroso
[2025-07-31] MEDS ORDERED: Heparin IV Adult Wt-Based Low-Dose w/ INITIAL Bolus Protocol IV STA (11:32)
[2025-07-31] MEDS ORDERED: HEPARIN SOD (PORCINE) 1000 UNIT/ML IV ONE (11:35)
[2025-07-31] MEDS ORDERED: HEPARIN 25000 UNIT/500 ML D5W 25,000 UNITS/500 ML BAG IV SCH (11:45)
[2025-07-31] MEDS: HEPARIN SOD (PORCINE) 1000 UNIT/ML IV ONE (11:48)
[2025-07-31] MEDS: HEPARIN 25000 UNIT/500 ML D5W 25,000 UNITS/500 ML BAG IV SCH (11:49)
--- NOTE | 2025-07-31 14:07 | XCELERA ---
[id number]
--- NOTE | 2025-07-31 14:31 | Cardiology Consultation ---
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 Echo with normal LVEF, no significant valvular disease. - edema likely worsened due to extensive b/l LE DVT- initially diagnosed on duplex 06/2025 at [facility] - given high clot burden possible PE with SILVA, unable to perform CTA due to MAGDA, could consider V/Q scan if indicated - has been switched to heparin gtt, transition to Eliquis PO once appropriate, continue to monitor hemoglobin, platelets - telemetry with sinus tachycardia, continue metoprolol tartrate, titrate dose for heart rate control - continue to monitor on telemetry - continue amlodipine, aspirin, atorvastatin Case discussed with attending physician, further recommendations per Dr. Cagle. I spent a total of 40 minutes on the date of service in preparation, delivery, and documentation of the care provided to this patient excluding any time spent in the performance of separately billed services. This visit was a split-shared visit with the substantial portion of the decision making performed by the supervising strategic partner development manager/billing provider. PAVAN Grimm Card[facility] Supervising Physician Co-Signing Physician Notes Patient seen and examined. Past medical history, surgical history, social history and family history have been reviewed. The medical record and all the above studies have been reviewed. Case DW KEVIN including management. ECHO 07/31/25 Interpretation Summary The study was technically difficult. Left ventricular systolic function is normal. Left Ventricular Ejection Fraction = 60-65%. Grade I diastolic dysfunction, (abnormal relaxation pattern). Mild pulmonic valvular regurgitation. SILVA DVT Lower extremity edema MAGDA (acute kidney injury) Sinus tachycardia - secondary to underlying condition(s) Consider VQ scan continue metoprolol, statin, ASA transition to Eliquis correct and f/u electrolytes f/u renal function f/u CBC adjust anti-HTN meds keeping systolic BP between 100-140 mmHg avoid hypovolemia keep patient euvolemic History of Present Illness Reason for Consultation: Hospitalist Requesting Physician: SILVA, lower extremity edema Attending Physician: Collins Gurrola MD History of Present Illness 55 year old male with past medical history of HTN, DM 2, anemia, recent prolonged hospitalization at [facility] 04/23-07/13/25 with 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 States symptoms have been present since leaving the hospital at [facility]. Gets short of breath when walking short distances. Denies chest pain. On arrival, BP 101/67. EKG with sinus tachycardia, 110 bpm. Cardiology consulted due to SILVA and edema. On exam today, he is resting in bed, laying flat. Denies chest pain, palpitations, lightheadedness. Notes edema is better, but still present, feels that his thighs are swollen. Has lower extremity pain, worse in groin area. Has been compliant with all medications at home, has not missed any doses of Eliquis. Denies abnormal bleeding. Denies tobacco, alcohol, illicit drug use. Allergies Allergy/AdvReac Type Severity Reaction Status Date / Time pollen extracts Allergy Intermediate ITCHY Verified 07/25/25 21:33 EYES, SNEEZING varenicline [From Chantix] AdvReac Intermediate Insomnia Verified 07/25/25 21:33 Home Medications Medication Instructions Recorded Confirmed Type amlodipine 5 mg tablet 5 mg PO DAILY 07/31/25 07/31/25 History apixaban 5 mg tablet (Eliquis) 5 mg PO BID 07/31/25 07/31/25 History aspirin 81 mg tablet,delayed 81 mg PO DAILY 07/31/25 07/31/25 History release atorvastatin 80 mg tablet 80 mg PO DAILY 07/31/25 07/31/25 History avatrombopag 20 mg tablet 20 mg PO UD 07/31/25 07/31/25 History (Doptelet (30 tab pack)) dapsone 100 mg tablet 100 mg PO DAILY 07/31/25 07/31/25 History fluocinonide 0.05 % topical cream 1 applic topical DAILY 07/31/25 07/31/25 History losartan 100 mg tablet 100 mg PO DAILY 07/31/25 07/31/25 History metoprolol tartrate 25 mg tablet 25 mg PO BID 07/31/25 07/31/25 History mycophenolate mofetil 500 mg tablet 500 mg PO DAILY 07/31/25 07/31/25 History pantoprazole 40 mg tablet,delayed 40 mg PO DAILY 07/31/25 07/31/25 History release Patient History Medical History Deep vein thrombosis (DVT) of left upper extremity Atopic dermatitis Surgical History No pertinent past surgical history Social History Smoking Status: Never smoker Tobacco Type: Cigarettes Cigarettes Per Day: 10; Second Hand Exposure: No; Do You Dip or Chew Tobacco: No; Hx Alcohol Use: Yes Alcohol type: beer Hx Substance Use: Yes Substance Use Type Other:: 3 times per week Preferred Language: Spanish Communication Ability: Effective Workforce Development Assistant Required: No Beliefs That Will Affect Care: None Current Living Situation: Significant Other current occupation: [employer] Feels Safe at Home: Yes Assistive Devices: None Review of Systems Review of Systems: CONSTITUTIONAL: No change in weight, No weakness, No fatigue and No fevers, No sweats or chills. PULMONARY: No cough, sputum, or hemoptysis, No wheezing, No shortness of breath and No recent change in breathing. CARDIOVASCULAR: No chest pain, + dyspnea on exertion, + edema, No palpitations and No syncope. GASTROINTESTINAL: No abdominal pain, No change in bowel habits, No significant heartburn, No nausea, No vomiting, No diarrhea, No constipation, No blood in stools or black tarry stools. No dysphagia. HEMATOLOGIC: No abnormal bleeding and No bruising. NEUROLOGICAL: Normal balance, No headaches and No weakness. Physical Exam Physical Exam: General: No acute distress. A+Ox3. HEENT: Normocephalic. Atraumatic. PERRL. EOMI. Conjunctiva and sclera clear. NECK: No carotid bruits. No JVD. Carotid upstrokes are brisk. Heart: RRR S1 and S2 noted. No murmur. No rubs or gallops. PMI non displaced. Lungs: Clear to auscultation. No wheezes. No rhonchi. No rales. Abdomen: Normal bowel sounds. Soft. Nontender. No masses or organomegaly. No abdominal bruits. Extremities: 1+ BLE edema. No clubbing or cyanosis. Pulses: radial=2/4, posterior tibial=2/4, dorsalis pedis = 2/4. NEURO: No focal deficits. PSYCH: Appropriate affect and insight. Results & Data Vital Signs (Past 12 Hours) Vital Signs Pulse Pulse Resp BP BP Pulse Ox Pulse Ox 07/31/25 13:50 112 H 20 120/74 96 07/31/25 10:00 116 H 20 109/84 99 07/31/25 10:00 99 07/31/25 08:00 110 H 20 91/64 L 97 07/31/25 07:08 113 H 07/31/25 06:44 96 07/31/25 06:43 88 L 07/31/25 05:52 115 H 116/87 07/31/25 04:00 128 H 18 111/80 98 07/31/25 03:42 123 H 19 97/59 L 94 O2 Del Method O2 Del Method O2 Flow Rate O2 Flow Rate 07/31/25 13:50 Nasal Cannula 2 07/31/25 10:00 Nasal Cannula 2 07/31/25 10:00 Nasal Cannula 2 07/31/25 08:00 Nasal Cannula 2 07/31/25 07:08 07/31/25 06:44 Nasal Cannula 2 07/31/25 06:43 Room Air 0 07/31/25 05:52 07/31/25 04:00 Room Air 07/31/25 03:42 Room Air Laboratory Results Cardiac Enzymes 07/31/25 07/31/25 07/31/25 Range/Units 00:21 02:22 08:40 AST 14 (13-39) U/L Troponin I High Sens 34.2 H 33.8 H 31.6 H (0-20) pg/ml B-Natriuretic Peptide 13 (0-100) pg/ml Coagulation 07/31/25 Range/Units 00:21 PT 11.6 (9.0-12.0) Seconds APTT 23 (21-31) Seconds B-Natriuretic Peptide 13 (0-100) pg/ml CBC 07/31/25 07/31/25 Range/Units 00:21 08:40 WBC 18.13 H 15.67 H (4.8-10.8) K/ul RBC 3.07 L 3.04 L (4.70-6.10) M/uL Hgb 7.6 L 7.4 L (14.0-18.0) g/dl Hct 25.4 L 24.8 L (42.0-52.0) % Plt Count 128 L 131 (130-400) K/uL Neut # (Auto) 14.23 H 12.37 H (1.40-6.50) K/uL Lymph # (Auto) 1.22 0.95 L (1.20-3.40) K/uL Hendricks # (Auto) 2.24 H 2.01 H (0.11-0.59) K/uL Eos # (Auto) 0.10 0.11 (0.00-0.50) K/uL Baso # (Auto) 0.05 0.04 (0.00-0.20) K/uL Comprehensive Metabolic Panel 07/31/25 07/31/25 Range/Units 00:21 08:40 Sodium 135 L 136 (136-145) mmol/L Potassium 4.1 3.8 (3.5-5.1) mmol/L Chloride 102 103 (98-107) mmol/L Carbon Dioxide 22 22 (21-32) mmol/L BUN 38 H 38 H (6-23) mg/dl Creatinine 1.93 H 1.90 H (0.6-1.4) mg/dl Glucose 144 H 137 H (70-99(Fasting)) mg/dl Calcium 8.9 8.8 (8.6-10.3) mg/dl AST 14 (13-39) U/L ALT 12 (7-52) U/L Alkaline Phosphatase 107 H (34-104) U/L Total Protein 7.5 (6.0-8.3) gm/dl Albumin 3.8 (3.4-5.0) gm/dl Intake and Output 07/30/25 07/31/25 07/31/25 22:59 06:59 14:59 Other: Weight 142.6 kg Weight Measurement Method Built in [facility] Diagnostic Findings Echo 07/31/25: LVEF 60-65%, grade I diastolic dysfunction PG Care Time/CCT Total # of Minutes Spent Total Time Spent with Patient: Total time spent is greater than 50% in coordination of care (as documented) at patient's floor/unit and/or counseling patient: [place] [address] IN/OBS CONSULT LVL 5,80M Patient Type New Medical Decision Making High Complexity Diagnoses SILVA (dyspnea on exertion) R06.09 Chronic deep vein thrombosis (DVT) of both lower extremities, unspecified vein I82.503 Affected thrombotic vein of extremity: unspecified vein of extremity Chronicity: chronic DVT location: lower extremity Laterality: bilateral Lower extremity edema R60.0 MAGDA (acute kidney injury) N17.9 Tachycardia R00.0 (2) DVT (deep venous thrombosis) Affected thrombotic vein of extremity: unspecified vein of extremity Chronicity: chronic DVT location: lower extremity Laterality: bilateral Qualified Code(s): I82.503 - Chronic embolism and thrombosis of unspecified deep veins of lower extremity, bilateral
[2025-07-31] MEDS: Heparin IV Adult Wt-Based Standard w/ INITIAL Bolus Protocol IV STA (16:40)
[2025-07-31] MEDS: HYDROmorphone INJ 0.5 MG/0.5 ML SYR IV STA (20:04)
[2025-07-31 20:17] LABS: ANTI-Xa, UFH(UnfractionatedHep 0.81 IU/ml (0.3-0.7)
[2025-07-31] MEDS: SODIUM CHLORIDE 0.9% 250 ML IV ONE (20:18)
--- NOTE | 2025-07-31 20:47 | Electrocardiogram Report ---
Test Reason : Blood Pressure : */* mmHG Vent. Rate : 110 BPM Atrial Rate : 110 BPM P-R Int : 128 ms QRS Dur : 84 ms QT Int : 340 ms P-R-T Axes : 72 16 51 degrees QTcB Int : 460 ms Sinus tachycardia Otherwise normal ECG When compared with ECG of 31-Jul-2025 04:14, No significant change was found Confirmed by Clarence Fontenot ([id number]) on 07/31/2025 8:47:17 PM Referred By: REFERRED SELF Confirmed By: Clarence Fontenot
[2025-07-31] MEDS: LANTUS PER UNIT CHARGE SC SCH (22:46)
[2025-07-31 23:40] LABS: ANTI-Xa, UFH(UnfractionatedHep 0.60 IU/ml (0.3-0.7)
--- NOTE | 2025-08-01 00:01 | Ultrasound Report ---
Exam(s): US ARTERIAL BILATERAL LOWER EXTREMITIES EXAM: US Duplex Bilateral Lower Extremities Arteries CLINICAL HISTORY: Reason for exam: b/l lower ext pain. extensive dvt. pvd?. TECHNIQUE: Real-time duplex ultrasound scan of the bilateral lower extremity arteries integrating B-mode two-dimensional vascular structure, Doppler spectral analysis and color flow Doppler imaging. COMPARISON: None FINDINGS: Right common femoral artery: No acute findings. No occlusion or significant stenosis on color flow and spectral Doppler imaging. Normal waveform. Right superficial femoral artery: No acute findings. No occlusion or significant stenosis on color flow and spectral Doppler imaging. Normal waveform. Right popliteal artery: No acute findings. No occlusion or significant stenosis on color flow and spectral Doppler imaging. Normal waveform. Right calf/foot arteries: No acute findings. No occlusion or significant stenosis on color flow and spectral Doppler imaging. Normal waveform. Left common femoral artery: No acute findings. No occlusion or significant stenosis on color flow and spectral Doppler imaging. Normal waveform. Left superficial femoral artery: No acute findings. No occlusion or significant stenosis on color flow and spectral Doppler imaging. Normal waveform. Left popliteal artery: No acute findings. No occlusion or significant stenosis on color flow and spectral Doppler imaging. Normal waveform. Left calf/foot arteries: No acute findings. No occlusion or significant stenosis on color flow and spectral Doppler imaging. Normal waveform. Soft tissues: Unremarkable. IMPRESSION: No hemodynamically significant stenosis or occlusion in either lower extremity. Electronically signed by: Omari Jones M.D. 08/01/25 00:00 AM
[2025-08-01] MEDS: ACETAMINOPHEN 500 MG TAB PO PRN (06:24)
[2025-08-01 07:11] LABS: Hematocrit (blood only) 22.9 % (42.0-52.0); Hemoglobin 6.9 g/dl (14.0-18.0); Mean Corpuscular Hemoglobin 24.2 pg (25.0-34.0); Mean Corpuscular Volume 80.4 fL (80.0-100.0); Platelet Count 196 K/uL (130-400); RDW Standard Deviation 62.2 fL (36.4-46.3); Red Blood Count 2.85 M/uL (4.70-6.10); White Blood Count 15.27 K/ul (4.8-10.8)
[2025-08-01] MEDS ORDERED: SODIUM CHLORIDE 0.9% 100 ML IV PRN (07:26)
[2025-08-01 07:36] LABS: Acanthocytes 1+; Immature Granulocytes # (auto) 0.18 K/uL (0.01-0.20); Immature Granulocytes % (auto) 1.2 %; Ovalocytes 1+; Polychromasia 1+; Tear Drop Cells 1+
[2025-08-01 07:40] LABS: Anion Gap 12.0 (3-11); Blood Urea Nitrogen 36.0 mg/dl (6-23); Calcium 8.8 mg/dl (8.6-10.3); Carbon Dioxide 22.0 mmol/L (21-32); Chloride 101.0 mmol/L (98-107); Creatinine Clr Calc Pharmacy 68.6 ml/min; Glucose 140.0 mg/dl (70-99(Fasting)); Magnesium 2.1 mg/dl (1.7-2.4); Potassium 3.8 mmol/L (3.5-5.1); Sodium 135.0 mmol/L (136-145)
[2025-08-01 07:44] LABS: ANTI-Xa, UFH(UnfractionatedHep 0.42 IU/ml (0.3-0.7)
[2025-08-01] MEDS: [UNRECOGNIZED DRUG - OTHER] PO SCH (10:28)
--- NOTE | 2025-08-01 10:45 | Hospitalist Progress Note ---
Date of Service August 01, 2025 Assessment & Plan (1) SILVA (dyspnea on exertion): Plan: 55-year-old male with past medical significant for type 2 diabetes, dyslipidemia, history of ITP, atopic dermatitis, tobacco use disorder, CVA, traumatic subdural hematoma, chronic anemia baseline hemoglobin 8-9, DVT status post IVC filter, on Eliquis, history of chronic left IJ thrombus, Klinefelter syndrome, bilateral adrenal nodules, thyroid nodules who was recently in the hospital for dizziness thought to be orthostatic and MAGDA thought to be from hypovolemia got discharged on 07/27/2025 comes back because of edema in lower extremities and pain in the lower extremities and also dyspnea on exertion. Patient denies any chest pain. Denies any headache. No blurred vision. No runny nose or sore throat. No cough. No nausea. No abdominal pain. Normal bowel and bladder movements. Denies any blood in the stools. In April patient was transferred from [facility] to [facility] for refractory ITP to IVIG and steroids and had a prolonged hospital stay until July 13, 2025. His hospital stay was complicated by multiple DVTs status post IVC filter placement because of low platelets and also ischemic stroke and subdural hematoma, non-ST left NH, hospital-acquired pneumonia and incidentally on bone marrow biopsy also found to have Klinefelter syndrome. During the stay in [facility] he also required multiple blood transfusions secondary to recurrent severe epistaxis also developed submucosal hematomas and necrotic tongue hematoma secondary to severe thrombocytopenia which is resolved. Dyspnea on exertion No significant EKG changes and chest x-ray findings Serial troponins are unremarkable Echo of the heart showedstudy was technically difficult, LV systolic function is normal, LVEF 60 to 65%, grade 1 diastolic dysfunction and mild pulmonic valvular regurgitation Denies any more pain and has been requiring 2 L to maintain saturation Appreciate cardiology input and recommendation Has had significant tachycardia seems to be resolved Will get CTA to rule out pulmonary embolism as the creatinine has been improving History of DVT status post IVC filter and also on Eliquis Bilateral lower extremity edema-Worsening Lower extremity ultrasound showed extensive DVT involving the superficial and deep veins---- he mentioned that he has been taking Eliquis regularly. Not sure if the extensive DVTs secondary to Eliquis failure are not. Will discuss with the film writer. Tenderness is due to superficial phlebitis Edema could be in part due to clot burden Doubt any acute [facility] MAGDA Creatinine 1.9 Baseline creatinine around 1 Will follow repeat labs Will follow CT abdomen pelvis- noted Creatinine shows mild improvement with GFR more than 40 Will give cautious amount of IV fluid with the use of contrast History of ITP On CellCept, dapsone and Doptelet Ongoing steroid taper currently on prednisone 10 mg daily Platelets 128 today Chronic anemia Hemoglobin 7.6 today Hemoglobin was 7.6 on 07/2425 Hemoglobin dropped down to 6.9 today and he will receive 1 unit of blood transfusion Diabetes Continue home long-acting insulin Sliding scale Monitor Tachycardia IV Lopressor 2.5 mg Continue home metoprolol tartrate Tachycardia is resolved and will get CTA to rule out pulmonary embolism Hypertension Holding losartan for MAGDA Continue amlodipine and metoprolol's tartrate Amlodipine could be contributing to the lower EXTR edema We will monitor GERD On Protonix History of DVT Status post IVC filter On Eliquis History of CVA On aspirin and statin and Eliquis DVT prophylaxis IV Heparin for now Disposition Med/telemetry Full code Admission and Anticipated Discharge Date Admission Date: July 31, 2025 Subjective 08/01/2025 Patient was seen and examined in clinic. Next He has been complaining of bilateral groin pains and leg pain Denies any shortness of breath and was transferred to telemetry unit for persistent tachycardia Hemoglobin dropped to 6.9 and he will get 1 unit of blood transfusion Review of Systems Review of Systems: All systems reviewed and are unremarkable except as noted below Physical Exam Physical Exam: Lying in bed without any significant symptoms Constitutional: well developed, well nourished, + ill appearing and + obese Eyes: PERRL, conjunctivae normal, anicteric sclerae ENMT: external ear and nose normal, oropharynx normal Neck: trachea midline, no thyromegaly Respiratory: no respiratory distress Auscultation: lungs clear to auscultation bilaterally Cardiovascular: Rate/Rhythm: regular rate and regular rhythm; not tachycardic Heart Sounds: normal S1 and normal S2; no murmur Extremities: + edema ( 1+ edema bilaterally) Gastrointestinal (Abdomen): Inspection/Auscultation: normal bowel sounds; abdomen not distended Percussion/Palpation: abdomen soft; abdomen nontender Musculoskeletal: No acute arthritis involving any of the joint Neurologic: normal touch/pain/proprioception and moves all extremities; no focal motor deficits Lymphatic: no cervical or axillary lymphadenopathy Results & Data Results & Data Vital Signs (Past 12 Hours) Vital Signs Temp Pulse Pulse Resp BP BP Pulse Ox 08/01/25 10:14 36.5 C 88 18 136/96 97 08/01/25 10:00 08/01/25 10:00 36.5 C 82 20 136/76 99 08/01/25 09:44 36.5 C 78 20 101/95 99 08/01/25 09:29 36.5 C 97 H 20 90/65 L 99 08/01/25 09:07 36.5 C 122 H 18 90/65 L 98 08/01/25 07:55 114 H 08/01/25 07:55 08/01/25 07:26 36.8 C 108 H 18 135/78 97 08/01/25 05:00 37.1 C 127 H 20 96 08/01/25 01:36 Pulse Ox O2 Del Method O2 Del Method O2 Flow Rate O2 Flow Rate 08/01/25 10:14 08/01/25 10:00 97 Nasal Cannula 2 08/01/25 10:00 08/01/25 09:44 08/01/25 09:29 2 08/01/25 09:07 08/01/25 07:55 08/01/25 07:55 Room Air 2 08/01/25 07:26 Nasal Cannula 2 08/01/25 05:00 Nasal Cannula 2 08/01/25 01:36 Nasal Cannula 2 Laboratory Results Short CBC 08/01/25 Range/Units 06:38 WBC 15.27 H (4.8-10.8) K/ul Hgb 6.9 L* (14.0-18.0) g/dl Hct 22.9 L (42.0-52.0) % Plt Count 196 (130-400) K/uL BMP 08/01/25 06:38 Sodium 135 L Potassium 3.8 Chloride 101 Carbon Dioxide 22 BUN 36 H Creatinine 1.76 H Glucose 140 H Calcium 8.8 Medications Administered Current Inpatient Medications Acetaminophen (Acetaminophen 500 Mg Tab) 1,000 mg PO Q8H PRN PRN Reason: Pain or Fever Stop: 08/30/25 15:32 Last Admin: 08/01/25 06:24 Dose: 1,000 mg Amlodipine Besylate (Amlodipine Besylate 5 Mg Tab) 5 mg PO DAILY [facility] Stop: 08/30/25 08:59 Last Admin: 08/01/25 08:32 Dose: 5 mg Aspirin (Aspirin 81 Mg Ectab) 81 mg PO DAILY [facility] Stop: 08/30/25 08:59 Last Admin: 08/01/25 08:31 Dose: 81 mg Atorvastatin Calcium (Atorvastatin 40 Mg Tab) 80 mg PO DAILY [facility] Stop: 08/30/25 08:59 Last Admin: 08/01/25 08:31 Dose: 80 mg Avatrombopag (Avatrombopag Maleate 20 Mg Tab) 20 mg PO MoWeFr [facility] Stop: 08/31/25 09:36 Last Admin: 08/01/25 10:28 Dose: 20 mg Dapsone (Dapsone 25 Mg Tab) 100 mg PO DAILY [facility] Stop: 08/30/25 08:59 Last Admin: 08/01/25 08:31 Dose: 100 mg Dextrose (Dextrose 50% 50 Ml Syringe) 25 - 50 ml IV UD PRN; Protocol PRN Reason: Hypoglycemia Protocol Stop: 08/30/25 08:09 Glucagon (Glucagon For Inj 1 Mg Vial) 1 mg SQ UD PRN; Protocol PRN Reason: Hypoglycemia Protocol Stop: 08/30/25 08:09 Glucose (Glucose 40% Gel 15 Gm Tube) 15 - 30 gm PO UD PRN; Protocol PRN Reason: Hypoglycemia Protocol Stop: 08/30/25 08:09 Glucose (Glucose 10 Tab/Tube) 4 - 8 tab PO UD PRN; Protocol PRN Reason: Hypoglycemia Protocol Stop: 08/30/25 08:09 Heparin Sodium/Dextrose (Heparin 29222 Unit/500 Ml D5w) 25,000 units in 500 mls @ 16 mls/hr IV .Q24H [facility]; Protocol Stop: 08/30/25 11:59 Last Titration: 08/01/25 07:17 Dose: 800 units/hr, 16 mls/hr Sodium Chloride (Nss) 100 mls @ 15 mls/hr IV .Q6H40M PRN PRN Reason: For Transfusion Duration Stop: 08/01/25 15:26 Insulin Aspart (Insulin Aspart Per Unit Charge) 0 units SC Q6 [facility] Stop: 08/30/25 08:44 Last Admin: 08/01/25 06:24 Dose: 1 units Insulin Glargine (Lantus Per Unit Charge) 5 units SC HS [facility] Stop: 08/30/25 20:59 Last Admin: 07/31/25 22:46 Dose: 5 units Metoprolol Tartrate (Metoprolol Tartrate 25 Mg Tab) 25 mg PO BID [facility] Stop: 08/30/25 08:59 Last Admin: 08/01/25 08:32 Dose: 25 mg Miscellaneous (Carbohydrates For Hypoglycemia ) 15 - 30 gm PO UD PRN PRN Reason: Hypoglycemia Protocol Stop: 08/30/25 08:09 Mycophenolate Mofetil (Mycophenolate Mofetil 250 Mg Cap) 500 mg PO DAILY [facility] Stop: 08/30/25 08:59 Last Admin: 08/01/25 08:31 Dose: 500 mg Nitroglycerin (Nitroglycerin Sl 0.4 Mg/Tab Tab) 0.4 mg SL Q5M PRN PRN Reason: Chest Pain Stop: 08/30/25 08:09 Oxycodone HCl (Oxycodone Hcl Ir 5 Mg Tab (Immediate Release)) 5 mg PO Q6H PRN PRN Reason: Pain Stop: 08/15/25 08:32 Last Admin: 08/01/25 09:15 Dose: 5 mg Pantoprazole Sodium (Pantoprazole 40 Mg Tab) 40 mg PO DAILY [facility] Stop: 08/30/25 08:59 Last Admin: 08/01/25 08:32 Dose: 40 mg Polyethylene Glycol (Polyethylene (Miralax) 17 Gm Pack) 17 gm PO DAILY PRN PRN Reason: Constipation Stop: 08/30/25 08:09 Prednisone (Prednisone 10 Mg Tablet) 10 mg PO DAILY [facility] Stop: 08/30/25 08:59 Last Admin: 08/01/25 08:41 Dose: Not Given
--- NOTE | 2025-08-01 10:46 | Electrocardiogram Report ---
Test Reason : Blood Pressure : */* mmHG Vent. Rate : 119 BPM Atrial Rate : 119 BPM P-R Int : 128 ms QRS Dur : 90 ms QT Int : 330 ms P-R-T Axes : 61 -2 36 degrees QTcB Int : 464 ms Sinus tachycardia with Premature atrial complexes Otherwise normal ECG When compared with ECG of 31-Jul-2025 08:20, Premature atrial complexes are now Present Confirmed by Wolfgang Gee ([id number]) on 08/01/2025 10:46:52 AM Referred By: REFERRED SELF Confirmed By: Wolfgang Gee
--- NOTE | 2025-08-01 11:58 | Cardiology Progress Note ---
Date of Service August 01, 2025 Assessment & Plan (1) Lower extremity edema: (2) DVT (deep venous thrombosis): (3) Tachycardia: (4) Essential hypertension: Plan Complex 55-year-old male with extended hospitalization since April 2025 with ITP with course complicated venous thrombosis. Presented with edema secondary to venoocclusive disease with bilateral with bilateral deep venous thromboses of lower extremities. Currently tachycardic possibly in part due to demand issues with anemia. Recommendations treat underlying medical issues. Would titrate metoprolol to tartrate to 25 3 times daily. May consider transition to succinate depending on clinical course. Records reflect hypertension with losartan on hold. Will continue amlodipine but may aggravate current edema. No evidence of acute cardiac decompensation Admission and Anticipated Discharge Date Admission Date: July 31, 2025 Subjective Patient was seen and personally examined. Less dyspneic today but significant anemia noted and receiving transfusion at time of examination. Lower extremity edema improved with bedrest. Patient denies worsening shortness of breath or chest pain EKGs demonstrate sinus and sinus tachycardia only. Telemetry similarly sinus tachycardia. Heart rates do appear to be improving slightly with transfusion. Review of Systems Review of Systems: All systems reviewed & are unremarkable except as noted in Subjective Results & Data Vital Signs (Past 12 Hours) Vital Signs Temp Pulse Pulse Resp BP BP Pulse Ox 08/01/25 11:14 36.5 C 96 H 20 131/88 99 08/01/25 10:45 36.6 C 78 20 131/88 97 08/01/25 10:14 36.5 C 88 18 136/96 97 08/01/25 10:00 08/01/25 10:00 36.5 C 82 20 136/76 99 08/01/25 09:44 36.5 C 78 20 101/95 99 08/01/25 09:29 36.5 C 97 H 20 90/65 L 99 08/01/25 09:07 36.5 C 122 H 18 90/65 L 98 08/01/25 07:55 114 H 08/01/25 07:55 08/01/25 07:26 36.8 C 108 H 18 135/78 97 08/01/25 05:00 37.1 C 127 H 20 96 08/01/25 01:36 Pulse Ox O2 Del Method O2 Del Method O2 Flow Rate O2 Flow Rate 08/01/25 11:14 08/01/25 10:45 08/01/25 10:14 08/01/25 10:00 97 Nasal Cannula 2 08/01/25 10:00 08/01/25 09:44 08/01/25 09:29 2 08/01/25 09:07 08/01/25 07:55 08/01/25 07:55 Room Air 2 08/01/25 07:26 Nasal Cannula 2 08/01/25 05:00 Nasal Cannula 2 08/01/25 01:36 Nasal Cannula 2 Laboratory Results Laboratory Results - last 24 hr 07/31/25 07/31/25 07/31/25 02:22 12:03 15:15 WBC RBC Hgb Hct MCV MCH MCHC RDW Std Deviation RDW Coeff of Johnny Plt Count MPV Immature Gran % (Auto) Neut % (Auto) Lymph % (Auto) [place] % (Auto) Eos % (Auto) Baso % (Auto) Neut # (Auto) Lymph # (Auto) [place] # (Auto) Eos # (Auto) Baso # (Auto) Immature Gran # (Auto) Absolute Nucleated RBC Nucleated RBC % (auto) Polychromasia Tear Drop Cells Ovalocytes Acanthocytes (Spur) Heparin Anti-Xa, Unfract Sodium Potassium Chloride Carbon Dioxide Anion Gap BUN Creatinine Est Cr Clr Drug Dosing eGFR BUN/Creatinine Ratio Glucose POC Glucose 135 H Lactate Calcium Magnesium Troponin I High Sens 28.8 H Blood Type A Positive Antibody Screen NEGATIVE Crossmatch See Detail 07/31/25 07/31/25 07/31/25 19:23 20:35 20:39 WBC RBC Hgb Hct MCV MCH MCHC RDW Std Deviation RDW Coeff of Johnny Plt Count MPV Immature Gran % (Auto) Neut % (Auto) Lymph % (Auto) [place] % (Auto) Eos % (Auto) Baso % (Auto) Neut # (Auto) Lymph # (Auto) [place] # (Auto) Eos # (Auto) Baso # (Auto) Immature Gran # (Auto) Absolute Nucleated RBC Nucleated RBC % (auto) Polychromasia Tear Drop Cells Ovalocytes Acanthocytes (Spur) Heparin Anti-Xa, Unfract 0.81 H* Sodium Potassium Chloride Carbon Dioxide Anion Gap BUN Creatinine Est Cr Clr Drug Dosing eGFR BUN/Creatinine Ratio Glucose POC Glucose 158 H Lactate 0.7 Calcium Magnesium Troponin I High Sens 31.0 H Blood Type Antibody Screen Crossmatch 07/31/25 08/01/25 08/01/25 22:47 00:07 06:08 WBC RBC Hgb Hct MCV MCH MCHC RDW Std Deviation RDW Coeff of Johnny Plt Count MPV Immature Gran % (Auto) Neut % (Auto) Lymph % (Auto) [place] % (Auto) Eos % (Auto) Baso % (Auto) Neut # (Auto) Lymph # (Auto) [place] # (Auto) Eos # (Auto) Baso # (Auto) Immature Gran # (Auto) Absolute Nucleated RBC Nucleated RBC % (auto) Polychromasia Tear Drop Cells Ovalocytes Acanthocytes (Spur) Heparin Anti-Xa, Unfract 0.60 Sodium Potassium Chloride Carbon Dioxide Anion Gap BUN Creatinine Est Cr Clr Drug Dosing eGFR BUN/Creatinine Ratio Glucose POC Glucose 156 H 148 H Lactate Calcium Magnesium Troponin I High Sens Blood Type Antibody Screen Crossmatch 08/01/25 06:38 WBC 15.27 H RBC 2.85 L Hgb 6.9 L* Hct 22.9 L MCV 80.4 MCH 24.2 L MCHC 30.1 L RDW Std Deviation 62.2 H RDW Coeff of Johnny 21.1 H Plt Count 196 MPV 9.9 Immature Gran % (Auto) 1.2 Neut % (Auto) 76.3 Lymph % (Auto) 5.7 [place] % (Auto) 15.5 Eos % (Auto) 0.9 Baso % (Auto) 0.4 Neut # (Auto) 11.67 H Lymph # (Auto) 0.87 L [place] # (Auto) 2.36 H Eos # (Auto) 0.13 Baso # (Auto) 0.06 Immature Gran # (Auto) 0.18 Absolute Nucleated RBC 0.05 Nucleated RBC % (auto) 0.3 Polychromasia 1+ Tear Drop Cells 1+ Ovalocytes 1+ Acanthocytes (Spur) 1+ Heparin Anti-Xa, Unfract 0.42 Sodium 135 L Potassium 3.8 Chloride 101 Carbon Dioxide 22 Anion Gap 12 H BUN 36 H Creatinine 1.76 H Est Cr Clr Drug Dosing 68.6 eGFR 44.82 BUN/Creatinine Ratio 20.5 H Glucose 140 H POC Glucose Lactate Calcium 8.8 Magnesium 2.1 Troponin I High Sens Blood Type Antibody Screen Crossmatch PG Care Time/CCT Total # of Minutes Spent Total Time Spent with Patient: Total time spent is greater than 50% in coordination of care (as documented) at patient's floor/unit and/or counseling patient: Coding Level of Care Code 77011 SUB INP/OBS CARE 350MIN Diagnoses Lower extremity edema R60.0 Chronic deep vein thrombosis (DVT) of both lower extremities, unspecified vein I82.503 DVT location: lower extremity Affected thrombotic vein of extremity: unspecified vein of extremity Chronicity: chronic Laterality: bilateral Tachycardia R00.0 Essential hypertension I10 (2) DVT (deep venous thrombosis) DVT location: lower extremity Affected thrombotic vein of extremity: unspecified vein of extremity Chronicity: chronic Laterality: bilateral Qualified Code(s): I82.503 - Chronic embolism and thrombosis of unspecified deep veins of lower extremity, bilateral
[2025-08-01] MEDS: OPTIRAY 320 125ml IV ONE (12:28)
--- NOTE | 2025-08-01 12:54 | CT Scan Report ---
CT ANGIOGRAM OF THE CHEST CLINICAL HISTORY: Shortness of breath. Evaluate for pulmonary embolus. COMPARISON STUDY: Chest CT April 21, 2025. Chest radiograph July 30, 2025. TECHNIQUE: Following the IV administration of 120 cc of Optiray 320, CT angiogram of the chest was pe rformed from the upper abdomen to the thoracic inlet utilizing the pulmonary embolus protocol. Images are reviewed in the axial, sagittal, and coronal planes. 3-D MIPS images are created and assessed. I V contrast was administered without complication. A dose lowering technique was utilized adhering to the principles of ALARA. CT DOSE: 918.71 mGy.cm FINDINGS: No pulmonary emboli are identified although segmental and subsegmental pulmonary arteries a re suboptimally assessed due to artifact. There is no thoracic aortic dissection. Size of the heart i s normal. There is no pericardial effusion. Central airways are patent. There is no pneumothorax or p leural effusion. There is no consolidation to suggest pneumonia. Groundglass opacities and linear den sities favor atelectasis. There is an apparent filling defect within the proximal SVC at the confluen ce of the brachycephalic veins which measures 1.2 cm. This appeared to be present on prior CT of April 21, 2025 and measures 1.5 cm. The left brachycephalic vein is diminutive. Bilateral adrenal nodules are better depicted on abdominal CT of July 23, 2025. IMPRESSION: 1. No pulmonary emboli identified although segmental and subsegmental pulmonary arteries suboptimally assessed due to artifact. 2. Apparent 1.2 cm filling defect within the proximal SVC at the confluence of the brachiocephalic ve ins, decreased when compared to CT of April 21, 2025. This may be artifactual however a small amount o f thrombus could appear similar. A mass is considered less likely. 3. No consolidation to suggest pneumonia. ACT 112: Negative or not required by law. Electronically signed by: Gustavo Lima M.D. 08/01/2025 12:53 PM
[2025-08-01] MEDS: METOPROLOL TARTRATE 25 MG TAB PO SCH (13:50)
[2025-08-01 14:49] LABS: Hematocrit (blood only) 24.1 % (42.0-52.0); Hemoglobin 7.4 g/dl (14.0-18.0)
[2025-08-01] MEDS: WARFARIN SOD 7.5 MG TAB PO ONE (17:31)
[2025-08-01] MEDS: INSULIN ASPART PER UNIT CHARGE SC SCH (22:13)
[2025-08-02 06:46] LABS: Hematocrit (blood only) 23.5 % (42.0-52.0); Hemoglobin 7.6 g/dl (14.0-18.0); Immature Granulocytes # (auto) 0.24 K/uL (0.01-0.20); Immature Granulocytes % (auto) 1.5 %; Mean Corpuscular Hemoglobin 25.5 pg (25.0-34.0); Mean Corpuscular Volume 78.9 fL (80.0-100.0); Platelet Count 213 K/uL (130-400); RDW Standard Deviation 58.4 fL (36.4-46.3); Red Blood Count 2.98 M/uL (4.70-6.10); White Blood Count 15.67 K/ul (4.8-10.8)
[2025-08-02 07:12] LABS: ANTI-Xa, UFH(UnfractionatedHep 0.15 IU/ml (0.3-0.7)
[2025-08-02 07:14] LABS: INR 1.1 (0.9-1.1); Prothrombin Time 11.3 Seconds (9.0-12.0)
[2025-08-02] MEDS ORDERED: METOPROLOL TARTRATE 1 MG/ML VIAL IV PRN (08:08)
[2025-08-02 08:09] LABS: Anion Gap 8.0 (3-11); Blood Urea Nitrogen 30.0 mg/dl (6-23); Calcium 8.8 mg/dl (8.6-10.3); Carbon Dioxide 24.0 mmol/L (21-32); Chloride 101.0 mmol/L (98-107); Creatinine Clr Calc Pharmacy 75.7 ml/min; Glucose 132.0 mg/dl (70-99(Fasting)); Potassium 4.1 mmol/L (3.5-5.1); Sodium 133.0 mmol/L (136-145)
[2025-08-02] MEDS: METOPROLOL TARTRATE 1 MG/ML VIAL IV ONE (08:11)
[2025-08-02 09:31] LABS: Anisocytosis Present; Toxic Vacuolation 1+
[2025-08-02] MEDS ORDERED: 0.2 MICRON FILTER SET 1 EACH IV STA (09:54)
[2025-08-02] MEDS ORDERED: STAT IV Infusion **Titration per Protocol STA (09:54)
[2025-08-02] MEDS ORDERED: AMIODARONE IV BOLUS & DRIP IV STA (09:54)
--- NOTE | 2025-08-02 09:58 | Vascular Surgery Consultation ---
Date of Consultation August 02, 2025 Assessment & Plan (1) DVT (deep venous thrombosis): occlusive thrombus in femoral and popliteal veins bilaterally, as well as in the superficial greater saphenous veins, in setting of IVC filter, despite Eliquis Currently on heparin drip and tolerating well No signs of phlegmasia cerulea dolens or phlegmasia alba dolens recommend continuing anticoagulation as tolerated Do not recommend removing/manipulating IVC filter at this time. Affected thrombotic vein of extremity: unspecified vein of extremity Chronicity: chronic DVT location: lower extremity Laterality: bilateral Qualified Code(s): I82.503 - Chronic embolism and thrombosis of unspecified deep veins of lower extremity, bilateral (2) Lower extremity edema: No signs of phlegmasia cerulea dolens or phlegmasia alba dolens Continue anticoagulation as tolerated elevate legs to help with lower extremity edema Consider compression stockings to help alleviate edema History of Present Illness Reason for Consultation: extensive DVT with clot in IVC filter Attending Physician: Collins Gurrola MD History of Present Illness Mr Tapia is a 55 year old male admitted with dyspnea on exertion, who we are being asked to see due to extensive DVT on anticoagulation (Eliquis) and clot in existing IVC filter. History was obtained from patient as well as reviewing his medical record. Mr. Tapia has a medical history significant for ITP, type 2 diabetes, dyslipidemia, atopic dermatitis, tobacco use disorder, CVA, traumatic subdural hematoma, chronic anemia, multiple DVTs status post IVC filter, on Eliquis, history of chronic left IJ thrombus, Klinefelter syndrome, bilateral adrenal nodules, thyroid nodules. He recently underwent a prolonged hospital stay in [place] which was complicated by multiple DVTs status post IVC filter placement because of low platelets from his refractory ITP and also ischemic stroke and subdural hematoma, all preventative for him being on anticoagulation. During the stay in [facility] he also required multiple blood transfusions secondary to recurrent severe epistaxis also developed submucosal hematomas and necrotic tongue hematoma secondary to severe thrombocytopenia. He presented [facility] ED with complaints of dyspnea on exertion along with worsening edema and pain the lower extremities. Work up has included CTA to rule out PE, and also lower extremity venous duplex, which demonstrated extensive DVT involving superficial and deep veins including, femoral, popliteal veins as well as superficial femoral vein. This is while he has been taking Eliquis. He was started on heparin drip in house. He complains of continued swelling in his legs, from his groins down to his feet. His main complaint this morning is feeling dizzy, and he was noted to have gone into afib with RVR. He was also noted to be anemic with Hgb 6.9 and has required transfusion with 1 unit blood. He is currently tolerating his heparin drip. Allergies Allergy/AdvReac Type Severity Reaction Status Date / Time pollen extracts Allergy Intermediate ITCHY Verified 07/25/25 21:33 EYES, SNEEZING varenicline [From Chantix] AdvReac Intermediate Insomnia Verified 07/25/25 21:33 Home Medications Medication Instructions Recorded Confirmed Type amlodipine 5 mg tablet 5 mg PO DAILY 07/31/25 07/31/25 History apixaban 5 mg tablet (Eliquis) 5 mg PO BID 07/31/25 07/31/25 History aspirin 81 mg tablet,delayed 81 mg PO DAILY 07/31/25 07/31/25 History release atorvastatin 80 mg tablet 80 mg PO DAILY 07/31/25 07/31/25 History avatrombopag 20 mg tablet 20 mg PO UD 07/31/25 07/31/25 History (Doptelet (30 tab pack)) dapsone 100 mg tablet 100 mg PO DAILY 07/31/25 07/31/25 History fluocinonide 0.05 % topical cream 1 applic topical DAILY 07/31/25 07/31/25 History losartan 100 mg tablet 100 mg PO DAILY 07/31/25 07/31/25 History metoprolol tartrate 25 mg tablet 25 mg PO BID 07/31/25 07/31/25 History mycophenolate mofetil 500 mg tablet 500 mg PO DAILY 07/31/25 07/31/25 History pantoprazole 40 mg tablet,delayed 40 mg PO DAILY 07/31/25 07/31/25 History release Patient History Medical History (Updated 08/02/25 @ 11:17 by Meggan Patel PA-C) Presence of IVC filter Deep vein thrombosis (DVT) of left upper extremity Atopic dermatitis Surgical History No pertinent past surgical history Social History Smoking Status: Never smoker Tobacco Type: Cigarettes Cigarettes Per Day: 10; Second Hand Exposure: No; Do You Dip or Chew Tobacco: No; Hx Alcohol Use: Yes Alcohol type: beer Hx Substance Use: Yes Substance Use Type Other:: 3 times per week Preferred Language: Citizen Of [place] Communication Ability: Effective Librarian Specialist Required: No Beliefs That Will Affect Care: None Current Living Situation: Significant Other current occupation: [employer] Feels Safe at Home: Yes Assistive Devices: Walker Review of Systems Constitutional: denies fevers, chills Respiratory: + shortness of breath, negative cough Cardiovascular: Additional Comments: + dyspnea on exertion, + irregular heart beat, no chest pain Musculoskeletal: + bilateral lower extremity edema Integumentary: denies discoloration, rashes, itching Neurologic: history of CVA Hematologic / Lymphatic: history of ITP, history of DVT Physical Exam Constitutional: well developed, well nourished, in no distress, lying in bed ENMT: nasal cannula in place Respiratory: no increased respiratory effort, no accessory muscle use, on oxygen Cardiovascular: tachycardic, + non-pitting edema from upper thighs to ankles bilaterally right DP palpable, L DP present with doppler Skin: no erythema or discoloration noted to the bilateral lower extremities, no rashes noted. Neurologic: AA&O x 3, no gross defecits noted. Results & Data Vital Signs (Past 12 Hours) Vital Signs Temp Pulse Pulse Resp BP BP Pulse Ox 08/02/25 08:54 154 H 124/103 H 08/02/25 08:16 117/89 08/02/25 08:15 129/107 H 08/02/25 08:11 188 H 122/97 08/02/25 07:53 36.7 C 167 H 18 122/97 98 08/02/25 06:09 08/02/25 03:42 37.1 C 116 H 18 118/78 95 08/01/25 22:44 37.4 C 99 H 18 124/84 94 08/01/25 22:01 126 H O2 Del Method O2 Flow Rate 08/02/25 08:54 08/02/25 08:16 08/02/25 08:15 08/02/25 08:11 08/02/25 07:53 Nasal Cannula 2 08/02/25 06:09 Nasal Cannula 2 08/02/25 03:42 Nasal Cannula 2.0 08/01/25 22:44 Nasal Cannula 1.5 08/01/25 22:01 Laboratory Results 08/02/25 08/02/25 08/01/25 06:17 06:14 21:49 WBC 15.67 H RBC 2.98 L Hgb 7.6 L Hct 23.5 L MCV 78.9 L MCH 25.5 MCHC 32.3 RDW Std Deviation 58.4 H RDW Coeff of Johnny 20.4 H Plt Count 213 MPV 9.4 Immature Gran % (Auto) 1.5 Neut % (Auto) 78.6 Lymph % (Auto) 4.9 [place] % (Auto) 13.4 Eos % (Auto) 1.2 Baso % (Auto) 0.4 Neut # (Auto) 12.31 H Lymph # (Auto) 0.77 L [place] # (Auto) 2.10 H Eos # (Auto) 0.19 Baso # (Auto) 0.06 Immature Gran # (Auto) 0.24 H Absolute Nucleated RBC 0.04 Nucleated RBC % (auto) 0.3 Toxic Vacuolation 1+ Anisocytosis Present PT 11.3 INR 1.1 Heparin Anti-Xa, Unfract 0.15 L Sodium 133 L Potassium 4.1 Chloride 101 Carbon Dioxide 24 Anion Gap 8 BUN 30 H Creatinine 1.56 H Est Cr Clr Drug Dosing 75.7 eGFR 51.80 BUN/Creatinine Ratio 19.2 Glucose 132 H POC Glucose 178 H Calcium 8.8 TSH 1.345 Crossmatch 08/01/25 08/01/25 07/31/25 14:30 12:46 02:22 WBC RBC Hgb 7.4 L Hct 24.1 L MCV MCH MCHC RDW Std Deviation RDW Coeff of Johnny Plt Count MPV Immature Gran % (Auto) Neut % (Auto) Lymph % (Auto) [place] % (Auto) Eos % (Auto) Baso % (Auto) Neut # (Auto) Lymph # (Auto) [place] # (Auto) Eos # (Auto) Baso # (Auto) Immature Gran # (Auto) Absolute Nucleated RBC Nucleated RBC % (auto) Toxic Vacuolation Anisocytosis PT INR Heparin Anti-Xa, Unfract Sodium Potassium Chloride Carbon Dioxide Anion Gap BUN Creatinine Est Cr Clr Drug Dosing eGFR BUN/Creatinine Ratio Glucose POC Glucose 184 H Calcium TSH Crossmatch See Detail Diagnostic Findings Chest CTA 08/01/25 08:32 CT ANGIOGRAM OF THE CHEST CLINICAL HISTORY: Shortness of breath. Evaluate for pulmonary embolus. COMPARISON STUDY: Chest CT April 21, 2025. Chest radiograph July 30, 2025. TECHNIQUE: Following the IV administration of 120 cc of Optiray 320, CT angiogram of the chest was performed from the upper abdomen to the thoracic in let utilizing the pulmonary embolus protocol. Images are reviewed in the axial, sagittal, and coronal planes. 3-D MIPS images are created and assessed. IV contrast was administered without complication. A dose lowering technique was utilized adhering to the principles of ALARA. CT DOSE: 918.71 mGy.cm FINDINGS: No pulmonary emboli are identified although segmental and subsegmental pulmonary arteries are suboptimally assessed due to artifact. There is no thoracic aortic dissection. Size of the heart is normal. There is no pericardial effusion. Central airways are patent. There is no pneumothorax or pleural effusion. There is no consolidation to suggest pneumonia. Groundglass opacities and linear densities favor atelectasis. There is an apparent filling defect within the proximal SVC at the confluence of the brachycephalic veins which measures 1.2 cm. This appeared to be present on prior CT of April 21, 2025 and measures 1.5 cm. The left brachycephalic vein is diminutive. Bilateral adrenal nodules are better depicted on abdominal CT of July 23, 2025. IMPRESSION: 1. No pulmonary emboli identified although segmental and subsegmental pulmonary arteries suboptimally assessed due to artifact. 2. Apparent 1.2 cm filling defect within the proximal SVC at the confluence of the brachiocephalic veins, decreased when compared to CT of April 21, 2025. This may be artifactual however a small amount of thrombus could appear similar. A mass is considered less likely. 3. No consolidation to suggest pneumonia. ACT 112: Negative or not required by law. Electronically signed by: Gustavo Lima M.D. 08/01/2025 12:53 PM Medications Administered Home Medications Medication Instructions Recorded Confirmed Last Taken amlodipine 5 mg tablet 5 mg PO DAILY 07/31/25 07/31/25 07/30/25 apixaban 5 mg tablet (Eliquis) 5 mg PO BID 07/31/25 07/31/25 07/30/25 aspirin 81 mg tablet,delayed 81 mg PO DAILY 07/31/25 07/31/25 07/30/25 release atorvastatin 80 mg tablet 80 mg PO DAILY 07/31/25 07/31/25 07/30/25 avatrombopag 20 mg tablet 20 mg PO UD 07/31/25 07/31/25 07/29/25 (Doptelet (30 tab pack)) dapsone 100 mg tablet 100 mg PO DAILY 07/31/25 07/31/25 07/30/25 fluocinonide 0.05 % topical cream 1 applic topical DAILY 07/31/25 07/31/25 07/30/25 losartan 100 mg tablet 100 mg PO DAILY 07/31/25 07/31/25 07/30/25 metoprolol tartrate 25 mg tablet 25 mg PO BID 07/31/25 07/31/25 07/30/25 mycophenolate mofetil 500 mg tablet 500 mg PO DAILY 07/31/25 07/31/25 07/30/25 pantoprazole 40 mg tablet,delayed 40 mg PO DAILY 07/31/25 07/31/25 07/30/25 release Active Medications Generic Name Dose Route Start Last Admin Trade Name Fanny PRN Reason Stop Dose Admin Acetaminophen 1,000 mg 07/31/25 15:33 08/01/25 06:24 Acetaminophen 500 Mg Tab PO 08/30/25 15:32 1,000 mg Q8H PRN Administration Pain or Fever Amlodipine Besylate 5 mg 07/31/25 09:00 08/02/25 09:11 Amlodipine Besylate 5 Mg Tab PO 08/30/25 08:59 5 mg DAILY [facility]RIST Administration Aspirin 81 mg 07/31/25 09:00 08/02/25 09:11 Aspirin 81 Mg Ectab PO 08/30/25 08:59 81 mg DAILY [facility]ST Administration Atorvastatin Calcium 80 mg 07/31/25 09:00 08/02/25 09:11 Atorvastatin 40 Mg Tab PO 08/30/25 08:59 80 mg DAILY [facility]ST Administration Avatrombopag 20 mg 08/01/25 09:37 08/01/25 10:28 Avatrombopag Maleate 20 Mg Tab PO 08/31/25 09:36 20 mg MoWeFr [facility]ST Administration Dapsone 100 mg 07/31/25 09:00 08/02/25 09:11 Dapsone 25 Mg Tab PO 08/30/25 08:59 100 mg DAILY [facility]ST Administration Heparin Sodium/Dextrose 25,000 units in 500 mls @ 20 mls/hr 07/31/25 12:00 08/02/25 10:11 Heparin 04726 Unit/500 Ml D5w IV 08/30/25 11:59 1,000 units/hr .Q24H [facility]ST 20 mls/hr Titration Protocol 1,000 UNITS/HR Amiodarone HCl/Dextrose 360 mg in 200 mls @ 33.333 mls/hr 08/02/25 10:04 08/02/25 10:24 Nexterone / D5w IV 08/02/25 16:03 1 mg/min ONE ONE 33.3 mls/hr Administration 1 MG/MIN Insulin Aspart 0 units 08/01/25 22:00 08/02/25 08:55 Insulin Aspart Per Unit Charge SC 08/31/25 21:59 Not Given ACHS [facility] Insulin Glargine 5 units 07/31/25 21:00 08/01/25 22:12 Lantus Per Unit Charge SC 08/30/25 20:59 5 units HS [facility] Administration Metoprolol Tartrate 25 mg 08/01/25 14:00 08/02/25 09:11 Metoprolol Tartrate 25 Mg Tab PO 08/31/25 13:59 25 mg TID [facility] Administration Mycophenolate Mofetil 500 mg 07/31/25 09:00 08/02/25 09:12 Mycophenolate Mofetil 250 Mg Cap PO 08/30/25 08:59 500 mg DAILY [facility] Administration Oxycodone HCl 5 mg 08/01/25 08:33 08/02/25 05:53 Oxycodone Hcl Ir 5 Mg Tab (Immediate Release) PO 08/15/25 08:32 5 mg Q6H PRN Administration Pain Pantoprazole Sodium 40 mg 07/31/25 09:00 08/02/25 09:12 Pantoprazole 40 Mg Tab PO 08/30/25 08:59 40 mg DAILY [facility] Administration Prednisone 10 mg 07/31/25 09:00 08/02/25 09:10 Prednisone 10 Mg Tablet PO 08/30/25 08:59 Not Given DAILY [facility] PG Care Time/CCT Total # of Minutes Spent Total Time Spent with Patient: Total time spent is greater than 50% in coordination of care (as documented) at patient's floor/unit and/or counseling patient: [place] [address] IN/OBS CONSULT LVL 3,45M Patient Type New History Detailed Exam Detailed Medical Decision Making Moderate Complexity Diagnoses Chronic deep vein thrombosis (DVT) of both lower extremities, unspecified vein I82.503 Affected thrombotic vein of extremity: unspecified vein of extremity Chronicity: chronic DVT location: lower extremity Laterality: bilateral Lower extremity edema R60.0
[2025-08-02] MEDS: HEPARIN SOD (PORCINE) 1000 UNIT/ML IV STA ×2 (10:10→18:06)
[2025-08-02] MEDS: AMIODARONE / D5W 150 MG/100 ML BAG IV STA (10:12)
[2025-08-02] MEDS: AMIODARONE / D5W 360 MG/200 ML BAG IV ONE (10:24)
--- NOTE | 2025-08-02 10:42 | Cardiology Progress Note ---
Date of Service August 02, 2025 Assessment & Plan (1) Atrial fibrillation with rapid ventricular response: (2) Lower extremity edema: (3) DVT (deep venous thrombosis): (4) Tachycardia: (5) Essential hypertension: Plan Complex 55-year-old male with extended hospitalization since April 2025 with ITP with course complicated venous thrombosis. Presented with edema secondary to venoocclusive disease with bilateral with bilateral deep venous thromboses of lower extremities. Currently tachycardic possibly in part due to demand issues with anemia. Recommendations treat underlying medical issues. Would titrate metoprolol to tartrate to 25 3 times daily. May consider transition to succinate depending on clinical course. Records reflect hypertension with losartan on hold. Will continue amlodipine but may aggravate current edema. No evidence of acute cardiac decompensation 08/02/2025 Patient's underlying presenting concerns being addressed anemia, extensive deep venous thromboses bilaterally with patient anticoag with heparin with plans to transition to warfarin. Patient this morning transition to atrial fibrillation with rapid ventricular response, initially minimally symptomatic. 1. Atrial fibrillation with rapid ventricular response: Patient initially in sinus tachycardia on presentation slowing somewhat with beta-julia therapy. This morning lapsed into atrial fibrillation. Expect some continued symptomatic complaints with significant elevation in heart rate despite beta-julia treatment. Will add IV amiodarone with bolus and drip. Assessment heart rate and rhythm, daily EKG.LV systolic function preserved on echocardiogram 2. Edema with intact peripheral pulses secondary to extensive bilateral DVT Admission and Anticipated Discharge Date Admission Date: July 31, 2025 Subjective Patient was seen and personally examined. Lapsed into atrial fibrillation overnight with elevated ventricular response rate. Mild dizziness. No chest pain or worsening shortness of breath. Initially not aware of elevated heart rate. Anticoagulated as per primary service Review of Systems Review of Systems: All systems reviewed & are unremarkable except as noted in Subjective Physical Exam Constitutional: no acute distress and not obese Eyes: PERRL, conjunctivae normal, anicteric sclerae ENMT: external ear and nose normal, oropharynx normal Neck: trachea midline, no thyromegaly Respiratory: no labored breathing Auscultation: + diminished lung sounds Cardiovascular: Rate/Rhythm: + tachycardic and + irregularly irregular Heart Sounds: no murmur Extremities: + edema Gastrointestinal (Abdomen): normal bowel sounds, soft, nontender, no hepatosplenomegaly Results & Data Vital Signs (Past 12 Hours) Vital Signs Temp Pulse Pulse Resp BP BP Pulse Ox 08/02/25 08:54 154 H 124/103 H 08/02/25 08:16 117/89 08/02/25 08:15 129/107 H 08/02/25 08:11 188 H 122/97 08/02/25 07:53 36.7 C 167 H 18 122/97 98 08/02/25 06:09 08/02/25 03:42 37.1 C 116 H 18 118/78 95 08/01/25 22:44 37.4 C 99 H 18 124/84 94 O2 Del Method O2 Flow Rate 08/02/25 08:54 08/02/25 08:16 08/02/25 08:15 08/02/25 08:11 08/02/25 07:53 Nasal Cannula 2 08/02/25 06:09 Nasal Cannula 2 08/02/25 03:42 Nasal Cannula 2.0 08/01/25 22:44 Nasal Cannula 1.5 Laboratory Results Laboratory Results - last 24 hr 07/31/25 08/01/25 08/01/25 02:22 12:46 14:30 WBC RBC Hgb 7.4 L Hct 24.1 L MCV MCH MCHC RDW Std Deviation RDW Coeff of Johnny Plt Count MPV Immature Gran % (Auto) Neut % (Auto) Lymph % (Auto) [place] % (Auto) Eos % (Auto) Baso % (Auto) Neut # (Auto) Lymph # (Auto) [place] # (Auto) Eos # (Auto) Baso # (Auto) Immature Gran # (Auto) Absolute Nucleated RBC Nucleated RBC % (auto) Toxic Vacuolation Anisocytosis PT INR Heparin Anti-Xa, Unfract Sodium Potassium Chloride Carbon Dioxide Anion Gap BUN Creatinine Est Cr Clr Drug Dosing eGFR BUN/Creatinine Ratio Glucose POC Glucose 184 H Calcium TSH Crossmatch See Detail 08/01/25 08/02/25 08/02/25 21:49 06:14 06:17 WBC 15.67 H RBC 2.98 L Hgb 7.6 L Hct 23.5 L MCV 78.9 L MCH 25.5 MCHC 32.3 RDW Std Deviation 58.4 H RDW Coeff of Johnny 20.4 H Plt Count 213 MPV 9.4 Immature Gran % (Auto) 1.5 Neut % (Auto) 78.6 Lymph % (Auto) 4.9 [place] % (Auto) 13.4 Eos % (Auto) 1.2 Baso % (Auto) 0.4 Neut # (Auto) 12.31 H Lymph # (Auto) 0.77 L [place] # (Auto) 2.10 H Eos # (Auto) 0.19 Baso # (Auto) 0.06 Immature Gran # (Auto) 0.24 H Absolute Nucleated RBC 0.04 Nucleated RBC % (auto) 0.3 Toxic Vacuolation 1+ Anisocytosis Present PT 11.3 INR 1.1 Heparin Anti-Xa, Unfract 0.15 L Sodium 133 L Potassium 4.1 Chloride 101 Carbon Dioxide 24 Anion Gap 8 BUN 30 H Creatinine 1.56 H Est Cr Clr Drug Dosing 75.7 eGFR 51.80 BUN/Creatinine Ratio 19.2 Glucose 132 H POC Glucose 178 H Calcium 8.8 TSH Pending Crossmatch PG Care Time/CCT Total # of Minutes Spent Total Time Spent with Patient: Total time spent is greater than 50% in coordination of care (as documented) at patient's floor/unit and/or counseling patient: Coding Level of Care Code 00756 SUB INP/OBS CARE 3/50MIN Diagnoses Atrial fibrillation with rapid ventricular response I48.91 Lower extremity edema R60.0 Chronic deep vein thrombosis (DVT) of both lower extremities, unspecified vein I82.503 Affected thrombotic vein of extremity: unspecified vein of extremity Chronicity: chronic DVT location: lower extremity Laterality: bilateral Tachycardia R00.0 Essential hypertension I10 (3) DVT (deep venous thrombosis) Affected thrombotic vein of extremity: unspecified vein of extremity Chronicity: chronic DVT location: lower extremity Laterality: bilateral Qualified Code(s): I82.503 - Chronic embolism and thrombosis of unspecified deep veins of lower extremity, bilateral
[2025-08-02 10:54] LABS: Thyroid Stimulating Hormone 1.345 uIu/ml (0.300-4.500)
--- NOTE | 2025-08-02 11:23 | Hospitalist Progress Note ---
Date of Service August 02, 2025 Assessment & Plan (1) SILVA (dyspnea on exertion): Plan: 55-year-old male with past medical significant for type 2 diabetes, dyslipidemia, history of ITP, atopic dermatitis, tobacco use disorder, CVA, traumatic subdural hematoma, chronic anemia baseline hemoglobin 8-9, DVT status post IVC filter, on Eliquis, history of chronic left IJ thrombus, Klinefelter syndrome, bilateral adrenal nodules, thyroid nodules who was recently in the hospital for dizziness thought to be orthostatic and MAGDA thought to be from hypovolemia got discharged on 07/27/2025 comes back because of edema in lower extremities and pain in the lower extremities and also dyspnea on exertion. Patient denies any chest pain. Denies any headache. No blurred vision. No runny nose or sore throat. No cough. No nausea. No abdominal pain. Normal bowel and bladder movements. Denies any blood in the stools. In April patient was transferred from [facility] to [facility] for refractory ITP to IVIG and steroids and had a prolonged hospital stay until July 13, 2025. His hospital stay was complicated by multiple DVTs status post IVC filter placement because of low platelets and also ischemic stroke and subdural hematoma, non-ST left OK, hospital-acquired pneumonia and incidentally on bone marrow biopsy also found to have Klinefelter syndrome. During the stay in [facility] he also required multiple blood transfusions secondary to recurrent severe epistaxis also developed submucosal hematomas and necrotic tongue hematoma secondary to severe thrombocytopenia which is resolved. A-fib with RVR Seems to have paroxysmal atrial fibrillation Noted to have sinus rhythm this morning and again heart rate went up to 200 with atrial fibrillation Appreciate cardiology input and recommendation Started on amiodarone drip Dyspnea on exertion No significant EKG changes and chest x-ray findings Serial troponins are unremarkable Echo of the heart showedstudy was technically difficult, LV systolic function is normal, LVEF 60 to 65%, grade 1 diastolic dysfunction and mild pulmonic valvular regurgitation Denies any more pain and has been requiring 2 L to maintain saturation Appreciate cardiology input and recommendation Has had significant tachycardia seems to be resolved CT of the chest did not show any pulmonary embolism He has been requiring 2 L of oxygen but does not have any shortness of breath History of DVT status post IVC filter and also on Eliquis Bilateral lower extremity edema-Worsening Lower extremity ultrasound showed extensive DVT involving the superficial and deep veins---- he mentioned that he has been taking Eliquis regularly. Not sure if the extensive DVTs secondary to Eliquis failure are not. Will discuss with the retail parts professional. Tenderness is due to superficial phlebitis Edema could be in part due to clot burden Discussed with the retail parts professional Dr. Pereyra and advised to start Coumadin for DVT Discussed with the patient and 2 of his sisters and he started with Coumadin on 08/01/2025 Given the history of clot involving IVC filter a vascular surgery evaluation was requested as well MAGDA Creatinine 1.9 Baseline creatinine around 1 Will follow repeat labs Will follow CT abdomen pelvis- noted Creatinine shows mild improvement with GFR more than 40 Will give cautious amount of IV fluid with the use of contrast His kidney function seems to be little better with creatinine at 1.56 today History of ITP On CellCept, dapsone and Doptelet Ongoing steroid taper currently on prednisone 10 mg daily Platelets normal at 213 as of 08/02/2025 Chronic anemia Hemoglobin 7.6 today Hemoglobin was 7.6 on 07/2425 Hemoglobin dropped down to 6.9 today and he will receive 1 unit of blood transfusion Hemoglobin went up to 7.6 today Diabetes Continue home long-acting insulin Sliding scale Monitor Tachycardia-as above and started on Coumadin IV Lopressor 2.5 mg Continue home metoprolol tartrate Tachycardia is resolved and will get CTA to rule out pulmonary embolism Hypertension Holding losartan for MAGDA Continue amlodipine and metoprolol's tartrate Amlodipine could be contributing to the lower EXTR edema We will monitor GERD On Protonix History of DVT Status post IVC filter On Eliquis History of CVA On aspirin and statin and Eliquis Morbid Obesity with BMI 40.9 Counselling DVT prophylaxis IV Heparin for now and started on Coumadin Disposition Med/telemetry Full code Admission and Anticipated Discharge Date Admission Date: July 31, 2025 Subjective 08/01/2025 Patient was seen and examined in clinic. Next He has been complaining of bilateral groin pains and leg pain Denies any shortness of breath and was transferred to telemetry unit for persistent tachycardia Hemoglobin dropped to 6.9 and he will get 1 unit of blood transfusion 08/02/2025 The patient was seen and examined in telemetry unit He was noted to have very high heart rate this morning and complains some dizziness without any palpitation or shortness of breath Swelling of the legs seems to be little worse today Leg pain seems to be controlled Review of Systems Review of Systems: All systems reviewed and are unremarkable except as noted below Physical Exam Physical Exam: Lying in bed without any significant symptoms Constitutional: well developed, well nourished, + ill appearing and + obese Eyes: PERRL, conjunctivae normal, anicteric sclerae ENMT: external ear and nose normal, oropharynx normal Neck: trachea midline, no thyromegaly Respiratory: no respiratory distress Auscultation: lungs clear to auscultation bilaterally Cardiovascular: Rate/Rhythm: regular rate and regular rhythm; not tachycardic Heart Sounds: normal S1 and normal S2; no murmur Extremities: + edema ( 1+ edema bilaterally) Gastrointestinal (Abdomen): Inspection/Auscultation: normal bowel sounds; abdomen not distended Percussion/Palpation: abdomen soft; abdomen nontender Musculoskeletal: No acute arthritis involving any of the joint Neurologic: normal touch/pain/proprioception and moves all extremities; no focal motor deficits Lymphatic: no cervical or axillary lymphadenopathy Results & Data Results & Data Vital Signs (Past 12 Hours) Vital Signs Temp Pulse Pulse Resp BP BP Pulse Ox 08/02/25 10:43 08/02/25 10:00 08/02/25 08:54 154 H 124/103 H 08/02/25 08:16 117/89 08/02/25 08:15 129/107 H 08/02/25 08:11 188 H 122/97 08/02/25 07:53 36.7 C 167 H 18 122/97 98 08/02/25 06:09 08/02/25 03:42 37.1 C 116 H 18 118/78 95 Pulse Ox O2 Del Method O2 Del Method O2 Flow Rate O2 Flow Rate 08/02/25 10:43 Nasal Cannula 2 08/02/25 10:00 97 Nasal Cannula 2 08/02/25 08:54 08/02/25 08:16 08/02/25 08:15 08/02/25 08:11 08/02/25 07:53 Nasal Cannula 2 08/02/25 06:09 Nasal Cannula 2 08/02/25 03:42 Nasal Cannula 2.0 Laboratory Results Short CBC 08/01/25 08/02/25 Range/Units 14:30 06:14 WBC 15.67 H (4.8-10.8) K/ul Hgb 7.4 L 7.6 L (14.0-18.0) g/dl Hct 24.1 L 23.5 L (42.0-52.0) % Plt Count 213 (130-400) K/uL [facility] 08/02/25 06:17 Sodium 133 L Potassium 4.1 Chloride 101 Carbon Dioxide 24 BUN 30 H Creatinine 1.56 H Glucose 132 H Calcium 8.8 Medications Administered Current Inpatient Medications Acetaminophen (Acetaminophen 500 Mg Tab) 1,000 mg PO Q8H PRN PRN Reason: Pain or Fever Stop: 08/30/25 15:32 Last Admin: 08/01/25 06:24 Dose: 1,000 mg Amlodipine Besylate (Amlodipine Besylate 5 Mg Tab) 5 mg PO DAILY [facility] Stop: 08/30/25 08:59 Last Admin: 08/02/25 09:11 Dose: 5 mg Aspirin (Aspirin 81 Mg Ectab) 81 mg PO DAILY [facility] Stop: 08/30/25 08:59 Last Admin: 08/02/25 09:11 Dose: 81 mg Atorvastatin Calcium (Atorvastatin 40 Mg Tab) 80 mg PO DAILY [facility] Stop: 08/30/25 08:59 Last Admin: 08/02/25 09:11 Dose: 80 mg Avatrombopag (Avatrombopag Maleate 20 Mg Tab) 20 mg PO MoWeFr [facility] Stop: 08/31/25 09:36 Last Admin: 08/01/25 10:28 Dose: 20 mg Dapsone (Dapsone 25 Mg Tab) 100 mg PO DAILY [facility] Stop: 08/30/25 08:59 Last Admin: 08/02/25 09:11 Dose: 100 mg Dextrose (Dextrose 50% 50 Ml Syringe) 25 - 50 ml IV UD PRN; Protocol PRN Reason: Hypoglycemia Protocol Stop: 08/30/25 08:09 Glucagon (Glucagon For Inj 1 Mg Vial) 1 mg SQ UD PRN; Protocol PRN Reason: Hypoglycemia Protocol Stop: 08/30/25 08:09 Glucose (Glucose 40% Gel 15 Gm Tube) 15 - 30 gm PO UD PRN; Protocol PRN Reason: Hypoglycemia Protocol Stop: 08/30/25 08:09 Glucose (Glucose 10 Tab/Tube) 4 - 8 tab PO UD PRN; Protocol PRN Reason: Hypoglycemia Protocol Stop: 08/30/25 08:09 Heparin Sodium/Dextrose (Heparin 00940 Unit/500 Ml D5w) 25,000 units in 500 mls @ 20 mls/hr IV .Q24H [facility]; Protocol Stop: 08/30/25 11:59 Last Titration: 08/02/25 10:11 Dose: 1,000 units/hr, 20 mls/hr Amiodarone HCl/Dextrose (Nexterone / D5w) 360 mg in 200 mls @ 33.333 mls/hr IV ONE ONE Stop: 08/02/25 16:03 Last Admin: 08/02/25 10:24 Dose: 1 mg/min, 33.3 mls/hr Amiodarone HCl/Dextrose (Nexterone / D5w) 360 mg in 200 mls @ 16.667 mls/hr IV .Q12H [facility] Stop: 09/01/25 15:59 Insulin Aspart (Insulin Aspart Per Unit Charge) 0 units SC ACHS [facility] Stop: 08/31/25 21:59 Last Admin: 08/02/25 08:55 Dose: Not Given Insulin Glargine (Lantus Per Unit Charge) 5 units SC HS [facility] Stop: 08/30/25 20:59 Last Admin: 08/01/25 22:12 Dose: 5 units Metoprolol Tartrate (Metoprolol Tartrate 25 Mg Tab) 25 mg PO TID [facility] Stop: 08/31/25 13:59 Last Admin: 08/02/25 09:11 Dose: 25 mg Metoprolol Tartrate (Metoprolol Tartrate 1 Mg/Ml Vial) 5 mg IV Q6 PRN PRN Reason: Tachycardia Stop: 09/01/25 11:59 Miscellaneous (Carbohydrates For Hypoglycemia ) 15 - 30 gm PO UD PRN PRN Reason: Hypoglycemia Protocol Stop: 08/30/25 08:09 Mycophenolate Mofetil (Mycophenolate Mofetil 250 Mg Cap) 500 mg PO DAILY [facility] Stop: 08/30/25 08:59 Last Admin: 08/02/25 09:12 Dose: 500 mg Nitroglycerin (Nitroglycerin Sl 0.4 Mg/Tab Tab) 0.4 mg SL Q5M PRN PRN Reason: Chest Pain Stop: 08/30/25 08:09 Oxycodone HCl (Oxycodone Hcl Ir 5 Mg Tab (Immediate Release)) 5 mg PO Q6H PRN PRN Reason: Pain Stop: 10/13/25 08:32 Last Admin: 08/02/25 05:53 Dose: 5 mg Pantoprazole Sodium (Pantoprazole 40 Mg Tab) 40 mg PO DAILY [facility] Stop: 08/30/25 08:59 Last Admin: 08/02/25 09:12 Dose: 40 mg Polyethylene Glycol (Polyethylene (Miralax) 17 Gm Pack) 17 gm PO DAILY PRN PRN Reason: Constipation Stop: 08/30/25 08:09 Prednisone (Prednisone 10 Mg Tablet) 10 mg PO DAILY [facility] Stop: 08/30/25 08:59 Last Admin: 08/02/25 09:10 Dose: Not Given Warfarin Sodium (Warfarin Sod 5 Mg Tab) 5 mg PO DAILY@1600 [facility] Stop: 09/01/25 15:59
[2025-08-02] MEDS ORDERED: WARFARIN SOD 7.5 MG TAB PO SCH (16:00)
[2025-08-02] MEDS: AMIODARONE / D5W 360 MG/200 ML BAG IV SCH (16:17)
[2025-08-02] MEDS: WARFARIN SOD 5 MG TAB PO SCH (16:18)
[2025-08-02 17:46] LABS: ANTI-Xa, UFH(UnfractionatedHep 0.13 IU/ml (0.3-0.7)
--- NOTE | 2025-08-02 18:20 | Electrocardiogram Report ---
Test Reason : Blood Pressure : */* mmHG Vent. Rate : 110 BPM Atrial Rate : 110 BPM P-R Int : 138 ms QRS Dur : 92 ms QT Int : 308 ms P-R-T Axes : 65 -13 4 degrees QTcB Int : 416 ms Supraventricular tachycardia transitioning to sinus rhythm Minimal voltage criteria for LVH, may be normal variant Borderline ECG When compared with ECG of 01-Aug-2025 06:06, T wave inversion now evident in Inferior leads Confirmed by Wolfgang Gee [id number]) on 08/02/2025 6:20:31 PM Referred By: REFERRED SELF Confirmed By: Wolfgang Gee
[2025-08-03 00:55] LABS: ANTI-Xa, UFH(UnfractionatedHep 0.16 IU/ml (0.3-0.7)
[2025-08-03] MEDS ORDERED: Nursing to Pharmacy Communication SCH (01:30)
[2025-08-03] MEDS ORDERED: HEPARIN IV BOLUS 4,000 UNITS in SYRINGE 0 ML IV ONE (01:45)
[2025-08-03] MEDS: HEPARIN SOD (PORCINE) 1000 UNIT/ML IV STA ×2 (01:50→14:14)
[2025-08-03 08:12] LABS: ANTI-Xa, UFH(UnfractionatedHep 0.21 IU/ml (0.3-0.7)
[2025-08-03 08:23] LABS: Anion Gap 9.0 (3-11); Calcium 8.4 mg/dl (8.6-10.3); Carbon Dioxide 24.0 mmol/L (21-32); Chloride 102.0 mmol/L (98-107); Magnesium 2.0 mg/dl (1.7-2.4); Potassium 3.9 mmol/L (3.5-5.1); Sodium 135.0 mmol/L (136-145)
[2025-08-03 08:29] LABS: Blood Urea Nitrogen 26.0 mg/dl (6-23); Creatinine Clr Calc Pharmacy 75.1 ml/min; Glucose 185.0 mg/dl (70-99(Fasting))
--- NOTE | 2025-08-03 11:08 | Cardiology Progress Note ---
Date of Service August 03, 2025 Assessment & Plan (1) Atrial fibrillation with rapid ventricular response: (2) Lower extremity edema: (3) DVT (deep venous thrombosis): (4) Tachycardia: (5) Essential hypertension: Plan Complex 55-year-old male with extended hospitalization since April 2025 with ITP with course complicated venous thrombosis. Presented with edema secondary to venoocclusive disease with bilateral with bilateral deep venous thromboses of lower extremities. Currently tachycardic possibly in part due to demand issues with anemia. Recommendations treat underlying medical issues. Would titrate metoprolol to tartrate to 25 3 times daily. May consider transition to succinate depending on clinical course. Records reflect hypertension with losartan on hold. Will continue amlodipine but may aggravate current edema. No evidence of acute cardiac decompensation 08/02/2025 Patient's underlying presenting concerns being addressed anemia, extensive deep venous thromboses bilaterally with patient anticoag with heparin with plans to transition to warfarin. Patient this morning transition to atrial fibrillation with rapid ventricular response, initially minimally symptomatic. 1. Atrial fibrillation with rapid ventricular response: Patient initially in sinus tachycardia on presentation slowing somewhat with beta-julia therapy. This morning lapsed into atrial fibrillation. Expect some continued symptomatic complaints with significant elevation in heart rate despite beta-julia treatment. Will add IV amiodarone with bolus and drip. Assessment heart rate and rhythm, daily EKG.LV systolic function preserved on echocardiogram 2. Edema with intact peripheral pulses secondary to extensive bilateral DVT 08/03/2025 Stable over the past 24 hours following conversion to sinus rhythm mild pedal edema present consistent with deep venous thromboses. 1. Paroxysmal atrial fibrillation with rapid response: Now maintaining sinus plan stop IV amiodarone following current infusion bag. Begin amiodarone 200 mg twice daily Change metoprolol to tartrate to metoprolol succinate 25 mg twice per day EKG in a.m. Supplement potassium 10 mEq daily Chronic anticoagulation as already indicated Admission and Anticipated Discharge Date Admission Date: July 31, 2025 Subjective Patient seen and personally examined. Chart medications and telemetry reviewed. Patient converted to sinus rhythm early afternoon yesterday. Has maintained sinus rhythm since. No cardiac complaints other than persistent lower extremity edema secondary to deep venous thromboses no chest pains or dizziness. No bleeding difficulties Hemoglobin is stable at 7.6 Physical Exam Constitutional: no acute distress and not obese Eyes: PERRL, conjunctivae normal, anicteric sclerae ENMT: external ear and nose normal, oropharynx normal Neck: trachea midline, no thyromegaly Respiratory: no labored breathing Auscultation: + diminished lung sounds Cardiovascular: Rate/Rhythm: + tachycardic and + irregularly irregular Heart Sounds: no murmur Vessels: femoral pulses present and dorsalis pedis pulses present Extremities: + edema Gastrointestinal (Abdomen): normal bowel sounds, soft, nontender, no hepatosplenomegaly Results & Data Vital Signs (Past 12 Hours) Vital Signs Temp Pulse Pulse Resp BP Pulse Ox Pulse Ox 08/03/25 10:00 96 08/03/25 09:00 89 08/03/25 08:34 93 H 18 120/83 94 08/03/25 04:09 08/03/25 02:42 37.2 C 100 H 18 108/69 93 O2 Del Method O2 Del Method O2 Flow Rate O2 Flow Rate 08/03/25 10:00 Nasal Cannula 2 08/03/25 09:00 08/03/25 08:34 Nasal Cannula 2.0 08/03/25 04:09 Nasal Cannula 2 08/03/25 02:42 Nasal Cannula 2.0 Laboratory Results Laboratory Results - last 24 hr 08/02/25 08/02/25 08/02/25 16:21 17:07 22:13 PT INR Heparin Anti-Xa, Unfract 0.13 L Sodium Potassium Chloride Carbon Dioxide Anion Gap BUN Creatinine Est Cr Clr Drug Dosing eGFR BUN/Creatinine Ratio Glucose POC Glucose 200 H 194 H Calcium Magnesium 08/03/25 08/03/25 08/03/25 00:15 07:28 07:31 PT INR Heparin Anti-Xa, Unfract 0.16 L 0.21 L Sodium 135 L Potassium 3.9 Chloride 102 Carbon Dioxide 24 Anion Gap 9 BUN 26 H Creatinine 1.58 H Est Cr Clr Drug Dosing 75.1 eGFR 51.02 BUN/Creatinine Ratio 16.5 Glucose 185 H POC Glucose 212 H Calcium 8.4 L Magnesium 2.0 08/03/25 10:36 PT Pending INR Pending Heparin Anti-Xa, Unfract Sodium Potassium Chloride Carbon Dioxide Anion Gap BUN Creatinine Est Cr Clr Drug Dosing eGFR BUN/Creatinine Ratio Glucose POC Glucose Calcium Magnesium ECG Additional Comments: EKG 08/03/2025 Sinus rhythm with minimal voltage criteria for left hypertrophy QT corrected 459 PG Care Time/CCT Total # of Minutes Spent Total Time Spent with Patient: Total time spent is greater than 50% in coordination of care (as documented) at patient's floor/unit and/or counseling patient: Coding Level of Care Code 89060 SUB INP/OBS CARE 3/50MIN Diagnoses Atrial fibrillation with rapid ventricular response I48.91 Lower extremity edema R60.0 Chronic deep vein thrombosis (DVT) of both lower extremities, unspecified vein I82.503 DVT location: lower extremity Affected thrombotic vein of extremity: unspecified vein of extremity Chronicity: chronic Laterality: bilateral Tachycardia R00.0 Essential hypertension I10 (3) DVT (deep venous thrombosis) DVT location: lower extremity Affected thrombotic vein of extremity: unspecified vein of extremity Chronicity: chronic Laterality: bilateral Qualified Code(s): I82.503 - Chronic embolism and thrombosis of unspecified deep veins of lower extremity, bilateral
[2025-08-03 11:32] LABS: INR 1.0 (0.9-1.1); Prothrombin Time 10.9 Seconds (9.0-12.0)
[2025-08-03] MEDS: POTASSIUM CHLORIDE 10 MEQ TABCR PO SCH (11:45)
[2025-08-03 13:54] LABS: ANTI-Xa, UFH(UnfractionatedHep 0.19 IU/ml (0.3-0.7)
--- NOTE | 2025-08-03 15:26 | Hospitalist Progress Note ---
Date of Service August 03, 2025 Assessment & Plan (1) SILVA (dyspnea on exertion): Plan: 55-year-old male with past medical significant for type 2 diabetes, dyslipidemia, history of ITP, atopic dermatitis, tobacco use disorder, CVA, traumatic subdural hematoma, chronic anemia baseline hemoglobin 8-9, DVT status post IVC filter, on Eliquis, history of chronic left IJ thrombus, Klinefelter syndrome, bilateral adrenal nodules, thyroid nodules who was recently in the hospital for dizziness thought to be orthostatic and MAGDA thought to be from hypovolemia got discharged on 07/27/2025 comes back because of edema in lower extremities and pain in the lower extremities and also dyspnea on exertion. Patient denies any chest pain. Denies any headache. No blurred vision. No runny nose or sore throat. No cough. No nausea. No abdominal pain. Normal bowel and bladder movements. Denies any blood in the stools. In April patient was transferred from [facility] to [facility] for refractory ITP to IVIG and steroids and had a prolonged hospital stay until July 13, 2025. His hospital stay was complicated by multiple DVTs status post IVC filter placement because of low platelets and also ischemic stroke and subdural hematoma, non-ST left [place], hospital-acquired pneumonia and incidentally on bone marrow biopsy also found to have Klinefelter syndrome. During the stay in [facility] he also required multiple blood transfusions secondary to recurrent severe epistaxis also developed submucosal hematomas and necrotic tongue hematoma secondary to severe thrombocytopenia which is resolved. Paroxysmal atrial fibrillation with rapid response Spontaneously converted to sinus --ECHO: Left ventricle systolic function is normal. EF 60 to 65%. Grade 1 diastolic dysfunction. Mild pulmonic valve regurgitation --Normal TSH IV amiodarone discontinued Start PO amiodarone 200 mg twice a day Continue metoprolol succinate 25 mg twice a day Replace electrolytes as needed Appreciate cardiology input Continue IV heparin until INR is therapeutic Continue Coumadin, monitor INR Acute DVT with superficial phlebitis IVC filter clot H/O DVT status post IVC filter and also on Eliquis --Chest CTA:No pulmonary emboli identified although segmental and subsegmental pulmonary arteries suboptimally assessed due to artifact. Apparent 1.2 cm filling defect within the proximal SVC at the confluence of the brachiocephalic veins, decreased when compared to CT of April 21, 2025. This may be artifactual however a small amount of thrombus could appear similar. A mass is considered less likely. No consolidation to suggest pneumonia. --Arterial Doppler:No hemodynamically significant stenosis or occlusion in either lower extremity. --Venous Doppler: Bilateral occlusive deep venous thrombosis from each groin to each knee. Poorly evaluated deep veins of each calf. Bilateral greater saphenous vein thrombosis. --CT ABD:IVC filter insitu with distended iliac veins with retroperitoneal fat stranding- raising the possibility of thrombus - new finding. Advise contrast enhanced CT for further evaluation. -- Failed Eliquis Prior hospitalist discussed with hematology : Recommended to discontinue Eliquis and start on Coumadin Appreciate vascular surgery input Monitor INR 1.0 today Continue IV heparin and Coumadin until INR is therapeutic Needs follow-up with Coumadin clinic on discharge Acute kidney injury Creatinine slowly improving Monitor renal function Avoid nephrotoxic agents as able H/O ITP On CellCept, dapsone and Doptelet Ongoing steroid taper currently on prednisone 10 mg daily Monitor platelet count Chronic anemia S/P 1 unit PRBCs Monitor CBC No acute bleeding issues DM II HbA1c 5.9 Continue insulin per protocol Monitor blood glucose levels Hypertension Holding losartan for MAGDA Continue amlodipine and metoprolol Monitor blood pressure GERD Continue Protonix Chronic leukocytosis Likely due to prednisone use Monitor History of CVA Continue aspirin, statin Morbid Obesity BMI 41 Counselling DVT Px: IV Heparin+ Coumadin CODE STATUS Full code Admission and Anticipated Discharge Date Admission Date: July 31, 2025 Subjective Patient is seen and examined at bedside Patient converted to sinus rhythm spontaneously yesterday Reports having lower extremity edema Denies any chest pain, dizziness, nausea, vomiting, abdominal pain Review of Systems Review of Systems: All systems reviewed & are unremarkable except as noted in Subjective Physical Exam Physical Exam: Physical Exam: Vitals signs as noted above General Appearance:Obese, no apparent distress Head: normocephalic, Atraumatic Eyes: normal inspection, EOMI Neck: supple, Trachea midline Respiratory/Chest: Decreased breath sounds, CTA, No accessory muscle use Cardiovascular: S1, S2, no murmur Abdomen/GI:Soft, Non tender, Bowel sounds present Extremities/Musculoskeletal:normal inspection, 1+ B/L LE edema Neurologic/Psych:AAOX3, grossly no focal neurological deficits Skin: normal color, warm Results & Data Results & Data Vital Signs (Past 12 Hours) Vital Signs Temp Pulse Pulse Resp BP Pulse Ox Pulse Ox 08/03/25 13:49 89 08/03/25 11:18 36.8 C 77 19 98/78 L 97 08/03/25 10:00 96 08/03/25 09:00 89 08/03/25 08:34 93 H 18 120/83 94 08/03/25 04:09 O2 Del Method O2 Del Method O2 Flow Rate O2 Flow Rate 08/03/25 13:49 08/03/25 11:18 Nasal Cannula 2.0 08/03/25 10:00 Nasal Cannula 2 08/03/25 09:00 08/03/25 08:34 Nasal Cannula 2.0 08/03/25 04:09 Nasal Cannula 2 Laboratory Results BMP 08/03/25 07:28 Sodium 135 L Potassium 3.9 Chloride 102 Carbon Dioxide 24 BUN 26 H Creatinine 1.58 H Glucose 185 H Calcium 8.4 L
[2025-08-03] MEDS: WARFARIN SOD 7.5 MG TAB PO SCH (16:56)
[2025-08-03] MEDS: METOPROLOL SUCC 25MG EXT REL TAB PO SCH (16:58)
--- NOTE | 2025-08-03 18:26 | Electrocardiogram Report ---
Test Reason : Blood Pressure : */* mmHG Vent. Rate : 96 BPM Atrial Rate : 96 BPM P-R Int : 138 ms QRS Dur : 94 ms QT Int : 364 ms P-R-T Axes : 49 -7 18 degrees QTcB Int : 459 ms Normal sinus rhythm Minimal voltage criteria for LVH, may be normal variant Borderline ECG When compared with ECG of 02-Aug-2025 07:57, Premature supraventricular complexes are no longer Present Confirmed by Wolfgang Gee ([id number] on 08/03/2025 6:26:24 PM Referred By: REFERRED SELF Confirmed By: Wolfgang Gee
[2025-08-03 19:36] LABS: ANTI-Xa, UFH(UnfractionatedHep 0.32 IU/ml (0.3-0.7)
[2025-08-03] MEDS: AMIODARONE 200 MG TAB PO SCH (21:21)
[2025-08-03] MEDS: AMIODARONE DRIP - STOP ORDER ONE (21:21)
[2025-08-04 06:16] LABS: Hematocrit (blood only) 21.9 % (42.0-52.0); Hemoglobin 7.1 g/dl (14.0-18.0); Immature Granulocytes # (auto) 0.33 K/uL (0.01-0.20); Immature Granulocytes % (auto) 2.3 %; Mean Corpuscular Hemoglobin 25.7 pg (25.0-34.0); Mean Corpuscular Volume 79.3 fL (80.0-100.0); Platelet Count 263 K/uL (130-400); RDW Standard Deviation 60.2 fL (36.4-46.3); Red Blood Count 2.76 M/uL (4.70-6.10); White Blood Count 14.17 K/ul (4.8-10.8)
[2025-08-04 06:35] LABS: Anion Gap 10.0 (3-11); Blood Urea Nitrogen 23.0 mg/dl (6-23); Calcium 8.6 mg/dl (8.6-10.3); Carbon Dioxide 24.0 mmol/L (21-32); Chloride 102.0 mmol/L (98-107); Creatinine Clr Calc Pharmacy 80.2 ml/min; Glucose 131.0 mg/dl (70-99(Fasting)); Magnesium 1.7 mg/dl (1.7-2.4); Potassium 3.7 mmol/L (3.5-5.1); Sodium 136.0 mmol/L (136-145)
[2025-08-04 06:40] LABS: ANTI-Xa, UFH(UnfractionatedHep 0.20 IU/ml (0.3-0.7)
[2025-08-04 06:41] LABS: Anisocytosis Present; Tear Drop Cells 1+
[2025-08-04 09:00] LABS: INR 1.1 (0.9-1.1); Prothrombin Time 11.4 Seconds (9.0-12.0)
--- NOTE | 2025-08-04 12:17 | Cardiology Progress Note ---
Date of Service August 04, 2025 Assessment & Plan (1) Atrial fibrillation with rapid ventricular response: (2) Lower extremity edema: (3) DVT (deep venous thrombosis): (4) Tachycardia: (5) Essential hypertension: Plan Complex 55-year-old male with extended hospitalization since April 2025 with ITP with course complicated venous thrombosis. Presented with edema secondary to venoocclusive disease with bilateral with bilateral deep venous thromboses of lower extremities. Currently tachycardic possibly in part due to demand issues with anemia. Recommendations treat underlying medical issues. Would titrate metoprolol to tartrate to 25 3 times daily. May consider transition to succinate depending on clinical course. Records reflect hypertension with losartan on hold. Will continue amlodipine but may aggravate current edema. No evidence of acute cardiac decompensation 08/02/2025 Patient's underlying presenting concerns being addressed anemia, extensive deep venous thromboses bilaterally with patient anticoag with heparin with plans to transition to warfarin. Patient this morning transition to atrial fibrillation with rapid ventricular response, initially minimally symptomatic. 1. Atrial fibrillation with rapid ventricular response: Patient initially in sinus tachycardia on presentation slowing somewhat with beta-julia therapy. This morning lapsed into atrial fibrillation. Expect some continued symptomatic complaints with significant elevation in heart rate despite beta-julia treatment. Will add IV amiodarone with bolus and drip. Assessment heart rate and rhythm, daily EKG.LV systolic function preserved on echocardiogram 2. Edema with intact peripheral pulses secondary to extensive bilateral DVT 08/03/2025 Stable over the past 24 hours following conversion to sinus rhythm mild pedal edema present consistent with deep venous thromboses. 1. Paroxysmal atrial fibrillation with rapid response: Now maintaining sinus plan stop IV amiodarone following current infusion bag. Begin amiodarone 200 mg twice daily Change metoprolol to tartrate to metoprolol succinate 25 mg twice per day EKG in a.m. Supplement potassium 10 mEq daily Chronic anticoagulation as already indicated Admission and Anticipated Discharge Date Admission Date: July 31, 2025 Review of Systems Review of Systems: All systems reviewed & are unremarkable except as noted in Subjective Physical Exam Constitutional: no acute distress and not obese Eyes: PERRL, conjunctivae normal, anicteric sclerae ENMT: external ear and nose normal, oropharynx normal Neck: trachea midline, no thyromegaly Respiratory: no labored breathing Auscultation: + diminished lung sounds Cardiovascular: Rate/Rhythm: + tachycardic and + irregularly irregular Heart Sounds: no murmur Vessels: femoral pulses present and dorsalis pedis pulses present Extremities: + edema Gastrointestinal (Abdomen): normal bowel sounds, soft, nontender, no he patosplenomegaly Results & Data Vital Signs (Past 12 Hours) Vital Signs Temp Pulse Pulse Resp BP BP Pulse Ox 08/04/25 11:06 37.2 C 97 H 18 108/74 92 08/04/25 10:00 08/04/25 08:16 98 H 20 127/82 97 08/04/25 05:53 97 H 08/04/25 02:48 36.8 C 98 H 18 102/64 96 O2 Del Method O2 Del Method O2 Flow Rate O2 Flow Rate 08/04/25 11:06 Room Air 08/04/25 10:00 Nasal Cannula 2 08/04/25 08:16 Room Air 08/04/25 05:53 08/04/25 02:48 Nasal Cannula 2.0 Laboratory Results Laboratory Results - last 24 hr 08/03/25 08/03/25 08/03/25 13:09 16:09 18:39 WBC RBC Hgb Hct MCV MCH MCHC RDW Std Deviation RDW Coeff of Johnny Plt Count MPV Immature Gran % (Auto) Neut % (Auto) Lymph % (Auto) Stevens % (Auto) Eos % (Auto) Baso % (Auto) Neut # (Auto) Lymph # (Auto) Stevens # (Auto) Eos # (Auto) Baso # (Auto) Immature Gran # (Auto) Absolute Nucleated RBC Nucleated RBC % (auto) Anisocytosis Tear Drop Cells PT INR Heparin Anti-Xa, Unfract 0.19 L 0.32 Sodium Potassium Chloride Carbon Dioxide Anion Gap BUN Creatinine Est Cr Clr Drug Dosing eGFR BUN/Creatinine Ratio Glucose POC Glucose 187 H Calcium Magnesium 08/03/25 08/04/25 08/04/25 20:44 05:32 07:18 WBC 14.17 H RBC 2.76 L Hgb 7.1 L Hct 21.9 L MCV 79.3 L MCH 25.7 MCHC 32.4 RDW Std Deviation 60.2 H RDW Coeff of Johnny 20.6 H Plt Count 263 MPV 9.5 Immature Gran % (Auto) 2.3 Neut % (Auto) 75.5 Lymph % (Auto) 6.5 Stevens % (Auto) 13.4 Eos % (Auto) 1.9 Baso % (Auto) 0.4 Neut # (Auto) 10.69 H Lymph # (Auto) 0.92 L Stevens # (Auto) 1.90 H Eos # (Auto) 0.27 Baso # (Auto) 0.06 Immature Gran # (Auto) 0.33 H Absolute Nucleated RBC 0.03 Nucleated RBC % (auto) 0.2 Anisocytosis Present Tear Drop Cells 1+ PT 11.4 INR 1.1 Heparin Anti-Xa, Unfract 0.20 L Sodium 136 Potassium 3.7 Chloride 102 Carbon Dioxide 24 Anion Gap 10 BUN 23 Creatinine 1.48 H Est Cr Clr Drug Dosing 80.2 eGFR 55.18 BUN/Creatinine Ratio 15.5 Glucose 131 H POC Glucose 140 H 147 H Calcium 8.6 Magnesium 1.7 08/04/25 11:05 WBC RBC Hgb Hct MCV MCH MCHC RDW Std Deviation RDW Coeff of Johnny Plt Count MPV Immature Gran % (Auto) Neut % (Auto) Lymph % (Auto) Stevens % (Auto) Eos % (Auto) Baso % (Auto) Neut # (Auto) Lymph # (Auto) Stevens # (Auto) Eos # (Auto) Baso # (Auto) Immature Gran # (Auto) Absolute Nucleated RBC Nucleated RBC % (auto) Anisocytosis Tear Drop Cells PT INR Heparin Anti-Xa, Unfract Sodium Potassium Chloride Carbon Dioxide Anion Gap BUN Creatinine Est Cr Clr Drug Dosing eGFR BUN/Creatinine Ratio Glucose POC Glucose 152 H Calcium Magnesium PG Care Time/CCT Total # of Minutes Spent Total Time Spent with Patient: Total time spent is greater than 50% in coordination of care (as documented) at patient's floor/unit and/or counseling patient: Coding Level of Care Code 50425 SUB INP/OBS CARE 3/50MIN Diagnoses Atrial fibrillation with rapid ventricular response I48.91 Lower extremity edema R60.0 Chronic deep vein thrombosis (DVT) of both lower extremities, unspecified vein I82.503 DVT location: lower extremity Affected thrombotic vein of extremity: unspecified vein of extremity Chronicity: chronic Laterality: bilateral Tachycardia R00.0 Essential hypertension I10 (3) DVT (deep venous thrombosis) DVT location: lower extremity Affected thrombotic vein of extremity: unspecified vein of extremity Chronicity: chronic Laterality: bilateral Qualified Code(s): I82.503 - Chronic embolism and thrombosis of unspecified deep veins of lower extremity, bilateral
--- NOTE | 2025-08-04 12:25 | Cardiology Progress Note ---
Date of Service August 04, 2025 Assessment & Plan (1) Atrial fibrillation with rapid ventricular response: (2) Lower extremity edema: (3) DVT (deep venous thrombosis): (4) Tachycardia: (5) Essential hypertension: Plan Complex 55-year-old male with extended hospitalization since April 2025 with ITP with course complicated venous thrombosis. Presented with edema secondary to venoocclusive disease with bilateral with bilateral deep venous thromboses of lower extremities. Currently tachycardic possibly in part due to demand issues with anemia. Recommendations treat underlying medical issues. Would titrate metoprolol to tartrate to 25 3 times daily. May consider transition to succinate depending on clinical course. Records reflect hypertension with losartan on hold. Will continue amlodipine but may aggravate current edema. No evidence of acute cardiac decompensation 08/02/2025 Patient's underlying presenting concerns being addressed anemia, extensive deep venous thromboses bilaterally with patient anticoag with heparin with plans to transition to warfarin. Patient this morning transition to atrial fibrillation with rapid ventricular response, initially minimally symptomatic. 1. Atrial fibrillation with rapid ventricular response: Patient initially in sinus tachycardia on presentation slowing somewhat with beta-julia therapy. This morning lapsed into atrial fibrillation. Expect some continued symptomatic complaints with significant elevation in heart rate despite beta-julia treatment. Will add IV amiodarone with bolus and drip. Assessment heart rate and rhythm, daily EKG.LV systolic function preserved on echocardiogram 2. Edema with intact peripheral pulses secondary to extensive bilateral DVT 08/03/2025 Stable over the past 24 hours following conversion to sinus rhythm mild pedal edema present consistent with deep venous thromboses. 1. Paroxysmal atrial fibrillation with rapid response: Now maintaining sinus plan stop IV amiodarone following current infusion bag. Begin amiodarone 200 mg twice daily Change metoprolol to tartrate to metoprolol succinate 25 mg twice per day EKG in a.m. Supplement potassium 10 mEq daily Chronic anticoagulation as already indicated 08/04/2025 Patient remains in sinus rhythm no further arrhythmias mild pedal edema persistent secondary to deep venous thrombosis but no signs of volume overload. 1. Paroxysmal atrial fibrillation plan continue amiodarone 200 mg twice per day. Increase metoprolol succinate to 37.5 mg twice per day for heart rate control. Hold amlodipine to allow for blood pressure changes. Deep venous thrombosis, ITP per primary service. Admission and Anticipated Discharge Date Admission Date: July 31, 2025 Subjective Patient seen and examined, chart, medications, telemetry reviewed. No acute complaints with mild pedal edema still present. Has remained in sinus Review of Systems Review of Systems: All systems reviewed & are unremarkable except as noted in Subjective Physical Exam Constitutional: no acute distress and not obese Eyes: PERRL, conjunctivae normal, anicteric sclerae ENMT: external ear and nose normal, oropharynx normal Neck: trachea midline, no thyromegaly Respiratory: no labored breathing Auscultation: + diminished lung sounds Cardiovascular: Rate/Rhythm: + tachycardic and + irregularly irregular Heart Sounds: no murmur Vessels: femoral pulses present and dorsalis pedis pulses present Extremities: + edema Gastrointestinal (Abdomen): normal bowel sounds, soft, nontender, no hepatosplenomegaly Results & Data Vital Signs (Past 12 Hours) Vital Signs Temp Pulse Pulse Resp BP BP Pulse Ox 08/04/25 11:06 37.2 C 97 H 18 108/74 92 08/04/25 10:00 08/04/25 08:16 98 H 20 127/82 97 08/04/25 05:53 97 H 08/04/25 02:48 36.8 C 98 H 18 102/64 96 O2 Del Method O2 Del Method O2 Flow Rate O2 Flow Rate 08/04/25 11:06 Room Air 08/04/25 10:00 Nasal Cannula 2 08/04/25 08:16 Room Air 08/04/25 05:53 08/04/25 02:48 Nasal Cannula 2.0 PG Care Time/CCT Total # of Minutes Spent Total Time Spent with Patient: Total time spent is greater than 50% in coordination of care (as documented) at patient's floor/unit and/or counseling patient: Coding Level of Care Code 38782 SUB INP/OBS CARE 3/50MIN Diagnoses Atrial fibrillation with rapid ventricular response I48.91 Lower extremity edema R60.0 Chronic deep vein thrombosis (DVT) of both lower extremities, unspecified vein I82.503 DVT location: lower extremity Affected thrombotic vein of extremity: unspecified vein of extremity Chronicity: chronic Laterality: bilateral Tachycardia R00.0 Essential hypertension I10 (3) DVT (deep venous thrombosis) DVT location: lower extremity Affected thrombotic vein of extremity: unspecified vein of extremity Chronicity: chronic Laterality: bilateral Qualified Code(s): I82.503 - Chronic embolism and thrombosis of unspecified deep veins of lower extremity, bilateral
[2025-08-04] MEDS: MAGNESIUM CHLORIDE W/CALCIUM 64MG DELAYED REL TAB PO SCH (13:10)
--- NOTE | 2025-08-04 14:17 | Hospitalist Progress Note ---
Date of Service August 04, 2025 Assessment & Plan (1) SILVA (dyspnea on exertion): Plan: 55-year-old male with past medical significant for type 2 diabetes, dyslipidemia, history of ITP, atopic dermatitis, tobacco use disorder, CVA, traumatic subdural hematoma, chronic anemia baseline hemoglobin 8-9, DVT status post IVC filter, on Eliquis, history of chronic left IJ thrombus, Klinefelter syndrome, bilateral adrenal nodules, thyroid nodules who was recently in the hospital for dizziness thought to be orthostatic and MAGDA thought to be from hypovolemia got discharged on 07/27/2025 comes back because of edema in lower extremities and pain in the lower extremities and also dyspnea on exertion. Patient denies any chest pain. Denies any headache. No blurred vision. No runny nose or sore throat. No cough. No nausea. No abdominal pain. Normal bowel and bladder movements. Denies any blood in the stools. In April patient was transferred from [facility] to [facility] for refractory ITP to IVIG and steroids and had a prolonged hospital stay until July 13, 2025. His hospital stay was complicated by multiple DVTs status post IVC filter placement because of low platelets and also ischemic stroke and subdural hematoma, non-ST left [place], hospital-acquired pneumonia and incidentally on bone marrow biopsy also found to have Klinefelter syndrome. During the stay in [facility] he also required multiple blood transfusions secondary to recurrent severe epistaxis also developed submucosal hematomas and necrotic tongue hematoma secondary to severe thrombocytopenia which is resolved. Paroxysmal atrial fibrillation with rapid response Spontaneously converted to sinus --ECHO: Left ventricle systolic function is normal. EF 60 to 65%. Grade 1 diastolic dysfunction. Mild pulmonic valve regurgitation --Normal TSH IV amiodarone discontinued Continue amiodarone 200 mg twice a day Increased metoprolol succinate to 37.5 mg twice a day Replace electrolytes as needed Appreciate cardiology input Continue IV heparin until INR is therapeutic Continue Coumadin, monitor INR INR 1.1 today Acute DVT with superficial phlebitis IVC filter clot H/O DVT status post IVC filter and also on Eliquis --Chest CTA:No pulmonary emboli identified although segmental and subsegmental pulmonary arteries suboptimally assessed due to artifact. Apparent 1.2 cm filling defect within the proximal SVC at the confluence of the brachiocephalic veins, decreased when compared to CT of April 21, 2025. This may be artifactual however a small amount of thrombus could appear similar. A mass is considered less likely. No consolidation to suggest pneumonia. --Arterial Doppler:No hemodynamically significant stenosis or occlusion in either lower extremity. --Venous Doppler: Bilateral occlusive deep venous thrombosis from each groin to each knee. Poorly evaluated deep veins of each calf. Bilateral greater saphenous vein thrombosis. --CT ABD:IVC filter insitu with distended iliac veins with retroperitoneal fat stranding- raising the possibility of thrombus - new finding. Advise contrast enhanced CT for further evaluation. -- Failed Eliquis Prior hospitalist discussed with hematology : Recommended to discontinue Eliquis and start on Coumadin Appreciate vascular surgery input Continue IV heparin and Coumadin until INR is therapeutic Needs follow-up with Coumadin clinic on discharge Acute kidney injury Creatinine 1.4 today Monitor renal function Avoid nephrotoxic agents as able Renal function improving H/O ITP On CellCept, dapsone and Doptelet Ongoing steroid taper currently on prednisone 10 mg daily Monitor platelet count Chronic anemia S/P 1 unit PRBCs Monitor CBC No acute bleeding issues Will recheck H&H tomorrow DM II HbA1c 5.9 Continue insulin per protocol Monitor blood glucose levels Hypertension Holding losartan for MAGDA Hold amlodipine for now Continue metoprolol as above Monitor blood pressure GERD Continue Protonix Chronic leukocytosis Likely due to prednisone use Monitor History of CVA Continue aspirin, statin Morbid Obesity BMI 41 Counselling DVT Px: IV Heparin+ Coumadin CODE STATUS Full code Admission and Anticipated Discharge Date Admission Date: July 31, 2025 Subjective Patient is seen and examined at bedside Complains of leg edema associated with some pain Remains in sinus Denies any chest pain, dizziness, nausea, vomiting, abdominal pain Prefers to be weaned off of supplemental oxygen Review of Systems Review of Systems: All systems reviewed & are unremarkable except as noted in Subjective Physical Exam Physical Exam: Physical Exam: Vitals signs as noted above General Appearance:Obese, no apparent distress Head: normocephalic, Atraumatic Eyes: normal inspection, EOMI Neck: supple, Trachea midline Respiratory/Chest: Decreased breath sounds, CTA, No accessory muscle use Cardiovascular: S1, S2, no murmur Abdomen/GI:Soft, Non tender, Bowel sounds present Extremities/Musculoskeletal:normal inspection, 1+ B/L LE edema Neurologic/Psych:AAOX3, grossly no focal neurological deficits Skin: normal color, warm Results & Data Results & Data Vital Signs (Past 12 Hours) Vital Signs Temp Pulse Pulse Resp BP BP Pulse Ox 08/04/25 11:06 37.2 C 97 H 18 108/74 92 08/04/25 10:00 08/04/25 08:16 98 H 20 127/82 97 08/04/25 05:53 97 H 08/04/25 02:48 36.8 C 98 H 18 102/64 96 O2 Del Method O2 Del Method O2 Flow Rate O2 Flow Rate 08/04/25 11:06 Room Air 08/04/25 10:00 Nasal Cannula 2 08/04/25 08:16 Room Air 08/04/25 05:53 08/04/25 02:48 Nasal Cannula 2.0 Laboratory Results Short CBC 08/04/25 Range/Units 05:32 WBC 14.17 H (4.8-10.8) K/ul Hgb 7.1 L (14.0-18.0) g/dl Hct 21.9 L (42.0-52.0) % Plt Count 263 (130-400) K/uL BMP 08/04/25 05:32 Sodium 136 Potassium 3.7 Chloride 102 Carbon Dioxide 24 BUN 23 Creatinine 1.48 H Glucose 131 H Calcium 8.6
[2025-08-04] MEDS: METOPROLOL SUCC 25MG EXT REL TAB PO SCH (17:17)
[2025-08-04 20:25] LABS: ANTI-Xa, UFH(UnfractionatedHep 0.19 IU/ml (0.3-0.7)
[2025-08-04] MEDS: HEPARIN SOD (PORCINE) 1000 UNIT/ML IV STA (23:05)
[2025-08-05 04:14] LABS: Anion Gap 9.0 (3-11); Blood Urea Nitrogen 20.0 mg/dl (6-23); Calcium 8.6 mg/dl (8.6-10.3); Carbon Dioxide 25.0 mmol/L (21-32); Chloride 102.0 mmol/L (98-107); Creatinine Clr Calc Pharmacy 76.6 ml/min; Glucose 124.0 mg/dl (70-99(Fasting)); Magnesium 1.7 mg/dl (1.7-2.4); Potassium 3.8 mmol/L (3.5-5.1); Sodium 136.0 mmol/L (136-145)
[2025-08-05 04:20] LABS: Hematocrit (blood only) 21.4 % (42.0-52.0); Hemoglobin 6.5 g/dl (14.0-18.0)
[2025-08-05 04:23] LABS: ANTI-Xa, UFH(UnfractionatedHep 0.31 IU/ml (0.3-0.7)
--- NOTE | 2025-08-05 04:23 | Communication Note ---
Date of Service: August 05, 2025 Made aware by RN of [email or web address] hemoglobin of 6.5. (From 7.1 (08/05) from 7.6 (08/02) No overt bleeding as per RN. AP Progressive anemia Rule out hemolytic anemia given dapsone Rx Transfuse PRBC to maintain hemoglobin of at least 8 given CVD history Hemolytic anemia workup, hold dapsone for now Will relay to AM provider.
[2025-08-05] MEDS ORDERED: SODIUM CHLORIDE 0.9% 100 ML IV PRN (04:30)
[2025-08-05 04:32] LABS: INR 1.2 (0.9-1.1); Prothrombin Time 13.0 Seconds (9.0-12.0)
[2025-08-05 05:17] LABS: Alanine Aminotransferase 11.0 U/L (7-52); Albumin Globulin Ratio 0.8 (0.9-2); Albumin Level 3.2 gm/dl (3.4-5.0); Alkaline Phosphatase 117.0 U/L (34-104); Anion Gap 11.0 (3-11); Bilirubin,Total 0.5 mg/dl (0.2-1.0); Blood Urea Nitrogen 20.0 mg/dl (6-23); Calcium 8.8 mg/dl (8.6-10.3); Carbon Dioxide 24.0 mmol/L (21-32); Chloride 101.0 mmol/L (98-107); Creatinine Clr Calc Pharmacy 79.7 ml/min; Globulin 3.9 gm/dl (2.5-4.0); Glucose 144.0 mg/dl (70-99(Fasting)); Potassium 3.8 mmol/L (3.5-5.1); Sodium 136.0 mmol/L (136-145); Total Protein 7.1 gm/dl (6.0-8.3)
[2025-08-05 05:36] LABS: INR 1.3 (0.9-1.1); Prothrombin Time 13.1 Seconds (9.0-12.0)
[2025-08-05 05:56] LABS: Platelet Count 291 K/uL (130-400); White Blood Count 13.97 K/ul (4.8-10.8)
[2025-08-05 05:58] LABS: Immature Granulocytes # (auto) 0.30 K/uL (0.01-0.20); Immature Granulocytes % (auto) 2.1 %; Polychromasia 1+; Reticulocytes # 0.030 10^6/uL (0.020-0.100)
[2025-08-05] MEDS: METOPROLOL SUCC 25MG EXT REL TAB PO ONE (09:40)
--- NOTE | 2025-08-05 10:19 | Cardiology Progress Note ---
Date of Service August 05, 2025 Assessment & Plan (1) Atrial fibrillation with rapid ventricular response: (2) Lower extremity edema: (3) DVT (deep venous thrombosis): (4) Tachycardia: (5) Essential hypertension: Plan Complex 55-year-old male with extended hospitalization since April 2025 with ITP with course complicated venous thrombosis. Presented with edema secondary to venoocclusive disease with bilateral with bilateral deep venous thromboses of lower extremities. Currently tachycardic possibly in part due to demand issues with anemia. Recommendations treat underlying medical issues. Would titrate metoprolol to tartrate to 25 3 times daily. May consider transition to succinate depending on clinical course. Records reflect hypertension with losartan on hold. Will continue amlodipine but may aggravate current edema. No evidence of acute cardiac decompensation 08/02/2025 Patient's underlying presenting concerns being addressed anemia, extensive deep venous thromboses bilaterally with patient anticoag with heparin with plans to transition to warfarin. Patient this morning transition to atrial fibrillation with rapid ventricular response, initially minimally symptomatic. 1. Atrial fibrillation with rapid ventricular response: Patient initially in sinus tachycardia on presentation slowing somewhat with beta-julia therapy. This morning lapsed into atrial fibrillation. Expect some continued symptomatic complaints with significant elevation in heart rate despite beta-julia treatment. Will add IV amiodarone with bolus and drip. Assessment heart rate and rhythm, daily EKG.LV systolic function preserved on echocardiogram 2. Edema with intact peripheral pulses secondary to extensive bilateral DVT 08/03/2025 Stable over the past 24 hours following conversion to sinus rhythm mild pedal edema present consistent with deep venous thromboses. 1. Paroxysmal atrial fibrillation with rapid response: Now maintaining sinus plan stop IV amiodarone following current infusion bag. Begin amiodarone 200 mg twice daily Change metoprolol to tartrate to metoprolol succinate 25 mg twice per day EKG in a.m. Supplement potassium 10 mEq daily Chronic anticoagulation as already indicated 08/04/2025 Patient remains in sinus rhythm no further arrhythmias mild pedal edema persistent secondary to deep venous thrombosis but no signs of volume overload. 1. Paroxysmal atrial fibrillation plan continue amiodarone 200 mg twice per day. Increase metoprolol succinate to 37.5 mg twice per day for heart rate control. Hold amlodipine to allow for blood pressure changes. Deep venous thrombosis, ITP per primary service. 08/05/2025. Stable from cardiac standpoint heart rates trending towards better control no further arrhythmias. Blood pressure controlled. 1. Paroxysmal atrial fibrillation: Has been maintaining sinus since initiation of amiodarone therapy. Plan continue amiodarone 200 mg twice per day while in hospital with reduction to once per day on discharge Metoprolol succinate increased to 50 mg twice per day for heart rate and rhythm control, aid in blood pressure management 2. Edema secondary to deep venous thromboses possible contributing factor of amlodipinediscontinued 3. DVT/ITP/anemia per primary service Will sign off call for additional questions Recommend cardiology follow-up 1 month Admission and Anticipated Discharge Date Admission Date: July 31, 2025 Subjective Patient was seen and personally examined. Chart, medications, telemetry reviewed. No cardiac complaints though more anemic this morning per review of records. No arrhythmias on telemetry with patient maintaining sinus and sinus tachycardia. Lower extremity edema slightly improved. No focal tenderness with intact arterial pulses Review of Systems Review of Systems: All systems reviewed & are unremarkable except as noted in Subjective Physical Exam Constitutional: no acute distress and not obese Eyes: PERRL, conjunctivae normal, anicteric sclerae ENMT: external ear and nose normal, oropharynx normal Neck: trachea midline, no thyromegaly Respiratory: no labored breathing Auscultation: + diminished lung sounds Cardiovascular: Rate/Rhythm: regular rate and regular rhythm Heart Sounds: no murmur Vessels: femoral pulses present and dorsalis pedis pulses present Extremities: + edema Gastrointestinal (Abdomen): normal bowel sounds, soft, nontender, no hepatosplenomegaly Results & Data Vital Signs (Past 12 Hours) Vital Signs Temp Pulse Pulse Resp BP BP Pulse Ox 08/05/25 07:34 37.0 C 90 19 116/81 94 08/05/25 07:00 83 08/05/25 02:01 37.0 C 89 20 116/73 94 08/05/25 00:00 95 H 08/04/25 22:29 36.9 C 86 16 119/76 95 O2 Del Method 08/05/25 07:34 Room Air 08/05/25 07:00 08/05/25 02:01 Room Air 08/05/25 00:00 08/04/25 22:29 Room Air Laboratory Results Laboratory Results - last 24 hr 08/04/25 08/04/25 08/04/25 11:05 16:27 19:42 WBC Hgb Hct Plt Count Immature Gran % (Auto) Neut % (Auto) Lymph % (Auto) Winston % (Auto) Eos % (Auto) Baso % (Auto) Reticulocyte % (Auto) Neut # (Auto) Lymph # (Auto) Winston # (Auto) Eos # (Auto) Baso # (Auto) Reticulocyte # Immature Gran # (Auto) Absolute Nucleated RBC Nucleated RBC % (auto) Polychromasia Haptoglobin PT INR Heparin Anti-Xa, Unfract 0.19 L Sodium Potassium Chloride Carbon Dioxide Anion Gap BUN Creatinine Est Cr Clr Drug Dosing eGFR BUN/Creatinine Ratio Glucose POC Glucose 152 H 181 H Calcium Magnesium Total Bilirubin AST ALT Alkaline Phosphatase Lactate Dehydrogenase Total Protein Albumin Globulin Albumin/Globulin Ratio Blood Type Antibody Screen Antibody Identification Antibody ID Comment Crossmatch 08/04/25 08/05/25 08/05/25 20:32 03:13 04:47 WBC 13.97 H Hgb 6.5 L* Hct 21.4 L Plt Count 291 Immature Gran % (Auto) 2.1 Neut % (Auto) 75.7 Lymph % (Auto) 8.3 Winston % (Auto) 11.6 Eos % (Auto) 2.0 Baso % (Auto) 0.3 Reticulocyte % (Auto) 1.24 Neut # (Auto) 10.57 H Lymph # (Auto) 1.16 L Winston # (Auto) 1.62 H Eos # (Auto) 0.28 Baso # (Auto) 0.04 Reticulocyte # 0.030 Immature Gran # (Auto) 0.30 H Absolute Nucleated RBC 0.03 Nucleated RBC % (auto) 0.2 Polychromasia 1+ Haptoglobin Pending PT 13.0 H 13.1 H INR 1.2 H 1.3 H Heparin Anti-Xa, Unfract 0.31 Sodium 136 136 Potassium 3.8 3.8 Chloride 102 101 Carbon Dioxide 25 24 Anion Gap 9 11 BUN 20 20 Creatinine 1.55 H 1.49 H Est Cr Clr Drug Dosing 76.6 79.7 eGFR 52.21 54.74 BUN/Creatinine Ratio 12.9 13.4 Glucose 124 H 144 H POC Glucose 131 H Calcium 8.6 8.8 Magnesium 1.7 Total Bilirubin 0.5 AST 13 ALT 11 Alkaline Phosphatase 117 H Lactate Dehydrogenase 344 H Total Protein 7.1 Albumin 3.2 L Globulin 3.9 Albumin/Globulin Ratio 0.8 L Blood Type A Positive Antibody Screen POSITIVE A Antibody Identification Pending Antibody ID Comment Pending Crossmatch See Detail PG Care Time/CCT Total # of Minutes Spent Total Time Spent with Patient: Total time spent is greater than 50% in coordination of care (as documented) at patient's floor/unit and/or counseling patient: Coding Level of Care Code 39780 SUB INP/OBS CARE 3/50MIN Diagnoses Atrial fibrillation with rapid ventricular response I48.91 Lower extremity edema R60.0 Chronic deep vein thrombosis (DVT) of both lower extremities, unspecified vein I82.503 DVT location: lower extremity Affected thrombotic vein of extremity: unspecified vein of extremity Chronicity: chronic Laterality: bilateral Tachycardia R00.0 Essential hypertension I10 (3) DVT (deep venous thrombosis) DVT location: lower extremity Affected thrombotic vein of extremity: unspecified vein of extremity Chronicity: chronic Laterality: bilateral Qualified Code(s): I82.503 - Chronic embolism and thrombosis of unspecified deep veins of lower extremity, bilateral
--- NOTE | 2025-08-05 15:17 | Hospitalist Progress Note ---
Date of Service August 05, 2025 Assessment & Plan (1) SILVA (dyspnea on exertion): Plan: 55-year-old male with past medical significant for type 2 diabetes, dyslipidemia, history of ITP, atopic dermatitis, tobacco use disorder, CVA, traumatic subdural hematoma, chronic anemia baseline hemoglobin 8-9, DVT status post IVC filter, on Eliquis, history of chronic left IJ thrombus, Klinefelter syndrome, bilateral adrenal nodules, thyroid nodules who was recently in the hospital for dizziness thought to be orthostatic and MAGDA thought to be from hypovolemia got discharged on 07/27/2025 comes back because of edema in lower extremities and pain in the lower extremities and also dyspnea on exertion. Patient denies any chest pain. Denies any headache. No blurred vision. No runny nose or sore throat. No cough. No nausea. No abdominal pain. Normal bowel and bladder movements. Denies any blood in the stools. In April patient was transferred from [facility] to [facility] for refractory ITP to IVIG and steroids and had a prolonged hospital stay until July 13, 2025. His hospital stay was complicated by multiple DVTs status post IVC filter placement because of low platelets and also ischemic stroke and subdural hematoma, non-ST left [place], hospital-acquired pneumonia and incidentally on bone marrow biopsy also found to have Klinefelter syndrome. During the stay in [facility] he also required multiple blood transfusions secondary to recurrent severe epistaxis also developed submucosal hematomas and necrotic tongue hematoma secondary to severe thrombocytopenia which is resolved. Paroxysmal atrial fibrillation with rapid response Spontaneously converted to sinus --ECHO: Left ventricle systolic function is normal. EF 60 to 65%. Grade 1 diastolic dysfunction. Mild pulmonic valve regurgitation --Normal TSH IV amiodarone discontinued Continue amiodarone 200 mg twice a day while hospitalized and transition to 200 mg daily on discharge Metoprolol succinate increased to 50 mg twice a day Amlodipine discontinued as likely contributing to edema Monitor and replete electrolytes as needed Appreciate cardiology input Continue IV heparin until INR is therapeutic Continue Coumadin, monitor INR INR 1.3 today Needs follow-up with cardiology on discharge Acute DVT with superficial phlebitis IVC filter clot H/O DVT status post IVC filter and also on Eliquis --Chest CTA:No pulmonary emboli identified although segmental and subsegmental pulmonary arteries suboptimally assessed due to artifact. Apparent 1.2 cm filling defect within the proximal SVC at the confluence of the brachiocephalic veins, decreased when compared to CT of April 21, 2025. This may be artifactual however a small amount of thrombus could appear similar. A mass is considered less likely. No consolidation to suggest pneumonia. --Arterial Doppler:No hemodynamically significant stenosis or occlusion in either lower extremity. --Venous Doppler: Bilateral occlusive deep venous thrombosis from each groin to each knee. Poorly evaluated deep veins of each calf. Bilateral greater saphenous vein thrombosis. --CT ABD:IVC filter insitu with distended iliac veins with retroperitoneal fat stranding- raising the possibility of thrombus - new finding. Advise contrast enhanced CT for further evaluation. -- Failed Eliquis Prior hospitalist discussed with hematology : Recommended to discontinue Eliquis and start on Coumadin Appreciate vascular surgery input Continue IV heparin and Coumadin until INR is therapeutic Needs follow-up with Coumadin clinic on discharge Acute on Chronic anemia S/P 1 unit PRBCs Thought to be secondary to marrow suppression Anemia workup pending Less likely hemolytic given normal reticulocyte count Plan to transfuse 1 unit PRBC today Discussed with his primary yard attendant at [facility] Dr.Nathhapol Nguyen ([phone]) on 08/05/25: Recommends to hold CellCept and discontinue prednisone. Advised to continue dapsone and Doptelet. 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 No acute bleeding issues Will need follow-up with hematology on discharge Follow-up anemia panel Acute kidney injury Creatinine 1.4 today Monitor renal function Avoid nephrotoxic agents as able Renal function improving H/O ITP Hold CellCept as above Continue Dapsone and Doptelet Steroid taper course discontinued Monitor platelet count DM II HbA1c 5.9 Continue insulin per protocol Monitor blood glucose levels Hypertension Holding losartan for MAGDA Amlodipine discontinued as contributing to anemia Continue metoprolol Monitor blood pressure GERD Continue Protonix Chronic leukocytosis Likely due to prednisone use Monitor History of CVA Continue aspirin, statin Morbid Obesity BMI 41 Counselling DVT Px: IV Heparin+ Coumadin CODE STATUS Full code Family contact: Dr.Dr Cha (Sister) [phone] Admission and Anticipated Discharge Date Admission Date: July 31, 2025 Subjective Patient is seen and examined at bedside Noted drop in hemoglobin, denies any bleeding issues Patient denies any chest pain, dyspnea, nausea, vomiting, abdominal pain Reports leg edema No other complaints Discussed with hematology and patient's family over the phone Review of Systems Review of Systems: All systems reviewed & are unremarkable except as noted in Subjective Physical Exam Physical Exam: Physical Exam: Vitals signs as noted above General Appearance:Obese, no apparent distress Head: normocephalic, Atraumatic Eyes: normal inspection, EOMI Neck: supple, Trachea midline Respiratory/Chest: Decreased breath sounds, CTA, No accessory muscle use Cardiovascular: S1, S2, no murmur Abdomen/GI:Soft, Non tender, Bowel sounds present Extremities/Musculoskeletal:normal inspection, 1+ B/L LE edema Neurologic/Psych:AAOX3, grossly no focal neurological deficits Skin: normal color, warm Results & Data Results & Data Vital Signs (Past 12 Hours) Vital Signs Temp Pulse Pulse Resp BP Pulse Ox O2 Del Method 08/05/25 11:39 36.9 C 87 18 105/69 92 Room Air 08/05/25 10:00 08/05/25 07:34 37.0 C 90 19 116/81 94 Room Air 08/05/25 07:00 83 O2 Del Method 08/05/25 11:39 08/05/25 10:00 Room Air 08/05/25 07:34 08/05/25 07:00 Laboratory Results Short CBC 08/05/25 08/05/25 Range/Units 03:13 04:47 WBC 13.97 H (4.8-10.8) K/ul Hgb 6.5 L* (14.0-18.0) g/dl Hct 21.4 L (42.0-52.0) % Plt Count 291 (130-400) K/uL BMP 08/05/25 08/05/25 03:13 04:47 Sodium 136 136 Potassium 3.8 3.8 Chloride 102 101 Carbon Dioxide 25 24 BUN 20 20 Creatinine 1.55 H 1.49 H Glucose 124 H 144 H Calcium 8.6 8.8 Liver Function 08/05/25 Range/Units 04:47 Total Bilirubin 0.5 (0.2-1.0) mg/dl AST 13 (13-39) U/L ALT 11 (7-52) U/L Alkaline Phosphatase 117 H (34-104) U/L Albumin 3.2 L (3.4-5.0) gm/dl
[2025-08-05] MEDS: METOPROLOL SUCC 50MG EXT REL TAB PO SCH (17:07)
[2025-08-05 21:15] LABS: Iron 18.0 mcg/dl (35-175); Transferrin 186.0 mg/dl (200-360)
[2025-08-05 21:21] LABS: Hematocrit (blood only) 22.6 % (42.0-52.0); Hemoglobin 7.2 g/dl (14.0-18.0); White Blood Count 15.16 K/ul (4.8-10.8)
[2025-08-05 21:22] LABS: Mean Corpuscular Hemoglobin 25.4 pg (25.0-34.0); Mean Corpuscular Volume 79.6 fL (80.0-100.0); RDW Standard Deviation 60.3 fL (36.4-46.3); Red Blood Count 2.84 M/uL (4.70-6.10)
[2025-08-05 21:35] LABS: Ferritin 262.4 ng/ml (8-388)
[2025-08-05 21:41] LABS: Folate (Folic Acid),Ser orPlas 12.55 ng/ml (>5.38)
[2025-08-05 21:42] LABS: Vitamin B12 1005.0 pg/ml (180-914)
[2025-08-05 22:12] LABS: ALC (manual) 2.27 K/uL (1.2-3.4); ANC (manual) 11.82 K/uL (1.4-6.5); Anisocytosis Present; Platelet Count 321 K/uL (130-400); Polychromasia 1+; Tear Drop Cells 1+
[2025-08-06 07:33] LABS: Anion Gap 9.0 (3-11); Blood Urea Nitrogen 20.0 mg/dl (6-23); Calcium 8.8 mg/dl (8.6-10.3); Carbon Dioxide 27.0 mmol/L (21-32); Chloride 102.0 mmol/L (98-107); Creatinine Clr Calc Pharmacy 82.4 ml/min; Glucose 119.0 mg/dl (70-99(Fasting)); Hematocrit (blood only) 21.0 % (42.0-52.0); Hemoglobin 6.6 g/dl (14.0-18.0); Mean Corpuscular Hemoglobin 25.0 pg (25.0-34.0); Mean Corpuscular Volume 79.5 fL (80.0-100.0); Platelet Count 289 K/uL (130-400); Potassium 3.8 mmol/L (3.5-5.1); RDW Standard Deviation 60.3 fL (36.4-46.3); Red Blood Count 2.64 M/uL (4.70-6.10); Sodium 138.0 mmol/L (136-145); White Blood Count 12.78 K/ul (4.8-10.8)
[2025-08-06 07:51] LABS: ANTI-Xa, UFH(UnfractionatedHep 0.24 IU/ml (0.3-0.7)
[2025-08-06 07:54] LABS: INR 1.6 (0.9-1.1); Prothrombin Time 16.5 Seconds (9.0-12.0)
[2025-08-06] MEDS: FERROUS SULFATE 325 MG TAB PO SCH (11:12)
--- NOTE | 2025-08-06 11:36 | Hospitalist Progress Note ---
Date of Service August 06, 2025 Assessment & Plan (1) SILVA (dyspnea on exertion): Plan: 55-year-old male with past medical significant for type 2 diabetes, dyslipidemia, history of ITP, atopic dermatitis, tobacco use disorder, CVA, traumatic subdural hematoma, chronic anemia baseline hemoglobin 8-9, DVT status post IVC filter, on Eliquis, history of chronic left IJ thrombus, Klinefelter syndrome, bilateral adrenal nodules, thyroid nodules who was recently in the hospital for dizziness thought to be orthostatic and MAGDA thought to be from hypovolemia got discharged on 07/27/2025 comes back because of edema in lower extremities and pain in the lower extremities and also dyspnea on exertion. Patient denies any chest pain. Denies any headache. No blurred vision. No runny nose or sore throat. No cough. No nausea. No abdominal pain. Normal bowel and bladder movements. Denies any blood in the stools. In April patient was transferred from [facility] to [facility] for refractory ITP to IVIG and steroids and had a prolonged hospital stay until July 13, 2025. His hospital stay was complicated by multiple DVTs status post IVC filter placement because of low platelets and also ischemic stroke and subdural hematoma, non-ST left [place], hospital-acquired pneumonia and incidentally on bone marrow biopsy also found to have Klinefelter syndrome. During the stay in [facility] he also required multiple blood transfusions secondary to recurrent severe epistaxis also developed submucosal hematomas and necrotic tongue hematoma secondary to severe thrombocytopenia which is resolved. Paroxysmal atrial fibrillation with rapid response Spontaneously converted to sinus --ECHO: Left ventricle systolic function is normal. EF 60 to 65%. Grade 1 diastolic dysfunction. Mild pulmonic valve regurgitation --Normal TSH IV amiodarone discontinued Continue amiodarone 200 mg twice a day while hospitalized and transition to 200 mg daily on discharge Metoprolol succinate increased to 50 mg twice a day Amlodipine discontinued as likely contributing to edema Monitor and replete electrolytes as needed Appreciate cardiology input Continue IV heparin until INR is therapeutic Continue Coumadin, monitor INR INR 1.6 today Needs follow-up with cardiology on discharge Adjust Coumadin dose as needed Acute DVT with superficial phlebitis IVC filter clot H/O DVT status post IVC filter and also on Eliquis --Chest CTA:No pulmonary emboli identified although segmental and subsegmental pulmonary arteries suboptimally assessed due to artifact. Apparent 1.2 cm filling defect within the proximal SVC at the confluence of the brachiocephalic veins, decreased when compared to CT of April 21, 2025. This may be artifactual however a small amount of thrombus could appear similar. A mass is considered less likely. No consolidation to suggest pneumonia. --Arterial Doppler:No hemodynamically significant stenosis or occlusion in either lower extremity. --Venous Doppler: Bilateral occlusive deep venous thrombosis from each groin to each knee. Poorly evaluated deep veins of each calf. Bilateral greater saphenous vein thrombosis. --CT ABD:IVC filter insitu with distended iliac veins with retroperitoneal fat stranding- raising the possibility of thrombus - new finding. Advise contrast enhanced CT for further evaluation. -- Failed Eliquis Prior hospitalist discussed with hematology : Recommended to discontinue Eliquis and start on Coumadin Appreciate vascular surgery input Continue IV heparin and Coumadin until INR is therapeutic Needs follow-up with Coumadin clinic on discharge Acute on Chronic anemia S/P 1 unit PRBCs Thought to be secondary to marrow suppression Anemia workup: Peripheral smear, haptoglobin, fecal occult, TIBC pending Less likely hemolytic given normal reticulocyte count Plan to transfuse PRBC today if compatible with blood arranged Discussed with his primary finishing and shipping supervisor at [facility] Dr.Nathhapol Nguyen ([phone]) on 08/05/25: Recommends to hold CellCept and discontinue prednisone. Advised to continue dapsone and Doptelet. 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 No acute bleeding issues Advised to follow-up with hematology on discharge Started on iron supplement Acute kidney injury Creatinine 1.4 Monitor renal function Avoid nephrotoxic agents as able Renal function improving H/O ITP Hold CellCept as above Continue Dapsone and Doptelet Steroid taper course discontinued Monitor platelet count DM II HbA1c 5.9 Continue insulin per protocol Monitor blood glucose levels Hypertension Holding losartan for MAGDA Amlodipine discontinued as contributing to anemia Continue metoprolol Monitor blood pressure BP stable GERD Continue Protonix Chronic leukocytosis Likely due to prednisone use Monitor History of CVA Continue aspirin, statin Morbid Obesity BMI 41 Counselling DVT Px: IV Heparin+ Coumadin CODE STATUS Full code Family contact: Dr.Dr Cha (Sister) [phone] Admission and Anticipated Discharge Date Admission Date: July 31, 2025 Subjective Patient is seen and examined at bedside No new complaints Still waiting for blood transfusion Denies any chest pain, dyspnea, nausea, vomiting, abdominal pain, bleeding issues Leg edema slowly improving Still has some leg discomfort Review of Systems Review of Systems: All systems reviewed & are unremarkable except as noted in Subjective Physical Exam Physical Exam: Physical Exam: Vitals signs as noted above General Appearance:Obese, no apparent distress Head: normocephalic, Atraumatic Eyes: normal inspection, EOMI Neck: supple, Trachea midline Respiratory/Chest: Decreased breath sounds, CTA, No accessory muscle use Cardiovascular: S1, S2, no murmur Abdomen/GI:Soft, Non tender, Bowel sounds present Extremities/Musculoskeletal:normal inspection, 1+ B/L LE edema Neurologic/Psych:AAOX3, grossly no focal neurological deficits Skin: normal color, warm Results & Data Results & Data Vital Signs (Past 12 Hours) Vital Signs Temp Pulse Resp BP Pulse Ox O2 Del Method 08/06/25 11:15 36.9 C 88 18 104/64 95 Room Air 08/06/25 07:22 36.7 C 80 18 114/71 98 Room Air 08/06/25 04:40 37.0 C 76 19 121/62 93 Room Air 08/06/25 00:42 37.0 C 76 18 108/66 92 Room Air Laboratory Results Short CBC 08/05/25 08/06/25 Range/Units 20:31 06:46 WBC 15.16 H 12.78 H (4.8-10.8) K/ul Hgb 7.2 L 6.6 L* (14.0-18.0) g/dl Hct 22.6 L 21.0 L (42.0-52.0) % Plt Count 321 289 (130-400) K/uL [facility] 08/06/25 06:46 Sodium 138 Potassium 3.8 Chloride 102 Carbon Dioxide 27 BUN 20 Creatinine 1.44 H Glucose 119 H Calcium 8.8
[2025-08-06 15:56] LABS: Hematocrit (blood only) 24.1 % (42.0-52.0); Hemoglobin 7.4 g/dl (14.0-18.0)
[2025-08-06 17:04] LABS: ANTI-Xa, UFH(UnfractionatedHep 0.24 IU/ml (0.3-0.7)
[2025-08-06] MEDS: WARFARIN SOD 5 MG TAB PO SCH (17:15)
[2025-08-06 23:20] LABS: Hematocrit (blood only) 24.2 % (42.0-52.0); Hemoglobin 7.4 g/dl (14.0-18.0)
[2025-08-06] MEDS ORDERED: SODIUM CHLORIDE 0.9% 100 ML IV PRN (23:31)
[2025-08-07 00:06] LABS: ANTI-Xa, UFH(UnfractionatedHep 0.27 IU/ml (0.3-0.7)
[2025-08-07 04:45] LABS: Hematocrit (blood only) 25.1 % (42.0-52.0); Hemoglobin 7.8 g/dl (14.0-18.0); Mean Corpuscular Hemoglobin 24.8 pg (25.0-34.0); Mean Corpuscular Volume 79.7 fL (80.0-100.0); Platelet Count 278 K/uL (130-400); RDW Standard Deviation 55.2 fL (36.4-46.3); Red Blood Count 3.15 M/uL (4.70-6.10); White Blood Count 11.36 K/ul (4.8-10.8)
[2025-08-07 05:02] LABS: Anion Gap 9.0 (3-11); Blood Urea Nitrogen 15.0 mg/dl (6-23); Calcium 8.7 mg/dl (8.6-10.3); Carbon Dioxide 26.0 mmol/L (21-32); Chloride 102.0 mmol/L (98-107); Creatinine Clr Calc Pharmacy 93.3 ml/min; Glucose 107.0 mg/dl (70-99(Fasting)); Potassium 3.8 mmol/L (3.5-5.1); Sodium 137.0 mmol/L (136-145)
[2025-08-07 05:32] LABS: INR 1.8 (0.9-1.1); Prothrombin Time 18.2 Seconds (9.0-12.0)
[2025-08-07 07:22] LABS: ANTI-Xa, UFH(UnfractionatedHep 0.36 IU/ml (0.3-0.7)
--- NOTE | 2025-08-07 11:14 | Hospitalist Progress Note ---
Date of Service August 07, 2025 Assessment & Plan (1) SILVA (dyspnea on exertion): Plan: 55-year-old male with past medical significant for type 2 diabetes, dyslipidemia, history of ITP, atopic dermatitis, tobacco use disorder, CVA, traumatic subdural hematoma, chronic anemia baseline hemoglobin 8-9, DVT status post IVC filter, on Eliquis, history of chronic left IJ thrombus, Klinefelter syndrome, bilateral adrenal nodules, thyroid nodules who was recently in the hospital for dizziness thought to be orthostatic and MAGDA thought to be from hypovolemia got discharged on 07/27/2025 comes back because of edema in lower extremities and pain in the lower extremities and also dyspnea on exertion. Patient denies any chest pain. Denies any headache. No blurred vision. No runny nose or sore throat. No cough. No nausea. No abdominal pain. Normal bowel and bladder movements. Denies any blood in the stools. In April patient was transferred from [facility] to [facility] for refractory ITP to IVIG and steroids and had a prolonged hospital stay until July 13, 2025. His hospital stay was complicated by multiple DVTs status post IVC filter placement because of low platelets and also ischemic stroke and subdural hematoma, non-ST left [place], hospital-acquired pneumonia and incidentally on bone marrow biopsy also found to have Klinefelter syndrome. During the stay in [facility] he also required multiple blood transfusions secondary to recurrent severe epistaxis also developed submucosal hematomas and necrotic tongue hematoma secondary to severe thrombocytopenia which is resolved. Paroxysmal atrial fibrillation with rapid response Spontaneously converted to sinus --ECHO: Left ventricle systolic function is normal. EF 60 to 65%. Grade 1 diastolic dysfunction. Mild pulmonic valve regurgitation --Normal TSH IV amiodarone discontinued Continue amiodarone 200 mg twice a day while hospitalized and transition to 200 mg daily on discharge Metoprolol succinate increased to 50 mg twice a day Amlodipine discontinued as likely contributing to edema Monitor and replete electrolytes as needed Appreciate cardiology input Continue IV heparin until INR is therapeutic Continue Coumadin, monitor INR INR 1.8 today Needs follow-up with cardiology on discharge Adjust Coumadin dose as needed Expect INR to be therapeutic tomorrow Acute DVT with superficial phlebitis IVC filter clot H/O DVT status post IVC filter and also on Eliquis --Chest CTA:No pulmonary emboli identified although segmental and subsegmental pulmonary arteries suboptimally assessed due to artifact. Apparent 1.2 cm filling defect within the proximal SVC at the confluence of the brachiocephalic veins, decreased when compared to CT of April 21, 2025. This may be artifactual however a small amount of thrombus could appear similar. A mass is considered less likely. No consolidation to suggest pneumonia. --Arterial Doppler:No hemodynamically significant stenosis or occlusion in either lower extremity. --Venous Doppler: Bilateral occlusive deep venous thrombosis from each groin to each knee. Poorly evaluated deep veins of each calf. Bilateral greater saphenous vein thrombosis. --CT ABD:IVC filter insitu with distended iliac veins with retroperitoneal fat stranding- raising the possibility of thrombus - new finding. Advise contrast enhanced CT for further evaluation. -- Failed Eliquis Prior hospitalist discussed with hematology : Recommended to discontinue Eliquis and start on Coumadin Appreciate vascular surgery input Continue IV heparin and Coumadin until INR is therapeutic Needs follow-up with Coumadin clinic on discharge Continue current management Acute on Chronic anemia S/P 3 unit PRBCs Thought to be secondary to marrow suppression Anemia workup: Peripheral smear, haptoglobin, fecal occult Less likely hemolytic given normal reticulocyte count Discussed with his primary bark peeler at [facility] Dr.Nathhapol Nguyen ([phone]) on 08/05/25: Recommends to hold CellCept and discontinue prednisone. Advised to continue dapsone and Doptelet. Also advised to get anemia panel No acute bleeding issues Advised to follow-up with hematology on discharge Continue iron supplement Continue to monitor CBC Acute kidney injury--resolved Creatinine 1.2 Monitor renal function Avoid nephrotoxic agents as able H/O ITP Hold CellCept as above Continue Dapsone and Doptelet Steroid taper course discontinued Monitor platelet count DM II HbA1c 5.9 Continue insulin per protocol Monitor blood glucose levels Hypertension Holding losartan for MAGDA Amlodipine discontinued as contributing to anemia Continue metoprolol Monitor blood pressure BP stable GERD Continue Protonix Chronic leukocytosis Likely due to prednisone use Monitor History of CVA Continue aspirin, statin Morbid Obesity BMI 41 Counselling DVT Px: IV Heparin+ Coumadin CODE STATUS Full code Family contact: Dr.Dr Cha (Sister) [phone] Admission and Anticipated Discharge Date Admission Date: July 31, 2025 Subjective Patient is seen and examined at bedside Continues to complain leg edema and leg discomfort Denies any chest pain, dyspnea, nausea, vomiting, abdominal pain, bleeding issues No new complaints today Review of Systems Review of Systems: All systems reviewed & are unremarkable except as noted in Subjective Physical Exam Physical Exam: Physical Exam: Vitals signs as noted above General Appearance:Obese, no apparent distress Head: normocephalic, Atraumatic Eyes: normal inspection, EOMI Neck: supple, Trachea midline Respiratory/Chest: Decreased breath sounds, CTA, No accessory muscle use Cardiovascular: S1, S2, no murmur Abdomen/GI:Soft, Non tender, Bowel sounds present Extremities/Musculoskeletal:normal inspection, 1+ B/L LE edema Neurologic/Psych:AAOX3, grossly no focal neurological deficits Skin: normal color, warm Results & Data Results & Data Vital Signs (Past 12 Hours) Vital Signs Temp Pulse Pulse Resp BP BP BP 08/07/25 09:00 72 08/07/25 07:05 36.6 C 86 18 114/82 08/07/25 03:50 36.7 C 83 16 101/67 08/07/25 02:44 36.9 C 73 16 114/62 08/07/25 02:07 36.8 C 73 16 116/61 08/07/25 01:07 36.8 C 73 16 102/59 L 08/07/25 00:37 36.8 C 75 16 111/60 08/07/25 00:22 36.7 C 80 16 130/85 08/07/25 00:04 36.7 C 78 16 108/71 08/06/25 23:47 36.7 C 88 18 131/79 Pulse Ox O2 Del Method 08/07/25 09:00 08/07/25 07:05 94 Room Air 08/07/25 03:50 98 Room Air 08/07/25 02:44 94 08/07/25 02:07 94 08/07/25 01:07 94 08/07/25 00:37 94 08/07/25 00:22 95 08/07/25 00:04 98 08/06/25 23:47 96 Room Air Laboratory Results Short CBC 08/06/25 08/06/25 08/07/25 Range/Units 15:46 23:01 04:26 WBC 11.36 H (4.8-10.8) K/ul Hgb 7.4 L 7.4 L 7.8 L (14.0-18.0) g/dl Hct 24.1 L 24.2 L 25.1 L (42.0-52.0) % Plt Count 278 (130-400) K/uL BMP 08/07/25 04:26 Sodium 137 Potassium 3.8 Chloride 102 Carbon Dioxide 26 BUN 15 Creatinine 1.27 Glucose 107 H Calcium 8.7
[2025-08-07] MEDS: FUROSEMIDE 40 MG TAB PO ONE (11:27)
[2025-08-08 06:17] LABS: Hematocrit (blood only) 26.0 % (42.0-52.0); Hemoglobin 8.3 g/dl (14.0-18.0); Mean Corpuscular Hemoglobin 25.6 pg (25.0-34.0); Mean Corpuscular Volume 80.2 fL (80.0-100.0); Platelet Count 285 K/uL (130-400); RDW Standard Deviation 56.8 fL (36.4-46.3); Red Blood Count 3.24 M/uL (4.70-6.10); White Blood Count 11.20 K/ul (4.8-10.8)
[2025-08-08 06:33] LABS: INR 2.2 (0.9-1.1); Prothrombin Time 22.2 Seconds (9.0-12.0)
[2025-08-08 06:35] LABS: ANTI-Xa, UFH(UnfractionatedHep 0.38 IU/ml (0.3-0.7)
[2025-08-08 06:41] LABS: Anion Gap 8.0 (3-11); Blood Urea Nitrogen 15.0 mg/dl (6-23); Calcium 8.8 mg/dl (8.6-10.3); Carbon Dioxide 29.0 mmol/L (21-32); Chloride 102.0 mmol/L (98-107); Creatinine Clr Calc Pharmacy 87.8 ml/min; Glucose 129.0 mg/dl (70-99(Fasting)); Potassium 3.9 mmol/L (3.5-5.1); Sodium 139.0 mmol/L (136-145)
[2025-08-08] MEDS: FUROSEMIDE 40 MG TAB PO ONE (09:51)
--- NOTE | 2025-08-08 12:48 | Hospitalist Progress Note ---
Date of Service August 08, 2025 Assessment & Plan (1) SILVA (dyspnea on exertion): Plan: 55-year-old male with past medical significant for type 2 diabetes, dyslipidemia, history of ITP, atopic dermatitis, tobacco use disorder, CVA, traumatic subdural hematoma, chronic anemia baseline hemoglobin 8-9, DVT status post IVC filter, on Eliquis, history of chronic left IJ thrombus, Klinefelter syndrome, bilateral adrenal nodules, thyroid nodules who was recently in the hospital for dizziness thought to be orthostatic and MAGDA thought to be from hypovolemia got discharged on 07/27/2025 comes back because of edema in lower extremities and pain in the lower extremities and also dyspnea on exertion. Patient denies any chest pain. Denies any headache. No blurred vision. No runny nose or sore throat. No cough. No nausea. No abdominal pain. Normal bowel and bladder movements. Denies any blood in the stools. In April patient was transferred from [facility] to [facility] for refractory ITP to IVIG and steroids and had a prolonged hospital stay until July 13, 2025. His hospital stay was complicated by multiple DVTs status post IVC filter placement because of low platelets and also ischemic stroke and subdural hematoma, non-ST left [place], hospital-acquired pneumonia and incidentally on bone marrow biopsy also found to have Klinefelter syndrome. During the stay in [facility] he also required multiple blood transfusions secondary to recurrent severe epistaxis also developed submucosal hematomas and necrotic tongue hematoma secondary to severe thrombocytopenia which is resolved. Paroxysmal atrial fibrillation with rapid response Spontaneously converted to sinus --ECHO: Left ventricle systolic function is normal. EF 60 to 65%. Grade 1 diastolic dysfunction. Mild pulmonic valve regurgitation --Normal TSH IV amiodarone discontinued Continue amiodarone 200 mg twice a day while hospitalized and transition to 200 mg daily on discharge Metoprolol succinate increased to 50 mg twice a day Amlodipine discontinued as likely contributing to edema Monitor and replete electrolytes as needed Appreciate cardiology input IV heparin discontinued Continue Coumadin, monitor INR INR 2.2 today Needs follow-up with cardiology and Coumadin clinic on discharge Adjust Coumadin dose as needed PT OT prior to discharge Acute DVT with superficial phlebitis IVC filter clot H/O DVT status post IVC filter and also on Eliquis --Chest CTA:No pulmonary emboli identified although segmental and subsegmental pulmonary arteries suboptimally assessed due to artifact. Apparent 1.2 cm filling defect within the proximal SVC at the confluence of the brachiocephalic veins, decreased when compared to CT of April 21, 2025. This may be artifactual however a small amount of thrombus could appear similar. A mass is considered less likely. No consolidation to suggest pneumonia. --Arterial Doppler:No hemodynamically significant stenosis or occlusion in either lower extremity. --Venous Doppler: Bilateral occlusive deep venous thrombosis from each groin to each knee. Poorly evaluated deep veins of each calf. Bilateral greater saphenous vein thrombosis. --CT ABD:IVC filter insitu with distended iliac veins with retroperitoneal fat stranding- raising the possibility of thrombus - new finding. Advise contrast enhanced CT for further evaluation. -- Failed Eliquis Prior hospitalist discussed with hematology : Recommended to discontinue Eliquis and start on Coumadin Appreciate vascular surgery input IV heparin discontinued Continue Coumadin Acute on Chronic anemia S/P 3 unit PRBCs CellCept thought to be contributing as well Anemia workup reviewed Peripheral smear: Suggestive of possible iron deficiency Vs anemia of chronic disease Less likely hemolytic given normal reticulocyte count Discussed with his primary beet worker at [facility] Dr.Nathhapol Nguyen ([phone]) on 08/05/25: Recommends to hold CellCept and discontinue prednisone. Advised to continue dapsone and Doptelet. Also advised to get anemia panel No acute bleeding issues Advised to follow-up with hematology on discharge Continue iron supplement Continue to monitor CBC Acute kidney injury--resolved Creatinine 1.3 Monitor renal function Avoid nephrotoxic agents as able H/O ITP Hold CellCept as above Continue Dapsone and Doptelet Steroid taper course discontinued Monitor platelet count DM II HbA1c 5.9 Continue insulin per protocol Monitor blood glucose levels Hypertension Holding losartan for MAGDA Amlodipine discontinued as contributing to anemia Continue metoprolol Monitor blood pressure BP stable GERD Continue Protonix Chronic leukocytosis Likely due to prednisone use Monitor History of CVA Continue aspirin, statin Morbid Obesity BMI 41 Counselling DVT Px: Coumadin CODE STATUS Full code Family contact: Dr.Dr Cha (Sister) [phone] Disposition PT OT prior to discharge Admission and Anticipated Discharge Date Admission Date: July 31, 2025 Subjective Patient is seen and examined at bedside Clinically no significant change today INR therapeutic Still has some leg discomfort and edema Denies any chest pain, dyspnea, nausea, vomiting, abdominal pain, bleeding issues Review of Systems Review of Systems: All systems reviewed & are unremarkable except as noted in Subjective Physical Exam Physical Exam: Physical Exam: Vitals signs as noted above General Appearance:Obese, no apparent distress Head: normocephalic, Atraumatic Eyes: normal inspection, EOMI Neck: supple, Trachea midline Respiratory/Chest: Decreased breath sounds, CTA, No accessory muscle use Cardiovascular: S1, S2, no murmur Abdomen/GI:Soft, Non tender, Bowel sounds present Extremities/Musculoskeletal:normal inspection, 1+ B/L LE edema Neurologic/Psych:AAOX3, grossly no focal neurological deficits Skin: normal color, warm Results & Data Results & Data Vital Signs (Past 12 Hours) Vital Signs Temp Pulse Pulse Resp BP BP Pulse Ox 08/08/25 08:03 36.8 C 77 19 108/67 92 08/08/25 08:00 68 08/08/25 03:26 36.7 C 76 16 122/67 95 08/08/25 01:36 93 H O2 Del Method 08/08/25 08:03 Room Air 08/08/25 08:00 08/08/25 03:26 Room Air 08/08/25 01:36 Laboratory Results Short CBC 08/08/25 Range/Units 05:51 WBC 11.20 H (4.8-10.8) K/ul Hgb 8.3 L (14.0-18.0) g/dl Hct 26.0 L (42.0-52.0) % Plt Count 285 (130-400) K/uL BMP 08/08/25 05:51 Sodium 139 Potassium 3.9 Chloride 102 Carbon Dioxide 29 BUN 15 Creatinine 1.35 Glucose 129 H Calcium 8.8
[2025-08-08 23:45] VITALS: RESP 18
[2025-08-09 07:38] VITALS: BP 118/80; PULSE 86; TEMP 97.9
[2025-08-09 07:38] LABS: Hematocrit (blood only) 26.1 % (42.0-52.0); Hemoglobin 8.0 g/dl (14.0-18.0)
[2025-08-09 08:08] LABS: INR 2.9 (0.9-1.1); Prothrombin Time 29.0 Seconds (9.0-12.0)
--- NOTE | 2025-08-09 12:26 | Hospitalist Progress Note ---
Date of Service August 09, 2025 Assessment & Plan (1) SILVA (dyspnea on exertion): Plan: 55-year-old male with past medical significant for type 2 diabetes, dyslipidemia, history of ITP, atopic dermatitis, tobacco use disorder, CVA, traumatic subdural hematoma, chronic anemia baseline hemoglobin 8-9, DVT status post IVC filter, on Eliquis, history of chronic left IJ thrombus, Klinefelter syndrome, bilateral adrenal nodules, thyroid nodules who was recently in the hospital for dizziness thought to be orthostatic and MAGDA thought to be from hypovolemia got discharged on 07/27/2025 comes back because of edema in lower extremities and pain in the lower extremities and also dyspnea on exertion. Patient denies any chest pain. Denies any headache. No blurred vision. No runny nose or sore throat. No cough. No nausea. No abdominal pain. Normal bowel and bladder movements. Denies any blood in the stools. In April patient was transferred from [facility] to [facility] for refractory ITP to IVIG and steroids and had a prolonged hospital stay until July 13, 2025. His hospital stay was complicated by multiple DVTs status post IVC filter placement because of low platelets and also ischemic stroke and subdural hematoma, non-ST left [place], hospital-acquired pneumonia and incidentally on bone marrow biopsy also found to have Klinefelter syndrome. During the stay in [facility] he also required multiple blood transfusions secondary to recurrent severe epistaxis also developed submucosal hematomas and necrotic tongue hematoma secondary to severe thrombocytopenia which is resolved. Paroxysmal atrial fibrillation with rapid response Spontaneously converted to sinus --ECHO: Left ventricle systolic function is normal. EF 60 to 65%. Grade 1 diastolic dysfunction. Mild pulmonic valve regurgitation --Normal TSH IV amiodarone discontinued Continue amiodarone 200 mg twice a day while hospitalized and transition to 200 mg daily on discharge Metoprolol succinate increased to 50 mg twice a day Amlodipine discontinued as likely contributing to edema Monitor and replete electrolytes as needed Appreciate cardiology input IV heparin discontinued Continue Coumadin, monitor INR INR 2.9 today Will give 2 mg Coumadin today Needs follow-up with cardiology and Coumadin clinic on discharge Adjust Coumadin dose as needed PT OT recommends home with home health Acute DVT with superficial phlebitis IVC filter clot H/O DVT status post IVC filter and also on Eliquis --Chest CTA:No pulmonary emboli identified although segmental and subsegmental pulmonary arteries suboptimally assessed due to artifact. Apparent 1.2 cm filling defect within the proximal SVC at the confluence of the brachiocephalic veins, decreased when compared to CT of April 21, 2025. This may be artifactual however a small amount of thrombus could appear similar. A mass is considered less likely. No consolidation to suggest pneumonia. --Arterial Doppler:No hemodynamically significant stenosis or occlusion in either lower extremity. --Venous Doppler: Bilateral occlusive deep venous thrombosis from each groin to each knee. Poorly evaluated deep veins of each calf. Bilateral greater saphenous vein thrombosis. --CT ABD:IVC filter insitu with distended iliac veins with retroperitoneal fat stranding- raising the possibility of thrombus - new finding. Advise contrast enhanced CT for further evaluation. -- Failed Eliquis Prior hospitalist discussed with hematology : Recommended to discontinue Eliquis and start on Coumadin Appreciate vascular surgery input IV heparin discontinued Continue Coumadin Acute on Chronic anemia S/P 3 unit PRBCs CellCept thought to be contributing as well Anemia workup reviewed Peripheral smear: Suggestive of possible iron deficiency Vs anemia of chronic disease Less likely hemolytic given normal reticulocyte count Discussed with his primary scutcher tender at [facility] Dr.Nathhapol Nguyen ([phone]) on 08/05/25: Recommends to hold CellCept and discontinue prednisone. Advised to continue dapsone and Doptelet. Also advised to get anemia panel No acute bleeding issues Advised to follow-up with hematology on discharge Continue iron supplement Continue to monitor CBC Acute kidney injury--resolved Creatinine 1.3 Monitor renal function Avoid nephrotoxic agents as able H/O ITP Hold CellCept as above Continue Dapsone and Doptelet Steroid taper course discontinued Monitor platelet count DM II HbA1c 5.9 Continue insulin per protocol Monitor blood glucose levels Hypertension Holding losartan for MAGDA Amlodipine discontinued as contributing to anemia Continue metoprolol Monitor blood pressure BP stable GERD Continue Protonix Chronic leukocytosis Likely due to prednisone use Monitor History of CVA Continue aspirin, statin Morbid Obesity BMI 41 Counselling DVT Px: Coumadin CODE STATUS Full code Family contact: Dr.Dr Cha (Sister) [phone] Disposition Home with home health Admission and Anticipated Discharge Date Admission Date: July 31, 2025 Subjective Patient is seen and examined at bedside No new complaints Had PT eval earlier today Denies any chest pain, dyspnea, nausea, vomiting, abdominal pain, bleeding issues Plan to be discharged home today Review of Systems Review of Systems: All systems reviewed & are unremarkable except as noted in Subjective Physical Exam Physical Exam: Physical Exam: Vitals signs as noted above General Appearance:Obese, no apparent distress Head: normocephalic, Atraumatic Eyes: normal inspection, EOMI Neck: supple, Trachea midline Respiratory/Chest: Decreased breath sounds, CTA, No accessory muscle use Cardiovascular: S1, S2, no murmur Abdomen/GI:Soft, Non tender, Bowel sounds present Extremities/Musculoskeletal:normal inspection, 1+ B/L LE edema Neurologic/Psych:AAOX3, grossly no focal neurological deficits Skin: normal color, warm Results & Data Results & Data Vital Signs (Past 12 Hours) Vital Signs Temp Pulse Resp BP Pulse Ox Pulse Ox O2 Del Method 08/09/25 11:50 94 08/09/25 07:25 36.6 C 86 18 118/80 93 Room Air O2 Flow Rate 08/09/25 11:50 0 08/09/25 07:25 Laboratory Results Short CBC 08/09/25 Range/Units 06:49 Hgb 8.0 L (14.0-18.0) g/dl Hct 26.1 L (42.0-52.0) %
--- NOTE | 2025-08-09 12:45 | Discharge Summary ---
Date of Service August 09, 2025 Admission HPI Per Admitting Provider 55-year-old male with past medical significant for type 2 diabetes, dyslipidemia, history of ITP, atopic dermatitis, tobacco use disorder, CVA, traumatic subdural hematoma, chronic anemia baseline hemoglobin 8-9, DVT status post IVC filter, on Eliquis, history of chronic left IJ thrombus, Klinefelter syndrome, bilateral adrenal nodules, thyroid nodules who was recently in the hospital for dizziness thought to be orthostatic and MAGDA thought to be from hypovolemia got discharged on 07/27/2025 comes back because of edema in lower extremities and pain in the lower extremities and also dyspnea on exertion. Patient denies any chest pain. Denies any headache. No blurred vision. No runny nose or sore throat. No cough. No nausea. No abdominal pain. Normal bowel and bladder movements. Denies any blood in the stools. In April patient was transferred from [facility] to [facility] for refractory ITP to IVIG and steroids and had a prolonged hospital stay until July 13, 2025. His hospital stay was complicated by multiple DVTs status post IVC filter placement because of low platelets and also ischemic stroke and subdural hematoma, non-ST left CA, hospital-acquired pneumonia and incidentally on bone marrow biopsy also found to have Klinefelter syndrome. During the stay in [facility] he also required multiple blood transfusions secondary to recurrent severe epistaxis also developed submucosal hematomas and necrotic tongue hematoma secondary to severe thrombocytopenia which is resolved. Past medical history. As mentioned above Past surgical history. IVC filter placement. Epistaxis procedure. Social history. Past tobacco use. Alcohol occasional. No drug use. Family history significant for maternal grand mother had cancer. Sister has MS. Admission Exam Per Admitting Provider General- Not in distress Head- atraumatic Eyes- PERRL,. ENT- oropharynx clear Neck- supple, no JVD. Lungs- clear to auscultation no wheezing or crackles Heart- regular rate and rhythm; no murmur, no gallop. Abdomen- normal bowel sounds, soft, nontender, no distension Extremities- b/l lower extremity edema present, calf tenderness present , no erythema seen Neuro- alert, oriented PERRL, no facial palsy; no dysarthria; moves extremities Principal Diagnosis Paroxysmal atrial fibrillation with rapid response Acute DVT with superficial phlebitis IVC filter clot Acute on Chronic anemia Acute kidney injury H/O ITP Discharge Data Allergies Allergy/AdvReac Type Severity Reaction Status Date / Time pollen extracts Allergy Intermediate ITCHY Verified 07/25/25 21:33 EYES, SNEEZING varenicline [From Chantix] AdvReac Intermediate Insomnia Verified 07/25/25 21:33 Consultations 07/31/25 01:11 ED Decision to Admit Stat 07/31/25 08:10 Consult Cardiology Routine 08/02/25 09:33 Consult Vascular Surgery Routine Procedures Performed Laboratory Results WBC 11.20 K/ul (4.8-10.8) H 08/08/25 05:51 RBC 3.24 M/uL (4.70-6.10) L 08/08/25 05:51 Hgb 8.0 g/dl (14.0-18.0) L 08/09/25 06:49 Hct 26.1 % (42.0-52.0) L 08/09/25 06:49 MCV 80.2 fL (80.0-100.0) 08/08/25 05:51 MCH 25.6 pg (25.0-34.0) 08/08/25 05:51 MCHC 31.9 g/dL (32.0-36.0) L 08/08/25 05:51 RDW Std Deviation 56.8 fL (36.4-46.3) H 08/08/25 05:51 RDW Coeff of Johnny 19.3 % (11.5-14.5) H 08/08/25 05:51 Plt Count 285 K/uL (130-400) 08/08/25 05:51 MPV 9.1 fL (9.4-12.4) L 08/08/25 05:51 Immature Gran % (Auto) 2.1 % 08/05/25 04:47 Neut % (Auto) 75.7 % 08/05/25 04:47 Lymph % (Auto) 8.3 % 08/05/25 04:47 [place] % (Auto) 11.6 % 08/05/25 04:47 Eos % (Auto) 2.0 % 08/05/25 04:47 Baso % (Auto) 0.3 % 08/05/25 04:47 Reticulocyte % (Auto) 1.24 % (0.50-2.00) 08/05/25 04:47 Neut # (Auto) 10.57 K/uL (1.40-6.50) H 08/05/25 04:47 Lymph # (Auto) 1.16 K/uL (1.20-3.40) L 08/05/25 04:47 [place] # (Auto) 1.62 K/uL (0.11-0.59) H 08/05/25 04:47 Eos # (Auto) 0.28 K/uL (0.00-0.50) 08/05/25 04:47 Baso # (Auto) 0.04 K/uL (0.00-0.20) 08/05/25 04:47 Reticulocyte # 0.030 10^6/uL (0.020-0.100) 08/05/25 04:47 Immature Gran # (Auto) 0.30 K/uL (0.01-0.20) H 08/05/25 04:47 Absolute Nucleated RBC 0.02 K/uL (0.00-0.12) 08/08/25 05:51 Nucleated RBC % (auto) 0.2 % 08/08/25 05:51 Neutrophils % (Manual) 78 % 08/05/25 20:31 Lymphocytes % (Manual) 15 % 08/05/25 20:31 Monocytes % (Manual) 5 % 08/05/25 20:31 Eosinophils % (Manual) 2 % 08/05/25 20:31 Neutrophils # (Manual) 11.82 K/uL (1.40-6.50) H 08/05/25 20:31 Total Absolute Neuts 11.82 K/uL (1.4-6.5) H 08/05/25 20:31 Lymphocytes # (Manual) 2.27 K/uL (1.2-3.4) 08/05/25 20:31 Total Abs Lymphocytes 2.27 K/uL (1.2-3.4) 08/05/25 20:31 Monocytes # (Manual) 0.76 K/uL (0.11-0.59) H 08/05/25 20:31 Eosinophils # (Manual) 0.30 K/uL (0-0.50) 08/05/25 20:31 Toxic Vacuolation 1+ 08/02/25 06:14 Platelet Estimate Normal (Normal) 08/05/25 20:31 Polychromasia 1+ 08/05/25 20:31 Anisocytosis Present 08/05/25 20:31 Tear Drop Cells 1+ 08/05/25 20:31 Ovalocytes 1+ 08/01/25 06:38 Acanthocytes (Spur) 1+ 08/01/25 06:38 Peripher Smr Path Cons 08/05/25 20:31 Haptoglobin 393 mg/dL (43-212) H 08/05/25 04:47 PT 29.0 Seconds (9.0-12.0) H 08/09/25 06:49 INR 2.9 (0.9-1.1) H 08/09/25 06:49 APTT 23 Seconds (21-31) 07/31/25 00:21 PTT Ratio 0.9 07/31/25 00:21 Heparin Anti-Xa, Unfract 0.38 IU/ml (0.3-0.7) 08/08/25 05:51 Sodium 139 mmol/L (136-145) 08/08/25 05:51 Potassium 3.9 mmol/L (3.5-5.1) 08/08/25 05:51 Chloride 102 mmol/L (98-107) 08/08/25 05:51 Carbon Dioxide 29 mmol/L (21-32) 08/08/25 05:51 Anion Gap 8 (3-11) 08/08/25 05:51 BUN 15 mg/dl (6-23) 08/08/25 05:51 Creatinine 1.35 mg/dl (0.6-1.4) 08/08/25 05:51 Est Cr Clr Drug Dosing 87.8 ml/min 08/08/25 05:51 eGFR 61.62 08/08/25 05:51 BUN/Creatinine Ratio 11.1 (10-20) 08/08/25 05:51 Glucose 129 mg/dl (70-99(Fasting)) H 08/08/25 05:51 POC Glucose 103 mg/dl (70-99) H 08/09/25 07:37 Estimat Average Glucose 123 mg/dl 07/31/25 08:40 Hemoglobin A1c 5.9 % (4.5-5.6) H 07/31/25 08:40 Lactate 0.7 mmol/L (0.4-2.0) 07/31/25 20:39 Calcium 8.8 mg/dl (8.6-10.3) 08/08/25 05:51 Magnesium 1.7 mg/dl (1.7-2.4) 08/05/25 03:13 Iron 18 mcg/dl (35-175) L 08/05/25 20:31 Unsaturated IBC 208 mcg/dl (155-355) 08/07/25 04:26 Transferrin 186 mg/dl (200-360) L 08/05/25 20:31 Ferritin 262.4 ng/ml (8-388) 08/05/25 20:31 Total Bilirubin 0.5 mg/dl (0.2-1.0) 08/05/25 04:47 AST 13 U/L (13-39) 08/05/25 04:47 ALT 11 U/L (7-52) 08/05/25 04:47 Alkaline Phosphatase 117 U/L (34-104) H 08/05/25 04:47 Lactate Dehydrogenase 344 U/L (86-244) H 08/05/25 04:47 Troponin I High Sens 31.0 pg/ml (0-20) H 07/31/25 19:23 B-Natriuretic Peptide 13 pg/ml (0-100) 07/31/25 00:21 Total Protein 7.1 gm/dl (6.0-8.3) 08/05/25 04:47 Albumin 3.2 gm/dl (3.4-5.0) L 08/05/25 04:47 Globulin 3.9 gm/dl (2.5-4.0) 08/05/25 04:47 Albumin/Globulin Ratio 0.8 (0.9-2) L 08/05/25 04:47 Vitamin B12 1005 pg/ml (180-914) H 08/05/25 20:31 Folate 12.55 ng/ml (>5.38) 08/05/25 20:31 TSH 1.345 uIu/ml (0.300-4.500) 08/02/25 06:17 Blood Type A Positive 08/05/25 04:47 Blood Type Recheck A Positive 08/06/25 15:46 Antibody Screen POSITIVE A 08/05/25 04:47 Antibody Identification Unknown Antibody 08/05/25 04:47 Antibody ID Comment Not Reportable 08/05/25 04:47 Direct Antiglob Test Positive (Negative) A 08/05/25 04:47 RASHMI (IgG-AHG) Neg (Negative) 08/05/25 04:47 RASHMI, Polyspecific Weak Pos (Negative) A 08/05/25 04:47 RASHMI C3b, C3d 5 Min Weak Pos (Negative) A 08/05/25 04:47 Crossmatch See Detail 08/05/25 04:47 Impressions Chest X-Ray 07/30/25 23:00 Exam(s): XR CXR 1 VIEW EXAM: XR Chest, 1 View CLINICAL HISTORY: Reason for exam: Chest pain, nonspecific. TECHNIQUE: Frontal view of the chest. COMPARISON: No relevant prior studies available. FINDINGS: Lungs: Unremarkable. No acute infiltration, atelectasis or mass. Pleural space: Unremarkable. No pneumothorax or pleural fluid. Heart: Unremarkable. No cardiomegaly. Mediastinum: Unremarkable. Normal mediastinal contour. Bones/joints: No acute findings. IMPRESSION: No acute findings in the chest. Electronically signed by: Antwan Thompson MD 07/31/25 01:24 AM Abdomen/Pelvis CT 07/31/25 04:31 EXAM: CT abd pelvis wo con CLINICAL HISTORY: magda, lower ext edema TECHNIQUE: Contiguous axial images were obtained from the level of the diaphragm to the pubic symphysis without intravenous or oral contrast. Coronal and sagittal reconstructions were likewise performed and indicated to increase the sensitivity for detecting clinically relevant pathology. CT scan was performed according to ALARA (as low as reasonable achievable). COMPARISON: 04/21/2025 13:20:46 DEVULCANIZER CHARGER. FINDINGS: The visualized lung bases are clear. Evaluation of the abdominal and pelvic visceral organs is limited without intravenous contrast. The unenhanced liver, spleen, pancreas, and adrenal glands are grossly unremarkable. The gallbladder is present. The kidneys are normal in size and attenuation without obvious calcification. There is no hydronephrosis or perinephric stranding. The ureters are normal in caliber. No adenopathy or fluid collections are seen. No evidence of focal or diffuse bowel wall thickening or evidence of bowel obstruction is seen. The appendix is visualized in the right lower quadrant and appears within normal limits. The aorta is normal in caliber. IVC filter is seen in situ. The iliac veins are distended and show mild retroperitoneal fat stranding The urinary bladder is partially distended. No aggressive appearing osseous lesions are identified. IMPRESSION: 1. IVC filter insitu with distended iliac veins with retroperitoneal fat stranding- raising the possibility of thrombus - new finding. Advise contrast enhanced CT for further evaluation. Electronically signed by Abdi Pascual 07-31-2025 07:08 AM Venous Doppler Study 07/31/25 08:00 EXAM: US Duplex Bilateral Lower Extremities Veins INDICATION: Swelling TECHNIQUE: Real-time duplex ultrasound scan of the bilateral lower extremity veins integrating B-mode two-dimensional vascular structure, Doppler spectral analysis, color flow Doppler imaging and compression. COMPARISON: No relevant prior studies available. FINDINGS: Right deep veins: Occlusive thrombus from the groin to the knee including the common femoral, deep, femoral and popliteal veins. Poorly evaluated deep Veins. Right superficial veins: Greater saphenous vein occluded. Left deep veins: Occlusive thrombus from the groin to the knee including the common femoral, deep, femoral and popliteal veins. Poorly evaluated deep Veins. Left superficial veins: Greater saphenous vein occluded. Soft tissues: No abnormality noted. IMPRESSION: 1. Bilateral occlusive deep venous thrombosis from each groin to each knee. Poorly evaluated deep veins of each calf. 2. Bilateral greater saphenous vein thrombosis. ACT 112: N/A Electronically signed by Nuvia Preciado 07-31-2025 09:36 AM Duplex Scan Lower Extremity Artery 07/31/25 21:11 Exam(s): US ARTERIAL BILATERAL LOWER EXTREMITIES EXAM: US Duplex Bilateral Lower Extremities Arteries CLINICAL HISTORY: Reason for exam: b/l lower ext pain. extensive dvt. pvd?. TECHNIQUE: Real-time duplex ultrasound scan of the bilateral lower extremity arteries integrating B-mode two-dimensional vascular structure, Doppler spectral analysis and color flow Doppler imaging. COMPARISON: None FINDINGS: Right common femoral artery: No acute findings. No occlusion or significant stenosis on color flow and spectral Doppler imaging. Normal waveform. Right superficial femoral artery: No acute findings. No occlusion or significant stenosis on color flow and spectral Doppler imaging. Normal waveform. Right popliteal artery: No acute findings. No occlusion or significant stenosis on color flow and spectral Doppler imaging. Normal waveform. Right calf/foot arteries: No acute findings. No occlusion or significant stenosis on color flow and spectral Doppler imaging. Normal waveform. Left common femoral artery: No acute findings. No occlusion or significant stenosis on color flow and spectral Doppler imaging. Normal waveform. Left superficial femoral artery: No acute findings. No occlusion or significant stenosis on color flow and spectral Doppler imaging. Normal waveform. Left popliteal artery: No acute findings. No occlusion or significant stenosis on color flow and spectral Doppler imaging. Normal waveform. Left calf/foot arteries: No acute findings. No occlusion or significant stenosis on color flow and spectral Doppler imaging. Normal waveform. Soft tissues: Unremarkable. IMPRESSION: No hemodynamically significant stenosis or occlusion in either lower extremity. Electronically signed by: Omari Jones M.D. 08/01/25 00:00 AM Chest CTA 08/01/25 08:32 CT ANGIOGRAM OF THE CHEST CLINICAL HISTORY: Shortness of breath. Evaluate for pulmonary embolus. COMPARISON STUDY: Chest CT April 21, 2025. Chest radiograph July 30, 2025. TECHNIQUE: Following the IV administration of 120 cc of Optiray 320, CT angiogram of the chest was performed from the upper abdomen to the thoracic inlet utilizing the pulmonary embolus protocol. Images are reviewed in the axial, sagittal, and coronal planes. 3-D MIPS images are created and assessed. IV contrast was administered without complication. A dose lowering technique was utilized adhering to the principles of ALARA. CT DOSE: 918.71 mGy.cm FINDINGS: No pulmonary emboli are identified although segmental and subsegmental pulmonary arteries are suboptimally assessed due to artifact. There is no thoracic aortic dissection. Size of the heart is normal. There is no pericardial effusion. Central airways are patent. There is no pneumothorax or pleural effusion. There is no consolidation to suggest pneumonia. Groundglass opacities and linear densities favor atelectasis. There is an apparent filling defect within the proximal SVC at the confluence of the brachycephalic veins which measures 1.2 cm. This appeared to be present on prior CT of April 21, 2025 and measures 1.5 cm. The left brachycephalic vein is diminutive. Bilateral adrenal nodules are better depicted on abdominal CT of July 23, 2025. IMPRESSION: 1. No pulmonary emboli identified although segmental and subsegmental pulmonary arteries suboptimally assessed due to artifact. 2. Apparent 1.2 cm filling defect within the proximal SVC at the confluence of the brachiocephalic veins, decreased when compared to CT of April 21, 2025. This may be artifactual however a small amount of thrombus could appear similar. A mass is considered less likely. 3. No consolidation to suggest pneumonia. ACT 112: Negative or not required by law. Electronically signed by: Gustavo Lima M.D. 08/01/2025 12:53 PM Ordered Studies 07/31/25 04:31 CT Abd and Pelvis [CT abd pelvis wo con] Routine 07/31/25 08:00 US venous doppler LE BI Routine 07/31/25 21:11 US arterial duplex LE BI Urgent 08/01/25 08:32 CT angio chest PE protocol Urgent Hospital Course (1) SILVA (dyspnea on exertion): 55-year-old male with past medical significant for type 2 diabetes, dyslipidemia, history of ITP, atopic dermatitis, tobacco use disorder, CVA, traumatic subdural hematoma, chronic anemia baseline hemoglobin 8-9, DVT status post IVC filter, on Eliquis, history of chronic left IJ thrombus, Klinefelter syndrome, bilateral adrenal nodules, thyroid nodules who was recently in the hospital for dizziness thought to be orthostatic and MAGDA thought to be from hypovolemia got discharged on 07/27/2025 comes back because of edema in lower extremities and pain in the lower extremities and also dyspnea on exertion. Patient denies any chest pain. Denies any headache. No blurred vision. No runny nose or sore throat. No cough. No nausea. No abdominal pain. Normal bowel and bladder movements. Denies any blood in the stools. In April patient was transferred from [facility] to [facility] for refractory ITP to IVIG and steroids and had a prolonged hospital stay until July 13, 2025. His hospital stay was complicated by multiple DVTs status post IVC filter placement because of low platelets and also ischemic stroke and subdural hematoma, non-ST left CA, hospital-acquired pneumonia and incidentally on bone marrow biopsy also found to have Klinefelter syndrome. During the stay in [facility] he also required multiple blood transfusions secondary to recurrent severe epistaxis also developed submucosal hematomas and necrotic tongue hematoma secondary to severe thrombocytopenia which is resolved. Paroxysmal atrial fibrillation with rapid response Spontaneously converted to sinus --ECHO: Left ventricle systolic function is normal. EF 60 to 65%. Grade 1 diastolic dysfunction. Mild pulmonic valve regurgitation --Normal TSH IV amiodarone discontinued Continue amiodarone 200 mg twice a day while hospitalized and transition to 200 mg daily on discharge Metoprolol succinate increased to 50 mg twice a day Amlodipine discontinued as likely contributing to edema Monitor and replete electrolytes as needed Appreciate cardiology input IV heparin discontinued Continue Coumadin, monitor INR INR 2.9 today Will give 2 mg Coumadin today Needs follow-up with cardiology and Coumadin clinic on discharge Adjust Coumadin dose as needed PT OT recommends home with home health Acute DVT with superficial phlebitis IVC filter clot H/O DVT status post IVC filter and also on Eliquis --Chest CTA:No pulmonary emboli identified although segmental and subsegmental pulmonary arteries suboptimally assessed due to artifact. Apparent 1.2 cm filling defect within the proximal SVC at the confluence of the brachiocephalic veins, decreased when compared to CT of April 21, 2025. This may be artifactual h owever a small amount of thrombus could appear similar. A mass is considered less likely. No consolidation to suggest pneumonia. --Arterial Doppler:No hemodynamically significant stenosis or occlusion in either lower extremity. --Venous Doppler: Bilateral occlusive deep venous thrombosis from each groin to each knee. Poorly evaluated deep veins of each calf. Bilateral greater saphenous vein thrombosis. --CT ABD:IVC filter insitu with distended iliac veins with retroperitoneal fat stranding- raising the possibility of thrombus - new finding. Advise contrast enhanced CT for further evaluation. -- Failed Eliquis Prior hospitalist discussed with hematology : Recommended to discontinue Eliquis and start on Coumadin Appreciate vascular surgery input IV heparin discontinued Continue Coumadin Acute on Chronic anemia S/P 3 unit PRBCs CellCept thought to be contributing as well Anemia workup reviewed Peripheral smear: Suggestive of possible iron deficiency Vs anemia of chronic disease Less likely hemolytic given normal reticulocyte count Discussed with his primary warp hauler at [facility] Dr.Nathhapol Nguyen ([phone]) on 08/05/25: Recommends to hold CellCept and discontinue prednisone. Advised to continue dapsone and Doptelet. Also advised to get anemia panel No acute bleeding issues Advised to follow-up with hematology on discharge Continue iron supplement Continue to monitor CBC Acute kidney injury--resolved Creatinine 1.3 Monitor renal function Avoid nephrotoxic agents as able H/O ITP Hold CellCept as above Continue Dapsone and Doptelet Steroid taper course discontinued Monitor platelet count DM II HbA1c 5.9 Continue insulin per protocol Monitor blood glucose levels Hypertension Holding losartan for MAGDA Amlodipine discontinued as contributing to anemia Continue metoprolol Monitor blood pressure BP stable GERD Continue Protonix Chronic leukocytosis Likely due to prednisone use Monitor History of CVA Continue aspirin, statin Morbid Obesity BMI 41 Counselling DVT Px: Coumadin CODE STATUS Full code Family contact: Dr.Dr Cha (Sister) [phone] Disposition Home with home health Total Time Total Time Spent Total Time Spent (In Minutes): 55 minutes Discharge Plan Discharge Items Patient Disposition: Home - Home Health Services Reason For Visit: SILVA, LOWER EXT EDEMA Discharge Diagnosis: Paroxysmal atrial fibrillation with rapid response Acute DVT with superficial phlebitis IVC filter clot Acute on Chronic anemia Acute kidney injury H/O ITP Condition on Discharge: Fair Activity: Per Instructions section Exercise/Sports: Gradually increase as tolerated Non-emergency contact: Primary Care Provider and Specialist Call non-emergency contact if: you have any medication questions, your symptoms worsen, your pain is concerning for you and you have a fever Follow-up/Referrals: Hank Fine MD [Physician] - (The office will call you with a follow up appointment.) Edenilson Roldan MD [Primary Care Provider] - (Date & Time 08/12/2025 11:20 AM Provider: Edenilson Roldan MD [facility] ) Indira Farrar MD [Hospitalist] - 08/10/25 8:30 am Diet: Carb Consistent or DM2 and Heart Healthy Addtl Attending Provider Instructions: --Follow-up with your primary care physician Dr. 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 Cardiology office will call you with appointment --Follow-up with Coumadin clinic in 2 days to monitor your PT/INR and adjust Coumadin dose as needed -- Follow-up with your warp hauler on 08/10/2025 at 8:30 AM as scheduled --Obtain blood test (PT/INR) in 2 days and follow-up with Coumadin clinic for further recommendations on Coumadin dose --Obtain blood (complete blood count and basic metabolic panel) in 1 week for monitoring your hemoglobin, platelet count and renal function --Your target PT/INR is 2.0-3.0. Your PT/INR on 08/09/2025 is 2.9. Take Coumadin (warfarin) 2 mg today(08/09/2025) and 2 mg tomorrow (08/10/2025). Follow-up with Coumadin clinic for further instructions. Seek immediate medical attention if your symptoms reoccur or worsen Please review medication list provided on discharge for any medication changes as instructed. Please call if you have any questions or problems. You can reach a [facility] hospitalist on duty at [facility] 24 hours a day by calling [phone] Pending Studies at Discharge: No Stand-Alone Forms: My [facility], Smoking Cessation Medications and DC Order Prescriptions: New amiodarone 200 mg Tablet 200 mg PO DAILY Qty: 30 2RF metoprolol succinate 50 mg Tablet Extended Release 24 Hr 50 mg PO [id number] Qty: 60 2RF ferrous sulfate 325 mg (65 mg iron) Tablet,Delayed Release (Dr/Ec) 325 mg PO QAM Qty: 30 1RF oxycodone 5 mg Tablet 5 mg PO Q8H PRN (Reason: pain) Qty: 12 0RF magnesium chloride [Mag 64] 64 mg Tablet,Delayed Release (Dr/Ec) 64 mg PO BID Qty: 60 1RF warfarin 1 mg tablet 1 mg PO UD Qty: 60 1RF Rx Instructions: Coumadin dose as directed by your Coumadin clinic warfarin 2.5 mg tablet 2.5 mg PO UD Qty: 60 1RF Rx Instructions: Warfarin (Coumadin) dose as directed by Coumadin clinic Continued atorvastatin 80 mg tablet 80 mg PO DAILY aspirin 81 mg Tablet,Delayed Release (Dr/Ec) 81 mg PO DAILY pantoprazole 40 mg tablet,delayed release (DR/EC) 40 mg PO DAILY dapsone 100 mg tablet 100 mg PO DAILY fluocinonide 0.05 % cream 1 applic TOPICAL DAILY Doptelet (30 tab pack) 20 mg tablet 20 mg PO UD Rx Instructions: one tab on Fri, Fri and Friday Held mycophenolate mofetil 500 mg tablet 500 mg PO DAILY Hold Instructions: Hold taking it until further recommendations from your warp hauler Discontinued amlodipine 5 mg tablet 5 mg PO DAILY losartan 100 mg tablet 100 mg PO DAILY metoprolol tartrate 25 mg tablet 25 mg PO BID Eliquis 5 mg tablet 5 mg PO BID Discharge Orders: Discharge Order (Routine); Ordered 08/09/25 Ordered By: Leo Calle Admission Data Admit Date/Time: 07/31/25 02:13 Attending Provider: Leo Calle Admit Provider: Mario Stout Primary Care Provider: Edenilson Roldan Other Providers: [facility]; Mario Stout; Ronnie Caputo
[2025-08-09 12:59] VITALS: O2SAT 93
[2025-08-09] MEDS ORDERED: WARFARIN SOD 2 MG TAB PO SCH (16:00)
== END 2025-08-09 15:35 | disposition home health service (06) | DRG 300 ==
LOC: ED 22:53 → SUATTDRO 07-31 02:13 → EDINP 07-31 02:13 → 2W 07-31 04:38 → 2E 07-31 21:50 → 3N 08-08 14:37